=== PATIENT | female | born 1955 | race Caucasian/White ===

== ENCOUNTER 2020-08-29 08:57 | Outpatient (REF) | payer OTHER, SELFPAY | END 2020-08-29 08:58 | disposition home or self-care (01) | LOC: HO.HMGCLDS 08:57 | PROVIDERS: PCP Internal Medicine; Visit Provider Internal Medicine | DX: Z20.828 Contact with and (suspected) exposure to other viral communicable diseases (principal) | CPT/HCPCS: C9803; U0003 ==

== ENCOUNTER 2021-04-24 09:45 | Outpatient (REF) | payer OTHER, SELFPAY ==
--- NOTE | ~2021-04-24 | MM_ITS ---
EXAMINATION: MM SCREENING DIGITAL BREAST TOMOSYNTHESIS, BILATERAL CLINICAL INFORMATION: Screening. Asymptomatic. The lifetime risk of breast cancer based on the Tyrer-Cuzick Model is 7%. COMPARISON: Mammography: 04/28/2020, 04/22/2020, 04/17/2019, 03/27/2018, 03/04/2018, 02/13/2017 TECHNIQUE: Digital breast tomosynthesis is performed in both the craniocaudal and mediolateral oblique views along with computer-aided detection (CAD). Synthesized 2D images are generated from the tomosynthesis. FINDINGS: There are scattered areas of fibroglandular density (ACR BI-RADS breast composition Category b). Parenchymal pattern is similar to prior studies. No developing density. There are no significant masses, abnormal calcifications, or other abnormalities. There is biopsy clip marker again noted posterior 4:00 right breast. Scattered bilateral punctate round and vascular calcifications are again noted. The axilla and skin contours are unremarkable. MM/MM tomosynthesis screening BI IMPRESSION: No mammographic evidence of malignancy. ASSESSMENT: BI-RADS 2: Benign RECOMMENDATION: Routine annual mammography screening. This patient's information was entered into a reminder system with a target due date for their next mammogram.
== END 2021-04-24 09:46 | disposition home or self-care (01) ==
LOC: HO.MAMMO 09:45
PROVIDERS: PCP Internal Medicine; Visit Provider Internal Medicine
DX: Z12.31 Encounter for screening mammogram for malignant neoplasm of breast (principal)
CPT/HCPCS: 77063; 77067

== ENCOUNTER 2021-05-02 08:44 | Outpatient (REF) | payer OTHER, SELFPAY ==
[2021-05-05 03:37] LABS: HPV mRNA E6/E7 rflx Not Detected (Not Detected)
== END 2021-05-02 08:45 | disposition home or self-care (01) ==
LOC: HO.LAB 08:44
PROVIDERS: PCP Internal Medicine; Visit Provider Advanced Practice Midwife
DX: Z01.419 Encounter for gynecological examination (general) (routine) without abnormal findings (principal); Z11.51 Encounter for screening for human papillomavirus (HPV)
CPT/HCPCS: 87624; 88142

== ENCOUNTER 2021-06-16 09:57 | Outpatient (REF) | payer OTHER, SELFPAY ==
[2021-06-16 12:11] LABS: MANUAL DIFF FLAG NO
[2021-06-16 12:33] LABS: Basophils Percent Auto 0.5 % (0-2); Eosinophils Absolute Auto 0.1 X10*3/uL (0.0-0.4); Eosinophils Percent Auto 1.4 % (0-4); Hematocrit 41.8 % (37-47); Hemoglobin 13.7 g/dl (12.0-16.0); Imm Gran Abs Auto 0.01 X10*3/uL (0.00-0.03); Imm Gran Pct Auto 0.1 % (0.0-0.4); Lymphocytes Absolute Auto 2.7 X10*3/uL (1.2-4.9); Lymphocytes Percent Auto 36.4 % (20-40); Mean Corpuscular HGB Conc 32.8 g/dl (31.0-35.0); Mean Corpuscular Hemoglobin 31.1 pg (27.0-33.0); Mean Corpuscular Volume 94.8 fL (80-98); Mean Platelet Volume 10.4 fL (9.4-12.3); Monocytes Absolute Auto 0.4 X10*3/uL (0.1-1.2); Neutrophils Absolute Auto 4.1 X10*3/uL (2.0-8.3); Neutrophils Percent Auto 55.6 % (45-73); Platelet Count 351 X10*3/uL (160-400); Red Blood Count 4.41 X10*6/uL (4.20-5.50); Red Cell Distribution Width 13.1 % (11.0-16.0); White Blood Count 7.4 X10*3/uL (4.8-10.8)
[2021-06-16 12:51] LABS: Alanine Aminotransferase 32 U/L (0-31); Albumin Level 4.3 g/dL (3.5-5.0); Alkaline Phosphatase 70 U/L (39-117); Anion Gap 12 (12-20); Aspartate Amino Transferase 26 U/L (5-31); Bilirubin Total 0.6 mg/dL (0.0-1.0); Blood Urea Nitrogen 12 mg/dL (9-16); Calcium 9.1 mg/dL (8.4-10.2); Carbon Dioxide 29 mmol/L (22-29); Chloride 106 mmol/L (96-108); Cholesterol 212 mg/dL; Estimated Glomerular Filt Rate > 60; Glucose Fasting 97 mg/dL (60-99); HDL Cholesterol 62 mg/dL; LDL Cholesterol Calculated 126 mg/dl; Potassium 4.4 mmol/L (3.3-5.1); Sodium 143 mmol/L (135-145); Total Protein 6.9 g/dL (6.5-8.0); Triglycerides 120 mg/dL
[2021-06-16 13:17] LABS: Vitamin D 25-OH Total 34.7 ng/mL (>30)
== END 2021-06-16 09:58 | disposition home or self-care (01) ==
LOC: HO.HMGCLDS 09:57
PROVIDERS: PCP Internal Medicine; Visit Provider Internal Medicine
DX: Z00.00 Encounter for general adult medical examination without abnormal findings (principal)
CPT/HCPCS: 36415; 80053; 80061; 82306; 85025

== ENCOUNTER 2021-11-24 10:03 | Outpatient (REF) | payer MEDICARE, OTHER, SELFPAY ==
[2021-11-24 13:43] LABS: MANUAL DIFF FLAG NO
[2021-11-24 13:50] LABS: Basophils Absolute Auto 0.1 X10*3/uL (0.0-0.2); Basophils Percent Auto 0.7 % (0-2); Eosinophils Absolute Auto 0.1 X10*3/uL (0.0-0.4); Eosinophils Percent Auto 1.6 % (0-4); Hemoglobin 13.8 g/dl (12.0-16.0); Imm Gran Abs Auto 0.01 X10*3/uL (0.00-0.03); Imm Gran Pct Auto 0.1 % (0.0-0.4); Lymphocytes Absolute Auto 2.3 X10*3/uL (1.2-4.9); Lymphocytes Percent Auto 33.2 % (20-40); Mean Corpuscular HGB Conc 32.9 g/dl (31.0-35.0); Mean Corpuscular Hemoglobin 30.9 pg (27.0-33.0); Mean Platelet Volume 10.2 fL (9.4-12.3); Monocytes Absolute Auto 0.5 X10*3/uL (0.1-1.2); Monocytes Percent Auto 6.9 % (2-11); Neutrophils Absolute Auto 3.9 x10*3/uL (2.0-8.3); Neutrophils Percent Auto 57.5 % (45-73); Platelet Count 334 X10*3/uL (160-400); Red Blood Count 4.47 X10*6/uL (4.20-5.50); White Blood Count 6.8 X10*3/uL (4.8-10.8)
[2021-11-24 14:02] LABS: Alanine Aminotransferase 29 U/L (0-31); Albumin Level 4.5 g/dL (3.5-5.0); Alkaline Phosphatase 69 U/L (39-117); Anion Gap 13 (12-20); Aspartate Amino Transferase 23 U/L (5-31); Bilirubin Total 0.5 mg/dL (0.0-1.0); Blood Urea Nitrogen 13 mg/dL (9-16); C Reactive Protein 0.38 mg/dL (< or = 0.50); Calcium 9.3 mg/dL (8.4-10.2); Carbon Dioxide 28 mmol/L (22-29); Chloride 104 mmol/L (96-108); Estimated Glomerular Filt Rate > 60; Glucose Random 84 mg/dL (60-115); Lipase 17 U/L (8-78); Potassium 4.3 mmol/L (3.3-5.1); Sodium 141 mmol/L (135-145); Total Protein 7.2 g/dL (6.5-8.0)
[2021-11-27 16:41] LABS: Transglutaminase Ab IgG <1.0 U/mL; Transglutaminase IgA <1.0 U/mL
== END 2021-11-24 10:04 | disposition home or self-care (01) ==
LOC: HO.10HDL 10:03
PROVIDERS: Visit Provider Internal Medicine
DX: E78.00 Pure hypercholesterolemia, unspecified (principal); R63.4 Abnormal weight loss; R19.4 Change in bowel habit
CPT/HCPCS: 36415; 80053; 83690; 85025; 86140; 86364

== ENCOUNTER 2021-11-27 13:43 | Outpatient (REF) | payer MEDICARE, OTHER, SELFPAY ==
--- NOTE | ~2021-11-27 | CT_ITS ---
EXAMINATION: CT ABDOMEN AND PELVIS WITH CONTRAST CLINICAL INFORMATION: Diarrhea and weight loss. Change in bowel habits. COMPARISON: Previous CT of the abdomen and pelvis March 2016. TECHNIQUE: Multidetector volumetric images were obtained from the superior aspect of the liver through the pubic symphysis following administration 85 mL of Omnipaque 350 intravenous contrast. Sagittal and coronal reformatted images were obtained on the technologist's workstation. Oral contrast: Yes This CT examination was performed using dose optimization techniques as appropriate, variously including the following: *Automated exposure control *Adjustment of mA and/or kV according to patient size (this includes techniques or standardized protocols for targeted exams where dose is matched to indication/reason for exam; i.e. extremities or head) *Use of iterative reconstruction technique DLP: 516 mGy-cm FINDINGS: LUNG BASES: The visualized lung bases are clear. There is question of mild wall thickening of the distal thoracic esophagus. LIVER, GALLBLADDER, AND BILIARY TREE: The liver is low in attenuation suggestive of fatty infiltration. There is a 2 cm lesion in the central liver. This is similar in size to March 2016 exam. This demonstrates peripheral puddling enhancement and may represent a hemangioma. There is a second small low-attenuation 7 mm lesion in the caudate lobe axial image 17 series 3. This is similar to the 2016 exam as well. The gallbladder has been removed. There is no intrahepatic or extrahepatic biliary duct dilatation. PANCREAS: Unremarkable. SPLEEN: Unremarkable. ADRENAL GLANDS: Unremarkable. KIDNEYS AND URETERS: The kidneys are normal in size, shape, and attenuation. No hydronephrosis, hydroureter, or calculi seen. No perinephric stranding. BLADDER: Unremarkable. GASTROINTESTINAL TRACT: There is mild diverticulosis. The small and large bowel are otherwise unremarkable. The appendix is unremarkable. The stomach is unremarkable. ABDOMINAL WALL: There is diastasis of the rectus muscles and small umbilical hernia containing fat. LYMPH NODES: Normal. VASCULAR: There is evidence of atherosclerotic disease. No aneurysm is seen. PELVIC VISCERA: Unremarkable. OSSEOUS STRUCTURES: There are degenerative changes of the spine and hip joints. CT/CT abdomen pelvis w con IMPRESSION: Fatty liver. Two liver lesions stable from older exam from 2016 suggestive of benign liver lesions. Mild diverticulosis of the colon. No evidence of diverticulitis. Fleischner guidelines were followed.
[2021-11-27] MEDS: iohexoL 350 MG/ML 100 ML INFUS..BTL IV (14:57)
== END 2021-11-27 13:44 | disposition home or self-care (01) ==
LOC: HO.CT 13:43
PROVIDERS: PCP Internal Medicine; Visit Provider Internal Medicine
DX: R19.7 Diarrhea, unspecified (principal); R63.4 Abnormal weight loss; R19.4 Change in bowel habit
CPT/HCPCS: 74177; Q9967

== ENCOUNTER 2022-04-26 08:57 | Outpatient (REF) | payer MEDICARE, SELFPAY ==
--- NOTE | ~2022-04-26 | MM_ITS ---
EXAMINATION: MM SCREENING DIGITAL BREAST TOMOSYNTHESIS, BILATERAL CLINICAL INFORMATION: Screening. Asymptomatic. The lifetime risk of breast cancer based on the Tyrer-Cuzick Model is 7%. COMPARISON: Mammography: 06/05/2021, 04/28/2020, 04/22/2020, 04/17/2019, 03/04/2018; targeted right breast ultrasound 04/28/2020. TECHNIQUE: Digital breast tomosynthesis is performed in both the craniocaudal and mediolateral oblique views along with computer-aided detection (CAD). Synthesized 2D images are generated from the tomosynthesis. FINDINGS: There are scattered areas of fibroglandular density (ACR BI-RADS breast composition Category b). There are no significant masses, abnormal calcifications, or other abnormalities. There are scattered shifting fibroglandular parenchymal densities from year to year related to variation in positioning. No developing density or significant changes. The axilla are unremarkable. Again, there are scattered bilateral round and vascular calcifications. MM/MM tomosynthesis screening BI IMPRESSION: No significant changes from prior exams. ASSESSMENT: BI-RADS 2: Benign RECOMMENDATION: Routine annual mammography screening. This patient's information was entered into a reminder system with a target due date for their next mammogram.
== END 2022-04-26 08:58 | disposition home or self-care (01) ==
LOC: HO.MAMMO 08:57
PROVIDERS: Visit Provider Internal Medicine
DX: Z12.31 Encounter for screening mammogram for malignant neoplasm of breast (principal)
CPT/HCPCS: 77063; 77067

== ENCOUNTER 2023-01-21 09:28 | Outpatient (REF) | payer MEDICARE, SELFPAY ==
[2023-01-21 11:17] LABS: MANUAL DIFF FLAG NO
[2023-01-21 11:42] LABS: Basophils Absolute Auto 0.1 X10*3/uL (0.0-0.2); Basophils Percent Auto 0.7 % (0-2); Eosinophils Absolute Auto 0.1 X10*3/uL (0.0-0.4); Eosinophils Percent Auto 1.7 % (0-4); Hematocrit 41.5 % (37.0-47.0); Hemoglobin 13.7 g/dl (12.0-16.0); Imm Gran Abs Auto 0.01 X10*3/uL (0.00-0.03); Imm Gran Pct Auto 0.1 % (0.0-0.4); Lymphocytes Absolute Auto 2.7 X10*3/uL (1.2-4.9); Mean Corpuscular Hemoglobin 30.9 pg (27.0-33.0); Mean Corpuscular Volume 93.7 fL (80.0-98.0); Mean Platelet Volume 10.3 fL (9.4-12.3); Monocytes Absolute Auto 0.5 X10*3/uL (0.1-1.2); Monocytes Percent Auto 6.4 % (2-11); Neutrophils Absolute Auto 3.9 x10*3/uL (2.0-8.3); Neutrophils Percent Auto 54.1 % (45-73); Platelet Count 336 X10*3/uL (160-400); Red Blood Count 4.43 X10*6/uL (4.20-5.50); Red Cell Distribution Width 12.7 % (11.0-16.0); White Blood Count 7.2 X10*3/uL (4.8-10.8)
[2023-01-21 11:49] LABS: Alanine Aminotransferase 21 U/L (0-31); Albumin Level 4.2 g/dL (3.5-5.0); Alkaline Phosphatase 61 U/L (39-117); Anion Gap 11 (12-20); Aspartate Amino Transferase 19 U/L (5-31); Bilirubin Total 0.5 mg/dL (0.0-1.0); Blood Urea Nitrogen 14 mg/dL (9-16); Carbon Dioxide 28 mmol/L (22-29); Chloride 107 mmol/L (96-108); Cholesterol 179 mg/dL; Estimated Glomerular Filt Rate > 60; Glucose Fasting 88 mg/dL (60-99); HDL Cholesterol 57 mg/dL; LDL Cholesterol Calculated 103 mg/dl; Potassium 3.9 mmol/L (3.3-5.1); Sodium 142 mmol/L (135-145); Total Protein 6.6 g/dL (6.5-8.0); Triglycerides 97 mg/dL
[2023-01-21 12:06] LABS: Vitamin D 25-OH Total 35.3 ng/mL (>30)
== END 2023-01-21 09:29 | disposition home or self-care (01) ==
LOC: HO.HMGCLDS 09:28
PROVIDERS: PCP Internal Medicine; Visit Provider Internal Medicine
DX: Z00.00 Encounter for general adult medical examination without abnormal findings (principal)
CPT/HCPCS: 36415; 80053; 80061; 82306; 85025

== ENCOUNTER 2023-05-02 08:41 | Outpatient (REF) | payer MEDICARE, SELFPAY ==
--- NOTE | ~2023-05-02 | MM_ITS ---
EXAMINATION: BONE DENSITOMETRY CLINICAL INDICATION: Menopause. COMPARISON: This is the patient's baseline examination. TECHNIQUE: Using a Voxel (Internap) DXA System (software version: 13.1) manufactured by [employer], dual-energy x-ray absorptiometry was performed of the lumbar spine and left hip. The images are of good technical quality. Summary results are attached. FINDINGS: LEFT FEMUR, NECK: BMD 0.839 g/cm2, Z-score -0.3, T-score -1.4, osteopenia. LEFT FEMUR, TOTAL: BMD 0.947 g/cm2, Z-score 0.3, T-score -0.5, normal. AP SPINE L1-L4: BMD 1.068 g/cm2, Z-score 0.0, T-score -0.9, normal. IDENTIFIED RISK FACTORS: Menopause. HISTORY OF FRACTURE: None listed. MEDICATIONS: Calcium supplements or multivitamin, vitamin D. MM/XR DEXA axial skeleton IMPRESSION: 1. DIAGNOSIS: Osteopenia based on the lowest T-score value of -1.4 in the femoral neck applying World Health Organization criteria. 2. 10-YEAR FRACTURE RISK PREDICTION, FRAX: Major osteoporotic fracture (clinical spine, forearm, hip or shoulder) 7.5%. Hip fracture 0.7%. 3. Treatment Recommendations: NOF guidelines recommend consideration for treatment in postmenopausal women and men age 50 and older presenting with the following: -A hip or vertebral (clinical or morphometric) fracture. -T-score less than or equal to -2.5 at the femoral neck or spine after appropriate evaluation to exclude secondary causes. -Low bone mass at the hip or spine and a 10-year fracture probability by FRAX of greater than or equal to 3% for hip fracture or greater than or equal to 20% for major osteoporotic fracture based on the [place] adapted WHO algorithm. 4. Other Recommendations: All treatment decisions require clinical judgment and consideration of individual patient factors, including patient preferences, comorbidities, previous drug use, risk factors not captured in the FRAX model (e.g. frailty, falls, vitamin D deficiency, increased bone turnover, interval significant decline in bone density) and possible under or overestimation of fracture risk by FRAX. Additional medical evaluation for secondary cause of low bone mineral density may be appropriate. FUTURE SCAN RECOMMENDATION: People with diagnosed cases of osteoporosis or at high risk for fracture should have regular bone mineral density tests. For patients eligible for Medicare, routine testing is allowed once every 2 years. The testing frequency can be increased to one year for patients who have rapidly progressing disease, those who are receiving or discontinuing medical therapy to restore bone mass, or have additional risk factors.
--- NOTE | ~2023-05-02 | MM_ITS ---
EXAMINATION: MM SCREENING DIGITAL BREAST TOMOSYNTHESIS, BILATERAL CLINICAL INFORMATION: Screening. Asymptomatic. COMPARISON: Mammography: 04/26/2022, 04/24/2021, and dating back to 10/22/2012. TECHNIQUE: Digital breast tomosynthesis is performed in both the craniocaudal and mediolateral oblique views along with computer-aided detection (CAD). Synthesized 2D images are generated from the tomosynthesis. FINDINGS: There are scattered areas of fibroglandular density (ACR BI-RADS breast composition Category b). There are no suspicious masses, suspicious grouped calcifications, or areas of architectural distortion. The parenchymal pattern is stable from prior exams. There are bilateral vascular calcifications, and stable punctate loosely grouped calcifications with benign appearance in both breasts. Post benign biopsy clip far posterior medial right breast. MM/MM tomosynthesis screening BI IMPRESSION: No mammographic evidence of malignancy. Stable benign findings. ASSESSMENT: BI-RADS BI-RADS 2 - Benign Findings RECOMMENDATION: Routine annual mammography screening. 1 year F/U This examination should not preclude the clinical evaluation of a suspicious palpable abnormality. This patient's information was entered into a reminder system with a target due date for their next mammogram.
== END 2023-05-02 08:42 | disposition home or self-care (01) ==
LOC: HO.MAMMO 08:41
PROVIDERS: PCP Internal Medicine; Visit Provider Internal Medicine
DX: Z12.31 Encounter for screening mammogram for malignant neoplasm of breast (principal); Z13.820 Encounter for screening for osteoporosis; Z78.0 Asymptomatic menopausal state
CPT/HCPCS: 77063; 77067; 77080

== ENCOUNTER → 2023-05-02 09:15 | Outpatient (BNV) | payer MEDICARE, SELFPAY | PROVIDERS: PCP Internal Medicine; Visit Provider Radiology Diagnostic Radiology | DX: Z12.31 Encounter for screening mammogram for malignant neoplasm of breast (principal) | CPT/HCPCS: 77063; 77067; 77080 ==

== ENCOUNTER 2023-05-10 09:47 | Outpatient (AMB) | payer MEDICARE, SELFPAY ==
--- NOTE | 2023-05-10 09:52 | MHC.OFFVIS ---
Intake Vital Signs 05/10/23 09:55 Height 5 ft 2 in Weight 187 lb BMI 34.2 BP 122/74 Intake Visit Reasons: Annual Intake Note: no concerns The patient agreed to use of a medical reimbursement manager during this encounter. Scribed for MISTY Mercer by Vicenta Alba medical reimbursement manager, on 05/10/2023 at 10:30 am EST Crew Director Required: No Information Interpreted: non-clinical & clinical Lead Press Operator: Lead Press Operator Present (Marline HARO) Accompanied by: Self / Same As Patient Allergies No Known Allergies Allergy (Verified 05/10/23 09:56) Post menopausal: Yes HPI HPI Comments History of Present Illness Details She is a postmenopausal woman presenting for annual exam. 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 She attempts to eat a healthy diet including Calcium and Vitamin D. She stays active with walking, has not been able to recently due to weather. Not currently sexually active. Denies vaginal itching and irritation. Denies family hx of breast, colon and ovarian cancer. Last pap smear 2020. Last mammogram 05/02/23. UTD on colonoscopy. 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 [employer] Sexual orientation: Straight/Heterosexual Gender identity: Female Female Reproductive History Menstrual Age of Menarche: 12 Menopause type: natural Total pregnancies: 4 Full term: 4 Number of Living Children: 4 Date of last pap smear: 05/03/21 Date of Mammogram: 05/02/23 Date of last Bone Density Screenin05/02/23 Review of Systems Const All systems reviewed & are unremarkable except as noted in HPI and below Physical Exam Vital Signs: Last Vital Signs BP 122/74 05/10/23 09:55 BMI result Body Mass Index 34.2 Const General: cooperative, healthy appearing, no acute distress, well developed and alert Orientation/consciousness: patient oriented x3 HEENT Head: Yes normal to inspection Eyes General: appearance normal, both eyes and all related structures Neck Neck: Yes normal visual inspection Thyroid: Thyroid normal Chest Chest palpation & inspection: normal inspection of the chest Breast/axilla inspection: normal inspection of the breasts (no puckering, dimpling, peau de orange, retraction, discharge, masses) Breast/axilla palpation: normal palpation of the breasts Resp Effort & Inspection: normal respiratory effort GI Inspection: Yes normal to inspection Palpation (GI): Soft to palpation Rectal Exam - Female: deferred General: Yes bladder normal to palpation External Female Exam: normal external appearance and normal appearance of the urethra Speculum Exam - Vagina: normal appearance of the vagina, normal palpation and normal vaginal discharge Speculum Exam - Cervix: normal appearance of the cervix and normal palpation Bimanual exam- vagina & uterus: normal bimanual exam, normal palpation, uterine size normal, bladder normal to palpation and normal palpation Bimanual Exam- Adnexa, other: normal adnexae and no masses Skin General skin exam: no rashes or lesions noted Neuro General: patient oriented x3 Cognition (Neuro): normal cognition Extrem General: Yes normal to inspection Psych Attitude: cooperative Thought process: Normal thought process present Assessment & Plan Assessment & Plan (1) Encounter for annual routine gynecological examination: Code(s): Z01.419 - Encounter for gynecological examination (general) (routine) without abnormal findings Plan: Discussed: Current recommendations for pap smears per ASCCP guidelines. Breast awareness and periodic self breast exams. Encouraged yearly mammograms. Maintaining a healthy lifestyle including a well balanced diet including Calcium and Vitamin D and routine exercise. Contact office with any PMB. All of her questions and concerns were addressed to the best of my ability. RTO in one year for AG. Coding Level of Care Code Est Pt Prev Care >65y(42738) Diagnoses Encounter for annual routine gynecological examination Z01.419
[2023-05-10 09:55] VITALS: BP 122/74; BMI 34.2
== END 2023-05-10 10:37 | disposition home or self-care (01) ==
LOC: HO.HWS 09:47
PROVIDERS: PCP Internal Medicine; Visit Provider Advanced Practice Midwife
DX: Z01.419 Encounter for gynecological examination (general) (routine) without abnormal findings (principal)
CPT/HCPCS: G0101

== ENCOUNTER → 2023-05-10 09:47 | Outpatient (BNVA) | payer MEDICARE, SELFPAY | PROVIDERS: PCP Internal Medicine; Visit Provider Advanced Practice Midwife ==

== ENCOUNTER 2023-06-28 11:35 | Outpatient (REF) | payer MEDICARE, SELFPAY ==
--- NOTE | ~2023-06-28 | XR_ITS ---
EXAMINATION: XR HIP, RIGHT CLINICAL INFORMATION: Right hip pain COMPARISON: None available. TECHNIQUE: Two views of the right hip. AP pelvis FINDINGS: No fracture, dislocation or destructive process. There is marked narrowing of the central and inferior hip joint space with small marginal osteophyte extending off the femoral head. Small bone island is again seen in the right ischial tuberosity. There is mild cysts varying noted around the greater trochanters of both hips. The sacroiliac joints and pubic symphysis are within normal limits. There is also marked central and inferior narrowing of the left hip joint space. XR/XR hip RT min 2V IMPRESSION: 1. Marked osteoarthritis of the right hip. 2. Marked osteoarthritis of the left hip.
== END 2023-06-28 11:36 | disposition home or self-care (01) ==
LOC: HO.XRAY 11:35
PROVIDERS: PCP Internal Medicine; Visit Provider Internal Medicine
DX: M25.551 Pain in right hip (principal)
CPT/HCPCS: 73502

== ENCOUNTER 2023-07-04 09:42 | Outpatient (AMB) | payer MEDICARE, SELFPAY ==
[2023-07-04 11:38] VITALS: BP 138/82; PULSE 82; TEMP 36.9; O2SAT 96; BMI 34.2
--- NOTE | 2023-07-04 11:38 | MHC.OFFWIV ---
Intake Vital Signs 07/04/23 11:38 Height 5 ft 2 in Weight 84.822 kg BMI 34.2 BP 138/82 Blood Pressure Location Lt brachial Position Sitting Pulse 82 Pulse Source Pulse Oximeter Temp 98.4 F Temp Source Temporal Artery Scan Pulse Oximetry (%) 96 Intake Visit Reasons: EST/righ pointer finger injury/[phone] Intake Note: pt is here for c/o left pointer finger injury that happened years ago, pt states theres pain today and wants to have it be looked at Patient Tobacco Use Status: Never used Tobacco Allergies No Known Allergies Allergy (Verified 07/04/23 11:39) Do you need a note to return to daycare/school/sports/work: Yes HPI HPI Comments History of Present Illness Details this is a 67-year-old female presenting with redness to the tip of her left middle finger and swelling with a small bruise, patient reports bruises typically there, she reports that she injured this finger years ago and since then this fingers been giving her issues. Reports pain that is worse with movement and better at rest. Denies recent trauma. Denies fevers, chills, headache, vision changes, dizziness, weakness, chest pain, shortness of breath, numbness and tingling. Physical exam with slight erythema to the distal aspect of left middle finger. Full range of motion that is painless. 2+ radial pulses, no wrist drop. Concerns for possible gout versus inflammatory arthritis versus sprain or strain. Unlikely fracture, dislocation, threat to ruiz, arterial occlusion are venous occlusion. Plan will discharge with prednisone, orthopedic follow-up in obtain an x-ray. Educated patient on diagnosis and treatment plan, answered all question, patient verbalizes understanding. At this time patient will be discharged home, advised to return with new or worsening symptoms. Educated on worrisome signs and symptoms and when to return. At this time I feel comfortable discharge home. 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 [employer] Sexual orientation: Straight/Heterosexual Gender identity: Female Female Reproductive History Menstrual Age of Menarche: 12 Review of Systems Const Details: Constitutional : No Weight loss, No Fever, No Chills, No Fatigue, No Malaise ENT/Mouth : No sore throat, No Rhinorrhea Eyes: No Eye Pain, No Swelling, No Redness Cardiovascular : No Chest Pain, No SOB, No Dyspnea on Exertion, No Orthopnea, No Edema, No Palpitations Respiratory : No Cough, No Sputum, No Wheezing Gastrointestinal : No Nausea, No Vomiting, No Diarrhea, No Constipation, No abdominal Pain, No Hematochezia, No Melena Genitourinary : No Dysuria, No Urinary Frequency, No Hematuria, Musculoskeletal : + joint pain, No Myalgias, No Joint Swelling Skin : No Skin Lesions, No rash Neuro : No Weakness, No Numbness, No Dizziness, No Headache Psych : No Anxiety/Panic, No Depression All other systems reviewed and are negative All systems reviewed & are unremarkable except as noted in HPI and below Physical Exam Vital Signs: Last Vital Signs Temp 98.4 F 07/04/23 11:38 Pulse 82 07/04/23 11:38 BP 138/82 07/04/23 11:38 Pulse Ox 96 07/04/23 11:38 BMI result Body Mass Index 34.2 vss Appearance: Alert.? Oriented X3.? No acute distress.? Head: Normocephalic, atraumatic, no step-offs or deformities Eyes: Pupils equal, round and reactive to light.? CVS: Normal heart rate and rhythm.? Pulses normal.? Respiratory: No respiratory distress.? Breath sounds normal.? Abdomen: Soft and nontender.? Skin: Skin warm and dry.? Normal skin color.? Normal skin turgor.? Extremities: No lower extremity edema.? No calf ttp. 5/5 strength to bilateral upper and lower extremities slight erythema to the distal aspect of left middle finger. Full range of motion that is painless. 2+ radial pulses, no wrist drop. Back: No midline tenderness, no C-spine tenderness, full range of motion, no CVA tenderness bilaterally Neuro: Oriented X 3.? No motor deficit.? No sensory deficit. CN 2-12 intact Assessment & Plan Assessment & Plan (1) Finger pain, left: Code(s): M79.645 - Pain in left finger(s) Plan Take your medications as prescribed. If you were prescribed antibiotics today, it is important that you take your medication to their entirety, do not skip any doses, do not finish them early. Follow-up with your primary care provider this week. Return to the emergency department with new or worsening symptoms. Such as fevers, chills, chest pain, shortness of breath, nausea, vomiting, dizziness, headache, vision changes, lethargy In case of emergency call 911 Orders: Orders XR hand LT 2V Today M79.645 - Pain in left finger(s) Referrals Orthopedics Referral M79.645 - Pain in left finger(s) Medications: New prednisone 40 mg (2 x 20 mg) PO DAILY 10 tabs 0RF 5 days acetaminophen (Tylenol) 650 mg (2 x 325 mg) PO Q4H PRN 30 tabs 0RF pain Coding Level of Care Code Est Pt Level 3 (58434) Diagnoses Finger pain, left M79.645
== END 2023-07-04 13:03 | disposition home or self-care (01) ==
PROVIDERS: PCP Internal Medicine; Visit Provider Physician Assistant
DX: M79.645 Pain in left finger(s) (principal)
CPT/HCPCS: 99213

== ENCOUNTER 2023-07-04 11:58 | Outpatient (REF) | payer MEDICARE, SELFPAY ==
--- NOTE | ~2023-07-04 | XR_ITS ---
EXAMINATION: XR HAND, LEFT CLINICAL INFORMATION: Pain in the fingers, left. COMPARISON: 01/21/2012 TECHNIQUE: PA, lateral, and oblique views of the left hand. FINDINGS: There is no evidence of acute fracture or dislocation of the left hand. The carpal, carpometacarpal, and metacarpophalangeal joints are maintained. No significant narrowing of the proximal interphalangeal joints is identified. There is spurring seen about the 1st interphalangeal joint. There is joint space narrowing with marginal spurring seen involving the distal interphalangeal joints most significant involving the 4th and 5th distal interphalangeal joints. No significant erosive changes are appreciated. XR/XR hand LT 2V IMPRESSION: Findings of osteoarthritis, distal interphalangeal joints.
== END 2023-07-04 11:59 | disposition home or self-care (01) ==
LOC: HO.HMGCX 11:58
PROVIDERS: PCP Internal Medicine; Visit Provider Physician Assistant
DX: M79.645 Pain in left finger(s) (principal)
CPT/HCPCS: 73120

== ENCOUNTER 2023-07-22 09:31 | Outpatient (AMB) | payer MEDICARE, SELFPAY ==
--- NOTE | 2023-07-22 09:33 | A.OFFVIS_ITS ---
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 Patient reports having an injury years ago, she recently presented [place] [facility] [place]04[place]23 where she was prescribed prednisone and referred to orthopedics. Currently is not having pain or discomfort at the moment. She states not taking the prednisone, however she took Aleve which gave her relief. Patient has concerns of her right hip pain. 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 She was seen at walk-in clinic on 07/04/23 where she was prescribed prednisone and referred to our of joss. She states she has no pain or discomfort in her finger at the moment. She has discontinued taking prednisone however she does finds relief with Aleve. She does not have a history of gout. 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 [employer] Sexual orientation: Straight/Heterosexual Gender identity: Female Female Reproductive History Menstrual Age of Menarche: 12 Review of Systems Const All systems reviewed & are unremarkable except as noted in HPI and below Physical Exam Vital Signs: BMI result Body Mass Index 34.2 Const General: cooperative, healthy appearing, comfortable, no acute distress, well developed and alert Orientation/consciousness: patient oriented x3 HEENT Head: Yes normal to inspection, Yes normocephalic and Yes atraumatic Eyes General: appearance normal, both eyes and all related structures Resp Effort & Inspection: normal respiratory effort and able to speak in complete sentences Cardio Rate: regular rate Peripheral pulses: Peripheral pulses 2+ throughout GI Palpation (GI): Soft to palpation Skin Lesions: no lesions Rashes: no rashes Neuro General: patient oriented x3 Extrem Other: Left index finger: Normal to inspection. No redness no swelling. She has full sensation throughout the digit and she can fully extend and flex the digit. 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 I did explain that if she develops any type of redness, increased pain or swelling. She can try doing warm soapy water soaks but she can also contact the office or return to urgent care to see if she needs antibiotics, otherwise she will follow-up as needed. Patient Instructions: Scribed for Celia Connelly PA-C, by Lupillo Oconnor nuclear medical technologist, on 07/22/2023 at 9:45 AM EST. ICelia PA-C, have personally reviewed and agree with the information entered by the scribe. 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
[2023-07-22 09:34] VITALS: BMI 34.2
== END 2023-07-22 10:20 | disposition home or self-care (01) ==
PROVIDERS: PCP Internal Medicine; Visit Provider Physician Assistant
DX: M15.1 Heberden's nodes (with arthropathy) (principal)
CPT/HCPCS: 99203

== ENCOUNTER → 2023-07-22 09:31 | Outpatient (BNVA) | payer MEDICARE, SELFPAY | PROVIDERS: PCP Internal Medicine; Visit Provider Physician Assistant | DX: M15.1 Heberden's nodes (with arthropathy) (principal) | CPT/HCPCS: 99202 ==

== ENCOUNTER 2023-10-16 09:00 | Outpatient (RCR) | payer MEDICARE, SELFPAY | END 2023-11-18 11:12 | disposition home or self-care (01) | LOC: HO.PTCHIC 09:00 | PROVIDERS: PCP Internal Medicine; Visit Provider Internal Medicine | DX: M25.551 Pain in right hip (principal) | CPT/HCPCS: 97110; 97140; 97161; 97162 ==

== ENCOUNTER 2023-11-22 09:13 | Outpatient (AMB) | payer MEDICARE, SELFPAY ==
--- NOTE | 2023-11-22 09:25 | MHC.OFFVIS ---
Intake Vital Signs 11/22/23 09:26 Height 5 ft 2 in Weight 187 lb BMI 34.2 Intake Visit Reasons: New prob - Right hip pain Intake Note: Margot 68 yr old female presents today for a new problem visit for her right hip pain. States pain started over a year ago and has worsen since. Pain in her groin when sitting and standing, feels like it locks at times and lifting her leg when walking up a flight of stairs. Patient has tried and failed P.T. She recall about 3 years ago she fell down the stairs with no fractures. Denies numbness and tinging in toes. States alieve helps temporarily. Allergies No Known Allergies Allergy (Verified 11/22/23 09:32) Medication List - Last Reconciled 11/22/23 by BONITA Walters-C acetaminophen (Tylenol) 650 mg (2 x 325 mg) PO Q4H PRN cholecalciferol (vitamin D3) 10 mcg PO DAILY simvastatin 40 mg PO DAILY HPI New prob - Right hip pain HPI Details 68-year-old female who presents to the office today for evaluation of right hip pain for over a year. She states she has worsening pain in her groin region which is aggravated with sitting and standing. She also c/o occasional locking in her leg with going upstairs. She denies any numbness or tingling in toes. She finds transient relief with Aleve. She had undergone physical therapy in the past which provided her with minimal relief. She has a history of fall down the stairs about 3 years ago. 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 [employer] Sexual orientation: Straight/Heterosexual Gender identity: Female Female Reproductive History Menstrual Age of Menarche: 12 Review of Systems Const All systems reviewed & are unremarkable except as noted in HPI and below Physical Exam Vital Signs: BMI result Body Mass Index 34.2 Const General: cooperative and no acute distress Orientation/consciousness: patient oriented x3 Resp Effort & Inspection: normal respiratory effort and able to speak in complete sentences Cardio Peripheral pulses: Peripheral pulses 2+ throughout Neuro General: patient oriented x3 Extrem Other: Right hip: Normal to inspection, ambulates with a slight limp. Has mild discomfort with internal and extension rotation of hip. No significant stiffness. Mild discomfort with hip flexion against resistance. NVI. Results Reviewed Results Reviewed: xrays of the right hip obtained on 06/28/23 show mild hip oa Assessment & Plan Assessment & Plan (1) Osteoarthritis of right hip: Code(s): M16.11 - Unilateral primary osteoarthritis, right hip Qualifiers: Osteoarthritis type: primary Qualified Code(s): M16.11 - Unilateral primary osteoarthritis, right hip Plan We discussed options which include conservative vs surgical intervention. At this time, she will proceed with intraarticular steroid injection which will be performed under fluoroscopy in the hospital. She will call me to discuss the symptoms if it persists or worsen and meet with Dr. Stevenson to discuss surgical intervention. Orders: Orders FL arthrogram hip RT Today M16.11 - Unilateral primary osteoarthritis, right hip Patient Instructions: Scribed for Celia Connelly PA-C, by Lupillo Oconnor medical apparatus model maker, on 11/22/2023 at 9:30 AM EST. ICelia PA-C, have personally reviewed and agree with the information entered by the scribe. Coding Level of Care Code New Pt Level 3 (57612) Diagnoses Primary osteoarthritis of right hip M16.11 Osteoarthritis type: primary
[2023-11-22 09:26] VITALS: BMI 34.2
== END 2023-11-22 10:05 | disposition home or self-care (01) ==
PROVIDERS: PCP Internal Medicine; Visit Provider Physician Assistant
DX: M16.11 Unilateral primary osteoarthritis, right hip (principal)
CPT/HCPCS: 99213

== ENCOUNTER → 2023-11-22 09:13 | Outpatient (BNVA) | payer MEDICARE, SELFPAY | PROVIDERS: PCP Internal Medicine; Visit Provider Physician Assistant | DX: M16.11 Unilateral primary osteoarthritis, right hip (principal) | CPT/HCPCS: 99212 ==

== ENCOUNTER 2023-12-19 12:54 | Outpatient (REF) | payer MEDICARE, SELFPAY ==
--- NOTE | ~2023-12-19 | FL_ITS ---
RIGHT HIP STEROID INJECTION INDICATIONS: Right hip pain. Intra-articular steroid injection is requested. Procedure: Risks and benefits and possible complications were discussed with the patient and the consent form was signed. The patient was placed supine on the fluoroscopy table. The right hip was prepped and draped in normal sterile fashion. 1% buffered lidocaine was used for anesthesia. A 22-gauge spinal needle was used to access the hip joint. Intra-articular position of the needle within the hip joint was verified using 3 cc of Omnipaque 300. A total of 5 mL 1% lidocaine and 80 mg Depo-Medrol was injected into the right hip joint. The needle was then removed and a Band-Aid was applied to the injection site. The patient tolerated the procedure well. There were no immediate complications. Spot image demonstrates mild arthritic changes of the right hip with mild axial joint space loss. There are small subcapital and superolateral acetabular osteophytes. FL/FL arthrogram hip RT Impression: Successful fluoroscopic right hip steroid injection. The procedure was performed by Pool Rowe PA-C, and directly supervised by Dr. Mc.
== END 2023-12-19 12:55 | disposition home or self-care (01) ==
LOC: HO.XRAY 12:54
PROVIDERS: PCP Internal Medicine; Visit Provider Physician Assistant
DX: M16.11 Unilateral primary osteoarthritis, right hip (principal)
CPT/HCPCS: 27093; 73525

== ENCOUNTER → 2023-12-19 12:57 | Outpatient (BNV) | payer MEDICARE, SELFPAY | PROVIDERS: PCP Internal Medicine; Visit Provider Physician Assistant Surgical | DX: M16.11 Unilateral primary osteoarthritis, right hip (principal) | CPT/HCPCS: 20610; 77002 ==

== ENCOUNTER 2024-01-03 09:16 | Outpatient (AMB) | payer MEDICARE, SELFPAY ==
[2024-01-03 09:23] VITALS: BMI 34.2
--- NOTE | 2024-01-03 09:23 | A.OFFVIS_ITS ---
Vital Signs 01/03/24 09:23 Height 5 ft 2 in Weight 187 lb BMI 34.2 Intake Visit Reasons: OV-Right Hip sharp Pain/Clicking noise Intake Note: Margot is a 68 year old female who presents today for a follow up of her right hip pain. Right Hip Arthrogram done 12/19/23. Patient reports that her pain has improved since the injection however she is experiencing a catching/clicking that she feels with gait initiation. Allergies No Known Allergies Allergy (Verified 11/22/23 09:32) Medication List - Last Reconciled 01/03/24 by Celia Connelly PA-C acetaminophen (Tylenol) 650 mg (2 x 325 mg) PO Q4H PRN cholecalciferol (vitamin D3) 10 mcg PO DAILY simvastatin 40 mg PO DAILY HPI HPI OV-Right Hip sharp Pain/Clicking noise: Details: 68-year-old female who returns to the office today for a follow-up of right hip pain. She had a right hip arthrogram on 12/19/23. She states she has improvement in her pain since the injection however she continues to have a sharp pain and clicking sensation in her hip with gait initiation. She denies any numbness or tingling. She has no other concerns today. 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 [employer] Sexual orientation: Straight/Heterosexual Gender identity: Female Female Reproductive History Menstrual Age of Menarche: 12 Review of Systems Const All systems reviewed & are unremarkable except as noted in HPI and below Physical Exam Vital Signs: BMI result Body Mass Index 34.2 Const General: cooperative and no acute distress Orientation/consciousness: patient oriented x3 Resp Effort & Inspection: normal respiratory effort and able to speak in complete sentences Cardio Peripheral pulses: Peripheral pulses 2+ throughout Neuro General: patient oriented x3 Extrem Other: Right hip: Normal to inspection, ambulates with a slight limp. Has mild discomfort with internal and extension rotation of hip. No significant stiffness. Mild discomfort with hip flexion against resistance. NVI. Assessment & Plan Assessment & Plan (1) Osteoarthritis of right hip: Code(s): M16.11 - Unilateral primary osteoarthritis, right hip Category: Medical Qualifiers: Osteoarthritis type: primary Qualified Code(s): M16.11 - Unilateral primary osteoarthritis, right hip Plan She will continue to increase activity as tolerated based on the symptoms. I would like her to keep track of any limitations that she is experiencing over the next few weeks. She will see me back in [address] Stevenson to discuss next step in her treatment if her pain returns or she has significant limitations. She is content with this plan and will see me back sooner if needed. Patient Instructions: Scribed for Celia Connelly PA-C, by Lupillo Oconnor outside medical sales representative, on 01/03/2024 at 9:30 AM EST. ICelia PA-C, have personally reviewed and agree with the information entered by the scribe.
== END 2024-01-03 10:01 | disposition home or self-care (01) ==
PROVIDERS: PCP Internal Medicine; Visit Provider Physician Assistant
DX: M16.11 Unilateral primary osteoarthritis, right hip (principal)
CPT/HCPCS: 99213

== ENCOUNTER → 2024-01-03 09:16 | Outpatient (BNVA) | payer MEDICARE, SELFPAY | PROVIDERS: PCP Internal Medicine; Visit Provider Physician Assistant | DX: M16.11 Unilateral primary osteoarthritis, right hip (principal) | CPT/HCPCS: 99212 ==

== ENCOUNTER 2024-01-27 08:49 | Outpatient (AMB) | payer MEDICARE, SELFPAY ==
--- NOTE | 2024-01-27 08:52 | A.OFFVIS_ITS ---
Intake Visit Reasons: OV - right hip pain Intake Note: Margot is a 68 year old female who presents today for a follow up of her right hip pain. Patient reports her pain has improved since right hip arthrogram done on 12/19/23 however she feels pain every once in a while or with moving the wrong way. States she continues to notice a clicking sound with walking. Allergies No Known Allergies Allergy (Verified 01/27/24 09:08) HPI HPI OV - right hip pain: Details: 68-year-old female who returns to the office today for a follow-up of right hip pain. She states she has improvement in her pain today however she experiences pain occasionally or with moving the wrong way. She also c/o clicking in her hip with ambulation and standing. She had a hip injection which provided her relief. She has no other concerns. 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 Has mild discomfort with internal and extension rotation of hip. No significant stiffness. Mild discomfort with hip flexion against resistance. NVI. Assessment & Plan Assessment & Plan (1) Osteoarthritis of right hip: Code(s): M16.11 - Unilateral primary osteoarthritis, right hip Category: Medical Qualifiers: Osteoarthritis type: primary Qualified Code(s): M16.11 - Unilateral primary osteoarthritis, right hip Plan She will continue with her daily activities as tolerated. She is not feeling significantly limited in her AODLs with injection but she would like to know how long it can last so she will see us back with Dr. Stevenson to determine her treatment. Patient Instructions: Scribed for Celia Connelly PA-C, by Lupillo Oconnor medical coding manager, on 01/15/2024 at 9:00 AM ISRA. Celia Gann PA-C, have personally reviewed and agree with the information entered by the scribe. Coding Level of Care Code Est Pt Level 3 (50353) Diagnoses Primary osteoarthritis of right hip M16.11 Osteoarthritis type: primary
== END 2024-01-27 09:30 | disposition home or self-care (01) ==
PROVIDERS: PCP Internal Medicine; Visit Provider Physician Assistant
DX: M16.11 Unilateral primary osteoarthritis, right hip (principal)
CPT/HCPCS: 99213

== ENCOUNTER → 2024-01-27 08:49 | Outpatient (BNVA) | payer MEDICARE, SELFPAY | PROVIDERS: PCP Internal Medicine; Visit Provider Physician Assistant | DX: M16.11 Unilateral primary osteoarthritis, right hip (principal) | CPT/HCPCS: 99212 ==

== ENCOUNTER 2024-03-09 09:08 | Outpatient (AMB) | payer MEDICARE, SELFPAY ==
[2024-03-09 09:19] VITALS: BMI 34.2
--- NOTE | 2024-03-09 09:19 | A.OFFVIS_ITS ---
Vital Signs 03/09/24 09:19 Height 5 ft 2 in Weight 187 lb BMI 34.2 Intake Visit Reasons: ov- Rt hip s/p inj 12/19/23 Intake Note: Margot, 68 yr old female, presents today for s/p RT hip injection. Pt reports the injection working well for about 2 months, but has now worn off. She feels grinding and clicking while walking and a sharp pain when standing up and trying to take her first step. She has to move her leg around a bit before she is able to take her first step after sitting. Allergies No Known Allergies Allergy (Verified 04/08/24 06:53) HPI HPI ov- Rt hip s/p inj 12/19/23: Details: Margot is here to discuss right PAOLA. She is scheduled for ~ 2weeks. She is ready. We have discussed this previously. [facility] Medical History Osteoarthritis High cholesterol Surgical History Hx of colonoscopy History of delivery Hx of cholecystectomy History of nasal surgery History of breast surgery Tubal ligation status Family History Maternal Aunt Breast [place] Social History Household Members: Family Housing: House Are you a primary child care lead teacher to a significant other at home: No Do you presently have visiting nurse or other home services: No 75 years or older and lives alone: No Alcohol intake: never Comment: aware of trip hazard Patient Tobacco Use Status: Never used Tobacco service: No Current occupational status: employed 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 [employer] Sexual orientation: Straight/Heterosexual Gender identity: Female Female Reproductive History Menstrual Age of Menarche: 12 Physical Exam Vital Signs: BMI result Body Mass Index 34.2 Const General: cooperative and no acute distress Orientation/consciousness: patient oriented x3 Resp Effort & Inspection: normal respiratory effort and able to speak in complete sentences Cardio Peripheral pulses: Peripheral pulses 2+ throughout Neuro General: patient oriented x3 Extrem Other: Right hip: + gait antalgia + impingement Assessment & Plan Assessment & Plan (1) Osteoarthritis of right hip: Code(s): M16.11 - Unilateral primary osteoarthritis, right hip Category: Medical Qualifiers: Osteoarthritis type: primary Qualified Code(s): M16.11 - Unilateral primary osteoarthritis, right hip Plan: Pt has been scheduled for surgery and is anticipating surgery. All her questions were answered. Have previously discussed surgery. Coding Level of Care Code Est Pt Level 2 (25225) Diagnoses Primary osteoarthritis of right hip M16.11 Osteoarthritis type: primary
== END 2024-03-09 12:41 | disposition home or self-care (01) ==
PROVIDERS: PCP Internal Medicine; Visit Provider Orthopaedic Surgery
DX: M16.11 Unilateral primary osteoarthritis, right hip (principal)
CPT/HCPCS: 99212

== ENCOUNTER → 2024-03-09 09:08 | Outpatient (BNVA) | payer MEDICARE, SELFPAY | PROVIDERS: PCP Internal Medicine; Visit Provider Orthopaedic Surgery | DX: Z01.818 Encounter for other preprocedural examination (principal); M16.11 Unilateral primary osteoarthritis, right hip | CPT/HCPCS: 99212 ==

== ENCOUNTER → 2024-03-12 08:58 | Outpatient (BNVA) | payer MEDICARE, SELFPAY | PROVIDERS: PCP Internal Medicine | DX: Z01.818 Encounter for other preprocedural examination (principal) ==

== ENCOUNTER → 2024-03-30 10:58 | Outpatient (BNV) | payer MEDICARE, SELFPAY | PROVIDERS: Admitting Provider Orthopaedic Surgery; PCP Internal Medicine; Visit Provider Internal Medicine Cardiovascular Disease | DX: I49.3 Ventricular premature depolarization (principal); Z01.810 Encounter for preprocedural cardiovascular examination | CPT/HCPCS: 93010 ==

== ENCOUNTER 2024-04-02 10:29 | Outpatient (REF) | payer MEDICARE, SELFPAY ==
--- NOTE | ~2024-04-02 | XR_ITS ---
EXAMINATION: XR HIP, RIGHT CLINICAL INFORMATION: Right hip pain COMPARISON: 06/28/2023 TECHNIQUE: AP radiograph of the pelvis. AP and frog-lateral views of the right hip. FINDINGS: Moderate-severe medial joint space narrowing. No fracture or malalignment. No suspicious bone lesion or soft tissue calcification. Mild left hip osteoarthritis. XR/XR hip RT min 2V IMPRESSION: Moderate right and mild left hip arthritis.
== END 2024-04-02 10:30 | disposition home or self-care (01) ==
LOC: HO.HOSX 10:29
PROVIDERS: Visit Provider Physician Assistant
DX: Z01.818 Encounter for other preprocedural examination (principal); M16.11 Unilateral primary osteoarthritis, right hip
CPT/HCPCS: 73502; 99212

== ENCOUNTER 2024-04-02 10:40 | Outpatient (AMB) | payer MEDICARE, SELFPAY ==
--- NOTE | 2024-04-02 10:53 | MHC.OFFVIS ---
Intake Visit Reasons: Pre-Op: R PAOLA w/NE 04/08/24 Intake Note: Margot is a 68 year old female who presents today for a pre op appointment for her R POALA w/NE 04/08/24. Patient was given the pain management form and signed. Allergies No Known Allergies Allergy (Verified 04/02/24 10:53) HPI HPI Pre-Op: R PAOLA w/NE 04/08/24: Details: 68-year-old female who presents in the office today for her preoperative history and physical exam prior to a right total hip arthroplasty to be performed on 04/08/[address] Oliver Stevenson.? ? Patient confirms no prior complications with surgery. Patient has no known allergy history.? ? Patient is currently taking, as follows:? -Acetaminophen 650 ng PO Q4H PRN? -Cholecalciferol 10 mcg PO daily? -Simvastatin 40 mg PO daily? ? Patient has a medical history, as follows:? -High cholesterol? ? Patient has a surgical history, as follows:? -Hx of colonoscopy? -Hx of delivery; X4? -Hx of cholecystectomy? -Hx of nasal surgery; right?? -Hx of breast surgery; right? -Hx of tuballigation? ? Patient has a social history, as follows:? 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 PFSH Medical History (Updated 03/30/24 @ 10:13 by Monica Crews RN) Osteoarthritis High cholesterol Surgical History (Updated 03/30/24 @ 09:51 by Monica Crews RN) Hx of colonoscopy History of delivery Hx of cholecystectomy History of nasal surgery History of breast surgery Tubal ligation status Family History Maternal Aunt Breast CA Social History (Updated 03/30/24 @ 10:13 by Monica Crews RN) Household Members: Family Housing: House Are you a primary career guidance technician to a significant other at home: No Do you presently have visiting nurse or other home services: No 75 years or older and lives alone: No Alcohol intake: never Comment: aware of trip hazard Patient Tobacco Use Status: Never used Tobacco Use of substances other than those prescribed or required for medical reasons: No Current occupational status: employed 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 [employer] Sexual orientation: Straight/Heterosexual Gender identity: Female Female Reproductive History Menstrual Age of Menarche: 12 Review of Systems Const All systems reviewed & are unremarkable except as noted in HPI and below Physical Exam Const General: cooperative, healthy appearing, comfortable, no acute distress, well developed, alert and awake Orientation/consciousness: patient oriented x3 HEENT Head: Yes normal to inspection, Yes normocephalic and Yes atraumatic Eyes General: appearance normal, both eyes and all related structures Neck Neck: Yes normal visual inspection and Yes no lymphadenopathy Resp Effort & Inspection: normal respiratory effort and able to speak in complete sentences Cardio Rate: regular rate Peripheral pulses: Peripheral pulses 2+ throughout GI Inspection: Yes normal to inspection Palpation (GI): Soft to palpation Skin General skin exam: no rashes or lesions noted Neuro General: patient oriented x3 Extrem Other: Right hip: Normal to inspection, ambulates with a slight limp. Has mild discomfort with internal and extension rotation of hip. No significant stiffness. Mild discomfort with hip flexion against resistance. NVI. Psych Mental Status: mental status grossly normal Assessment & Plan Assessment & Plan (1) Osteoarthritis of right hip: Code(s): M16.11 - Unilateral primary osteoarthritis, right hip Category: Medical Qualifiers: Osteoarthritis type: primary Qualified Code(s): M16.11 - Unilateral primary osteoarthritis, right hip Plan Ms. Johnson is a 68-year-old female who presents in the office today for her preoperative history and physical exam prior to a right total hip arthroplasty to be performed on 04/08/[address] Oliver Stevenson.? Patient confirms no prior complications with surgery. ? Patient has no known allergy history.? ? Patient is currently taking, as follows:? -Acetaminophen 650 ng PO Q4H PRN? -Cholecalciferol 10 mcg PO daily? -Simvastatin 40 mg PO daily? ? Patient has a medical history, as follows:? -High cholesterol? ? Patient has a surgical history, as follows:? -Hx of colonoscopy? -Hx of delivery; X4? -Hx of cholecystectomy? -Hx of nasal surgery; right?? -Hx of breast surgery; right? -Hx of tuballigation? ? Patient has a social history, as follows:? 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 ? I discussed in detail the procedure and what to expect pre and post operatively. We discussed the risks, benefits, alternatives to the surgery and the rehabilitation course. The risks include infection, bleeding, nerve injury, ongoing pain, swelling, and stiffness, perioperative risk of injury to bones and soft tissues, and blood clots.?? ? I have answered all questions and with their understanding they have consented to move forward with a right total hip arthroplasty to be performed on 04/08/[address] Oliver Stevenson.? My card was given to the patient should she have any questions. ? Follow-up will be at the post operative appointment on 04/23/2024, or sooner if needed.? ? X-rays were obtained in the office today for surgical planning. ? Patient would like to attend PT in [place]. This order was placed in the office today. Outpatient PT will begin two weeks postop. Orders: Orders PT Evaluation and Treatment Today M16.11 - Unilateral primary osteoarthritis, right hip Patient Instructions: Scribed by Yojana Canchola medical insurance claims specialist, for Misti Trinidad PA-C on 04/02/2024 at 10:46 am, EST.? Coding Level of Care Code Global (78934) Diagnoses Primary osteoarthritis of right hip M16.11 Osteoarthritis type: primary
== END 2024-04-02 12:23 | disposition home or self-care (01) ==
PROVIDERS: PCP Internal Medicine; Visit Provider Physician Assistant
DX: M16.11 Unilateral primary osteoarthritis, right hip (principal)
CPT/HCPCS: 99024

== ENCOUNTER 2024-04-08 07:34 | Inpatient (IN) | payer MEDICARE, SELFPAY ==
--- NOTE | 2024-03-30 | ECG_ITS ---
Test Reason : PREOP Blood Pressure : / mmHG Vent. Rate : 084 BPM Atrial Rate : 084 BPM P-R Int : 148 ms QRS Dur : 078 ms QT Int : 364 ms P-R-T Axes : 054 020 043 degrees QTc Int : 430 ms Sinus rhythm with occasional Premature ventricular complexes Otherwise normal ECG When compared with ECG of 31-MAY-2015 14:34, Premature ventricular complexes are now Present Premature atrial complexes are no longer Present Referred By: Pamela Lopez Electronically Signed By:JONES DAMON MD
[2024-03-30 09:54] VITALS: BP 169/79; PULSE 86; RESP 16; O2SAT 96; BMI 34.2
--- NOTE | 2024-03-30 10:19 | HO.ANESPROP2 ---
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 (Acute) Encounter for annual routine gynecological examination (Acute) Past Medical History Medical History Osteoarthritis High cholesterol Family History Family History Maternal Aunt Breast [place] Family history of problems with anesthesia: No Surgical History Surgical History Hx of colonoscopy History of delivery Hx of cholecystectomy History of nasal surgery History of breast surgery Tubal ligation status History of Problems with Anesthesia: No Social History Social History Household Members: Family Housing: House Are you a primary resident care assistant to a significant other at home: No Do you presently have visiting nurse or other home services: No Alcohol intake: never Comment: aware of trip hazard Patient Tobacco Use Status: Never used Tobacco Use of substances other than those prescribed or required for medical reasons: No Currently Displaying Signs/Symptoms of Drug Intoxication Withdrawal: No Have you been hit, kicked, punched, or otherwise hurt by someone within the past year? If so, by whom?: No Do you feel safe in your current relationship?: No Current Relationship Is there a partner from a previous relationship who is making you feel unsafe now?: No Are you made to feel afraid or neglected: No Are you DNR?: No Advance Directives: No Advance Directives Information Provided: Yes Advance Directives on File: No Do you have a plan to hurt others: No Plan Recently lost weight without trying: No How much weight loss: Not applicable Eating poorly because of decreased appetite: No Nutrition screen score: 0 Nutrition Risks: No Nutritional Risk Patient : No : No Poor oral hygiene: No service: No Current occupational status: employed 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 [employer] Sexual orientation: Straight/Heterosexual Gender identity: Female Meds Allergies Allergy/AdvReac Type Severity Reaction Status Date / Time No Known Allergies Allergy Verified 04/08/24 06:53 Home Medications ?Medication ?Instructions ?Recorded ?Confirmed ?Last Taken ?Type simvastatin 40 mg tablet 40 mg PO DAILY 05/02/21 04/08/24 04/07/24 History cholecalciferol (vitamin D3) 10 10 mcg PO DAILY 05/04/22 04/08/24 04/07/24 History mcg (400 unit) capsule Exam Height,Weight and Vital Signs: Height 5 ft 2 in Weight 84.822 kg Last Vital Signs Pulse 86 03/30/24 09:54 Resp 16 03/30/24 09:54 BP 169/79 H 03/30/24 09:54 Pulse Ox 96 03/30/24 09:54 O2 Del Method Room Air 03/30/24 09:54 Pertinent Lab Results Pertinent Lab Results: Lab Results 03/30/24 03/30/24 03/30/24 Range/Units 10:30 10:46 10:53 WBC 7.0 (4.8-10.8) X10*3/uL RBC 4.27 (4.20-5.50) X10*6/uL Hgb 13.4 (12.0-16.0) g/dl Hct 39.7 (37.0-47.0) % MCV 93.0 (80.0-98.0) fL MCH 31.4 (27.0-33.0) pg MCHC 33.8 (31.0-35.0) g/dl RDW 12.8 (11.0-16.0) % Plt Count 309 (160-400) X10*3/uL MPV 10.2 (9.4-12.3) fL Absolute Nucleated RBC 0.000 (0.0-0.012) X10*3/uL Nucleated RBC % (auto) 0.0 (0.0-0.2) /100WBC Sodium 141 (135-145) mmol/L Potassium 3.9 (3.3-5.1) mmol/L Chloride 105 (96-108) mmol/L Carbon Dioxide 28 (22-29) mmol/L Anion Gap 12 (12-20) BUN 16 (9-16) mg/dL Creatinine 0.74 (0.5-1.4) mg/dL Estim Creat Clear Calc 74.5 Estimated GFR > 60 Random Glucose 87 (60-115) mg/dL Calcium 9.9 D (8.4-10.2) mg/dL Nasal Screen MRSA (PCR) NEGATIVE (Negative) Nasal S. aureus Screen NEGATIVE (Negative) Nasal MRSA/S.aureus Interp SEE NOTE Blood Type O Positive Antibody Screen NEGATIVE Narrative Narrative: EKG 03/2024 Vent. Rate : 084 BPM Atrial Rate : 084 BPM P-R Int : 148 ms QRS Dur : 078 ms QT Int : 364 ms P-R-T Axes : 054 020 043 degrees QTc Int : 430 ms Sinus rhythm with occasional Premature ventricular complexes Otherwise normal ECG When compared with ECG of 31-MAY-2015 14:34, Premature ventricular complexes are now Present Premature atrial complexes are no longer Present Airway Mallampati Class: III TM Dist: >3cm Neck ROM: Full Loose/Missing/Broken Teeth: No (molars crowned) Heart: RRR Lungs: CTAB Assessment and Plan Assessment Anesthesia Assessment: Anesthesia Plan Discussed and PAT Visit Final Anesthetic Review Family History of Problems with Anesthesia: No History of Problems with Anesthesia: No
[2024-03-30 11:38] LABS: Hematocrit 39.7 % (37.0-47.0); Hemoglobin 13.4 g/dl (12.0-16.0); Mean Corpuscular HGB Conc 33.8 g/dl (31.0-35.0); Mean Corpuscular Hemoglobin 31.4 pg (27.0-33.0); Mean Platelet Volume 10.2 fL (9.4-12.3); Platelet Count 309 X10*3/uL (160-400); Red Blood Count 4.27 X10*6/uL (4.20-5.50); Red Cell Distribution Width 12.8 % (11.0-16.0)
[2024-03-30 11:53] LABS: MRSA Nasal PCR NEGATIVE (Negative); SA Nasal PCR NEGATIVE (Negative)
[2024-03-30 12:14] LABS: Anion Gap 12 (12-20); Blood Urea Nitrogen 16 mg/dL (9-16); Calcium 9.9 mg/dL (8.4-10.2); Carbon Dioxide 28 mmol/L (22-29); Chloride 105 mmol/L (96-108); Creatinine Clr Calc Pharmacy 74.5; Estimated Glomerular Filt Rate > 60; Glucose Random 87 mg/dL (60-115); Potassium 3.9 mmol/L (3.3-5.1); Sodium 141 mmol/L (135-145)
--- NOTE | 2024-03-30 13:37 | HP_ITS ---
DATE OF SERVICE: 04/08/2024 HISTORY OF PRESENT ILLNESS: Patient is a 68-year-old female, who was seen in the office today for preop evaluation prior to right total hip replacement scheduled with Dr. Stevenson on April 08. Other than the hip pain, patient states she feels well. PAST MEDICAL HISTORY: Significant for elevated cholesterol, fatty liver, dilated common bile duct, low vitamin D, positional vertigo, hay fever, arthritis of the hips. ALLERGIES: NO REPORTED ALLERGIES TO MEDICINES. REVIEW OF SYSTEMS: No fevers, chills, or sweats. No weight change. No headaches or dizziness. No chest pains or palpitations. No shortness of breath, coughing, or wheezing. No abdominal pain, heartburn, or nausea or vomiting. No urinary complaints. She has pain in both hips, right greater than left. Speech is normal. No memory changes. Sleep and appetite are normal. She does get seasonal allergies. No skin rashes. FAMILY HISTORY: Mother at 56 of an HI. Father at 79 from lung cancer. Three brothers, 1 . SOCIAL HISTORY: She is and has 4 children. PHYSICAL EXAMINATION: GENERAL: She is awake and alert, in no distress. VITAL SIGNS: Temperature is 97.8, pulse 100, respirations 12, blood pressure 132/82, oxygen is 98% on room air. Weight is 191, height is 5 feet 2 inches. HEENT: Clear. NECK: Supple. No lymph nodes, bruits, or masses. HEART: Sounds S1 and S2. Regular rate. LUNGS: Clear. ABDOMEN: Soft, nontender with positive bowel sounds. EXTREMITIES: No clubbing, cyanosis, or edema. 1+ pulses. NEUROLOGICAL: Nonfocal. Cranial nerves II through XII are intact. She does not smoke. ASSESSMENT AND PLAN: 1. Preop right total hip replacement. She is medically stable for the proposed procedure. Pending review of labs, echocardiogram to be done in 2 weeks, which she has preop assessment in good anesthesia. 2. Elevated cholesterol. She is on simvastatin. 3. Hay fever. She takes Flonase as needed. 4. Low vitamin D. She is on oral replacement. MD LILY Hoover/DIOL / [phone]
[2024-04-08] VITALS (11 sets, daily range): BP systolic 135–181; BP diastolic 67–84; PULSE 64–90; RESP 12–18; TEMP 36–36.6; O2SAT 92–98; BMI 34.0; BMI 34.6; BMI 35.4
--- NOTE | ~2024-04-08 | XR_ITS ---
EXAMINATION: XR PELVIS CLINICAL INFORMATION: Status post total hip replacement COMPARISON: Presurgical radiographs from 04/02/2024 TECHNIQUE: AP postsurgical radiograph of the pelvis FINDINGS: Patient is status post total hip replacement on the right with well positioned prosthesis and surgical nikunj over the soft tissues of the right hip. The rest of the pelvis and left hip are unremarkable. XR/XR pelvis 1-2V IMPRESSION: Well-positioned right hip prosthesis
--- NOTE | 2024-04-08 07:15 | HO.ANESPROP2 ---
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 (Acute) Encounter for annual routine gynecological examination (Acute) Past Medical History Medical History Osteoarthritis High cholesterol Functional capacity: independent ambulation Patient : No Family History Family History Maternal Aunt Breast CA Family history of problems with anesthesia: No Surgical History Surgical History Hx of colonoscopy History of delivery Hx of cholecystectomy History of nasal surgery History of breast surgery Tubal ligation status History of Problems with Anesthesia: No Social History Social History Household Members: Family Housing: House Are you a primary rn coronary care unit to a significant other at home: No Do you presently have visiting nurse or other home services: No Alcohol intake: never Comment: aware of trip hazard Patient Tobacco Use Status: Never used Tobacco Current occupational status: employed 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 [employer] Sexual orientation: Straight/Heterosexual Gender identity: Female Meds Allergies Allergy/AdvReac Type Severity Reaction Status Date / Time No Known Allergies Allergy Verified 04/08/24 06:53 Active Medications: Current Medications Lactated Ringer's (Lr) 1,000 mls @ 100 mls/hr IVCONT .Q10H MARY ELLEN Cefazolin Sodium/Dextrose (Ancef) 2 gm in 50 mls @ 100 mls/hr IV PREOP ONE Stop: 04/08/24 07:39 Home Medications ?Medication ?Instructions ?Recorded ?Confirmed ?Last Taken ?Type simvastatin 40 mg tablet 40 mg PO DAILY 05/02/21 04/08/24 04/07/24 History cholecalciferol (vitamin D3) 10 10 mcg PO DAILY 05/04/22 04/08/24 04/07/24 History mcg (400 unit) capsule Exam Height,Weight and Vital Signs: Height 5 ft 2 in Weight 84.368 kg Last Vital Signs Pulse 86 03/30/24 09:54 Resp 16 03/30/24 09:54 BP 169/79 H 07/15/24 09:54 Pulse Ox 96 03/30/24 09:54 O2 Del Method Room Air 03/30/24 09:54 Pertinent Lab Results Pertinent Lab Results: Laboratory Tests 03/30/24 03/30/24 03/30/24 10:30 10:46 10:53 WBC 7.0 RBC 4.27 Hgb 13.4 Hct 39.7 MCV 93.0 MCH 31.4 MCHC 33.8 RDW 12.8 Plt Count 309 MPV 10.2 Absolute Nucleated RBC 0.000 Nucleated RBC % (auto) 0.0 Sodium 141 Potassium 3.9 Chloride 105 Carbon Dioxide 28 Anion Gap 12 BUN 16 Creatinine 0.74 Estim Creat Clear Calc 74.5 Estimated GFR > 60 Random Glucose 87 Calcium 9.9 D Nasal Screen MRSA (PCR) NEGATIVE Nasal S. aureus Screen NEGATIVE Nasal MRSA/S.aureus Interp SEE NOTE Blood Type O Positive Antibody Screen NEGATIVE Airway Mallampati Class: II TM Dist: >3cm Neck ROM: Full Heart: RRR Lungs: CTA Assessment and Plan Assessment Anesthesia Assessment: Anesthesia Plan Discussed Final Anesthetic Review Family History of Problems with Anesthesia: No History of Problems with Anesthesia: No ASA Class: II Final Preanesthetic Review: Meds/Allgs Chart Reviewed, Consent Obtained/Reviewed and Anes Risks/Benef Reviewed Patient Risk: Low Procedure Risk: Intermediate Anesthetic Plan Anesthetic Plan: GA Disposition: Standard PACU
[2024-04-08] MEDS: Lactated Ringers 1,000 ML 100 ML IVCONT ×2 (07:21→12:10)
[2024-04-08] MEDS: oxyCODONE HCl ER 10 MG TAB.ER.12H PO ×2 (07:26→19:55)
--- NOTE | 2024-04-08 07:33 | MHC.SHP ---
Pre-Procedural Eval Section A - 24 Hr Update-Section A only Date of Service: 04/08/24 The patient is an INPATIENT: No Changes since office visit: No Cold of Flu in the past 2 weeks, No New Medical Problems, No Changes in Medication and No Patient answered all questions The patient has been examined within 24 hours of the surgical procedure. The History & Physical has been completed within 30 days and I have reviewed it.: Yes Section B - Complete if H&P > 30 days Chief Complaint: Unilateral primary osteoarthritis, right hip Allergies: Allergies Allergy/AdvReac Type Severity Reaction Status Date / Time No Known Allergies Allergy Verified 04/08/24 06:53 Plan I have reviewed the history and physical and performed a pertinent physical examination on my patient. No changes have occurred unless specified. Time Spent With Patient Time: Total time managing care of this patient today ____ minutes.
[2024-04-08 07:47] LABS: Hematocrit 37.7 % (37.0-47.0)
[2024-04-08 09:43] LABS: MRSA Nasal PCR NEGATIVE (Negative); SA Nasal PCR NEGATIVE (Negative)
--- NOTE | 2024-04-08 10:15 | PM.OP ---
Brief Operative Note Date of Service: 04/08/24 Pre-op diagnosis: Right hip OA Post-op diagnosis: same Procedure: Right PAOLA Implants: Stryle Trident 2 48/ 10 deg Accolade 2 #4 127/-4 32 ceramic Surgeon: Oliver Stevenson MD Anesthesia: GETA and local Was an Negative Notcher used for this Procedure?: No Negative Notcher: Misti Trinidad Estimated blood loss (mL): 200 IV fluids (mL): 1,000 Pathology: other Condition: stable Disposition: PACU Assessment and Plan (No Qualifiers) Assessment and Plan (1) Osteoarthritis of right hip: Status: Acute Plan: Lovenox of Eliquis given BMI
[2024-04-08 12:40] LABS: Estimated Glomerular Filt Rate > 60
--- NOTE | 2024-04-08 13:14 | PHA.MEDREC ---
Addendum entered by Wade Weiss RPh 04/08/24 15:09: reviewed by [facility] Original Note: Pharmacy Consult ? Medication Reconciliation Pharmacy has completed the medication reconciliation. Spoke to patient to confirm med list.
--- NOTE | 2024-04-08 13:56 | HO.PM.IMCN ---
History of Present Illness Data of Consult Service Date: 04/08/24 Requesting physician: Misti Trinidad Primary Care Provider: Rajesh Javed MD [facility] Reason for consult: medical management 68 year old female with history of hld admitted to orhto surgery for management of OA of the R hip s/p PAOLA with consult placed to hospitalist service for medical management. The patient has been slighlty hypertensive since intraoperatively and post operatively but has no known history of htn. She is reporting pain in the R hip. She otherwise has no complaints but very sleepy still. No nausea, vomiting, lightheadedness, h/a, sob, chest pain. She remains on 3L O2 but has no known history of chronic lung disease. Vitals otherwise stable. Review of Systems Review of Systems: Yes all other systems are reviewed and are negative [facility] Medical History Osteoarthritis High cholesterol Functional capacity: independent ambulation Family History Maternal Aunt Breast CA Surgical History Hx of colonoscopy History of delivery Hx of cholecystectomy History of nasal surgery History of breast surgery Tubal ligation status Social History Household Members: Family Housing: House Are you a primary gericare aide to a significant other at home: No Do you presently have visiting nurse or other home services: No Alcohol intake: never Comment: aware of trip hazard Patient Tobacco Use Status: Never used Tobacco Use of substances other than those prescribed or required for medical reasons: No Have you been hit, kicked, punched, or otherwise hurt by someone within the past year? If so, by whom?: No Do you feel safe in your current relationship?: No Current Relationship Is there a partner from a previous relationship who is making you feel unsafe now?: No Are you made to feel afraid or neglected: No Are you DNR?: No Advance Directives: No Advance Directives Information Provided: Yes Advance Directives on File: No Do you have a plan to hurt others: No Plan Recently lost weight without trying: No How much weight loss: Not applicable Eating poorly because of decreased appetite: No Nutrition screen score: 0 Nutrition Risks: No Nutritional Risk Patient : No : No Poor oral hygiene: No Current occupational status: employed 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 Sexual orientation: Straight/Heterosexual Gender identity: Female Meds Allergies Allergy/AdvReac Type Severity Reaction Status Date / Time No Known Allergies Allergy Verified 04/08/24 06:53 Active Medications: Current Medications Acetaminophen (Acetaminophen 325 Mg Tablet) 650 mg PO Q6H PRN PRN Reason: Pain, Mild (Pain Scale 1-3), fever or headache Atorvastatin Calcium (Atorvastatin Calcium 20 Mg Tablet) 20 mg PO DAILY [facility] Celecoxib (Celecoxib 200 Mg Capsule) 200 mg PO BID [facility] Docusate Sodium (Docusate Sodium 100 Mg Capsule) 100 mg PO BID [facility] Enoxaparin Sodium (Enoxaparin Sodium 40 Mg/0.4 Ml Syringe) 40 mg SUBCUT Q24H [facility] Hydromorphone HCl (Hydromorphone Hcl 0.5 Mg/0.5 Ml Syringe) 0.25 mg IVPUSH Q4H PRN; Protocol PRN Reason: Pain, Severe (Pain Scale 7-10) Lactated Ringer's (Lr) 1,000 mls @ 100 mls/hr IVCONT .Q10H [facility] Last Admin: 04/08/24 12:10 Dose: 100 mls/hr Cefazolin Sodium/Dextrose (Ancef) 2 gm in 50 mls @ 100 mls/hr IV POSTOP ONE Stop: 04/08/24 15:29 Oxycodone HCl (Oxycodone Hcl Immed Release 5 Mg Tablet) 5 mg PO Q4H PRN PRN Reason: Pain, Moderate(Pain Scale 4-6) Oxycodone HCl (Oxycodone Hcl Er 10 Mg Tab.Er.12h) 10 mg PO BID [facility] Sodium Chloride (0.9 % Sodium Chloride Flush 3 Ml Syringe) 3 ml IVFLUSH QSHIFT [facility] Vitamin D (Cholecalciferol (Vitamin D3) 10 Mcg Tablet) 10 mcg PO DAILY [facility] Home Medications ?Medication ?Instructions ?Recorded ?Confirmed ?Last Taken ?Type simvastatin 40 mg tablet 40 mg PO DAILY 05/02/21 04/08/24 04/07/24 History cholecalciferol (vitamin D3) 10 10 mcg PO DAILY 05/04/22 04/08/24 04/07/24 History mcg (400 unit) capsule Physical Exam Vital Signs and Narrative: Vital Signs: Last Vital Signs Temp 96.8 F 04/08/24 12:04 Pulse 84 04/08/24 12:04 Resp 16 04/08/24 12:04 BP 155/72 H 04/08/24 12:04 Pulse Ox 95 04/08/24 12:04 O2 Del Method Nasal Cannula 04/08/24 12:04 O2 Flow Rate 3 04/08/24 12:04 BMI result Body Mass Index 35.4 Constitutional - Awake and Alert, No apparent distress Eyes - PERRLA, EOMI Cardiovascular - S1S2, RRR, No edema Respiratory - Normal lung expansion, Normal respiratory effort, No respiratory distress, CTA bilaterally Gastrointestinal - NT / ND; +BS; No rebound or guarding Extremities - no calf tenderness bilaterally, no swelling Skin - Warm/Dry Neurological - Alert & oriented x3 Psychological - Appropriate affect Results Labs 04/08/24 07:35 04/08/24 12:15 Labs: Laboratory Results - last 24 hr 04/08/24 04/08/24 07:13 12:15 Estim Creat Clear Calc 74.0 Estimated GFR > 60 Nasal Screen MRSA (PCR) NEGATIVE Nasal S. aureus Screen NEGATIVE Nasal MRSA/S.aureus Interp SEE NOTE Assessment and Plan (1) Osteoarthritis of right hip: Qualifiers: Osteoarthritis type: primary Qualified Code(s): M16.11 - Unilateral primary osteoarthritis, right hip Status: Acute Plan 68 year old female with history of hld admitted to orhto surgery for management of OA of the R hip s/p PAOLA with consult placed to hospitalist service for medical management. #OA R Hip s/p PAOLA POD 0 -plan per ortho surgery -wean O2 as tolerated per protocol #?underlying EDWAR -wean O2 as tolerated, outpt sleep study #Elevated BP- intermittnet -no hx hypertension. Likely r/t pain -monitor bp #HLD -statin Thank you for allowing me to participate in this consult. Signing off at this time. Please do not hesitate to call for further questions or for any acute medical issues
[2024-04-08] MEDS: ceFAZolin Sodium/Dextrose,Iso 2 GM/50 ML PIGGYBACK IV (15:18)
[2024-04-08] MEDS: HYDROmorphone HCl 0.5 MG/0.5 ML SYRINGE 0.25 MG IVPUSH (17:02)
[2024-04-08] MEDS: ondansetron HCL 4 MG/2 ML VIAL IVPUSH (17:02)
--- NOTE | 2024-04-08 17:12 | P.DS_ITS ---
DS: Providers Provider Date of Service: 04/09/24 Date of admission: 04/08/24 07:34 Primary care physician: Rajesh Javed MD Consults: 04/08/24 11:47 Consult to Hospitalist Routine Comment: Consulting Provider: Hospitalist Reason For Exam: Routine medical management DS: Diagnosis Discharge Diagnosis (1) Osteoarthritis of right hip: Status: Acute DS: Summary Hospital Course Hospital Course: The patient underwent a successful right total hip arthroplasty, they were transferred to PACU and then to the floor to recover. During their stay, their vitals were stable, afebrile at 97.7. Labs were unremarkable, H/H 10.9/. POD 1 they were started on Lovenox bid for DVT ppx, they also received Physical Therapy services. Prior to discharge, their dressing was clean dry and intact, and the plan was to be discharged home with VNA services. Time Attestation Discharge Coordination Time (in mins): 30 Quality: Safe Use of Opioids Does Pt have an Active Cancer Diagnosis on the Problem List?: No Quality: Stroke Does the patient have a stroke diagnosis?: No Physical Exam Vital Signs: Vital Signs: Last Vital Signs Temp 97.9 F 04/08/24 15:38 Pulse 79 04/08/24 15:38 Resp 18 04/08/24 15:38 BP 144/73 H 04/08/24 15:38 Pulse Ox 97 04/08/24 15:38 O2 Del Method Room Air 04/08/24 15:38 O2 Flow Rate 3 04/08/24 12:04 BMI result Body Mass Index 35.4 Const: General: cooperative, healthy appearing and no acute distress Resp: Effort & Inspection: normal respiratory effort and able to speak in complete sentences Cardio: Rate: regular rate Peripheral pulses: Peripheral pulses 2+ throughout GI: Palpation (GI): Soft to palpation Skin: Lesions: no lesions Rashes: no rashes Extrem: Other: right hip dressing is c/d/i. Able to dorsi/plantar flex. Calf is supple and nontender. Sensation intact. Pedal pulse intact. DS: Data Data Completed and Pending Pending studies at discharge: Pending at discharge 04/08/24 09:02 Surgical [PTH] Routine Labs on day of discharge: Laboratory Results - last 24 hr 04/08/24 04/08/24 04/08/24 07:13 07:35 12:15 Hgb 13.0 Hct 37.7 Creatinine 0.76 Estim Creat Clear Calc 74.0 Estimated GFR > 60 Nasal Screen MRSA (PCR) NEGATIVE Nasal S. aureus Screen NEGATIVE Nasal MRSA/S.aureus Interp SEE NOTE Discharge Plan Discharge Anticipated Discharge Date/Time: 04/09/24 13:11 Patient Disposition: Home Health Service Discharge Diagnosis: s/p RTHA Referrals: Mike ELLIS [Outside] - 3-5 Days (Mike will call you to schedule home PT appointments) Misti Trinidad PA-C [Physician Business Project Analyst] - 04/23/24 1:15 pm Discharge Medications: New enoxaparin 40 mg/0.4 mL Syringe 40 mg subcut Q24H 42 Days Qty: 16.8 0RF acetaminophen 325 mg Tablet 650 mg PO Q6H PRN (Reason: Pain, Mild (Pain Scale 1-3), fever or headache) 30 Days Qty: 420 0RF celecoxib 200 mg Capsule 200 mg PO BID 30 Days Qty: 60 0RF docusate sodium 100 mg Capsule 100 mg PO BID 30 Days Qty: 60 0RF oxycodone 5 mg Tablet 5 mg PO Q4H PRN (Reason: Pain, Moderate(Pain Scale 4-6)) 7 Days Qty: 42 0RF Rx Instructions: Partial Fill upon patient request. Continued acetaminophen [Tylenol] 325 mg tablet 650 mg PO Q4H PRN (Reason: pain) Qty: 30 0RF simvastatin 40 mg tablet 40 mg PO DAILY cholecalciferol (vitamin D3) 10 mcg (400 unit) capsule 10 mcg PO DAILY Discharge Orders: Discharge Order (Routine); Ordered 04/09/24 Ordered By: Misti Trinidad Diet: Advance to usual diet Activity on Discharge: Use cane or walker Stand Alone Forms: Patient Portal Discharge page Print Language: Cameroonian Care Plan Goals: restore fxn to right hip Health Concerns: none Plan of Treatment: Physical Therapy for total hip arthroplasty: posterior precautions, gait training, ROM, strength Limit stair climbing No showering, no tub bath-keep dressing clean, dry and intact No driving x6 weeks Continue Lovenox x 6 weeks Follow up with [facility] in 2 weeks Assessment: stable for d/c
--- NOTE | 2024-04-08 17:14 | P.F2F_ITS ---
Service Date Service Date: 04/08/24 Encounter Date of encounter: 04/09/24 Reasons for Services Signs and symptoms assessed: s/p RTHA Pt. is considered homebound due to recent surgery. Unable to drive, poor balance, poor gait mechanics. Reason for senior living: administration of IV, SQ, or IM injection Reason for physical therapy: home safety and mobility, therapeutic exercises, restore joint function, gait/transfer training, assess need for DME and ADL training Reason for occupational therapy: home safety and mobility, therapeutic exercises, restore joint function, gait/transfer training, assess need for DME and ADL training Homebound: Leaving the home is medically contraindicated at this time without the asist of a device and/or another person due th the listed conditions above and below. Reason homebound: unsteady gait / fall risk, leg weakness, pain with ambulation, pain with transfers, poor balance / fall risk and unable to drive Certification: Based on the above findings, I certify that this patient is confined to the home and needs intermittent senior living care, physical therapy and/or speech therapy, or continues to need occupational therapy. The patient is under my care, and I have initiated the establishment of the plan of care. The patient will be followed by a physician who will periodically review the plan of care. Time Spent With Patient Time: Total time managing care of this patient today ____ minutes.
[2024-04-08] MEDS: Celecoxib 200 MG CAPSULE PO (19:55)
[2024-04-08] MEDS: oxyCODONE HCl Immed Release 5 MG TABLET PO (19:56)
[2024-04-08] MEDS: Docusate Sodium 100 MG CAPSULE PO (19:56)
[2024-04-08] MEDS: 0.9 % Sodium Chloride Flush 3 ML SYRINGE IVFLUSH (19:56)
[2024-04-08] MEDS: Prochlorperazine Edisylate 10 MG/2 ML VIAL 5 MG IVPUSH (20:45)
[2024-04-09 00:58] VITALS: BP 133/63; PULSE 93; RESP 18; TEMP 36.6; O2SAT 96
[2024-04-09] MEDS: Lactated Ringers 1,000 ML 100 ML IVCONT (01:05)
[2024-04-09] MEDS: oxyCODONE HCl Immed Release 5 MG TABLET PO ×3 (01:05→12:16)
[2024-04-09 02:46] VITALS: BP 133/70; PULSE 99; RESP 18; TEMP 36.6; O2SAT 93
[2024-04-09 04:25] VITALS: RESP 16
[2024-04-09 06:14] LABS: MANUAL DIFF FLAG NO
[2024-04-09 06:29] LABS: Basophils Percent Auto 0.2 % (0-2); Hematocrit 32.6 % (37.0-47.0); Hemoglobin 10.9 g/dl (12.0-16.0); Imm Gran Abs Auto 0.08 X10*3/uL (0.00-0.03); Imm Gran Pct Auto 0.5 % (0.0-0.4); Lymphocytes Absolute Auto 1.7 X10*3/uL (1.2-4.9); Lymphocytes Percent Auto 10.8 % (20-40); Mean Corpuscular HGB Conc 33.4 g/dl (31.0-35.0); Mean Corpuscular Hemoglobin 31.5 pg (27.0-33.0); Mean Corpuscular Volume 94.2 fL (80.0-98.0); Mean Platelet Volume 10.2 fL (9.4-12.3); Monocytes Absolute Auto 1.4 X10*3/uL (0.1-1.2); Monocytes Percent Auto 9.1 % (2-11); Neutrophils Absolute Auto 12.5 x10*3/uL (2.0-8.3); Neutrophils Percent Auto 79.4 % (45-73); Platelet Count 287 X10*3/uL (160-400); Red Blood Count 3.46 X10*6/uL (4.20-5.50); Red Cell Distribution Width 12.8 % (11.0-16.0); White Blood Count 15.8 X10*3/uL (4.8-10.8)
[2024-04-09 06:34] LABS: Anion Gap 14 (12-20); Blood Urea Nitrogen 12 mg/dL (9-16); Calcium 8.7 mg/dL (8.4-10.2); Carbon Dioxide 26 mmol/L (22-29); Chloride 105 mmol/L (96-108); Creatinine Clr Calc Pharmacy 74.9; Estimated Glomerular Filt Rate > 60; Glucose Fasting 118 mg/dL (60-99); Potassium 4.4 mmol/L (3.3-5.1); Sodium 141 mmol/L (135-145)
[2024-04-09] MEDS: ondansetron HCL 4 MG/2 ML VIAL IVPUSH (07:21)
[2024-04-09 07:28] VITALS: BP 136/62; PULSE 95; RESP 14; TEMP 36.5; O2SAT 95
[2024-04-09] MEDS: Docusate Sodium 100 MG CAPSULE PO (07:42)
[2024-04-09] MEDS: oxyCODONE HCl ER 10 MG TAB.ER.12H PO (07:42)
[2024-04-09] MEDS: Cholecalciferol (Vitamin D3) 10 MCG TABLET PO (07:42)
[2024-04-09] MEDS: Celecoxib 200 MG CAPSULE PO (07:42)
[2024-04-09] MEDS: Atorvastatin Calcium 20 MG TABLET PO (07:42)
[2024-04-09] MEDS: Enoxaparin Sodium 40 MG/0.4 ML SYRINGE SUBCUT (07:42)
[2024-04-09 08:02] VITALS: BP 136/62; PULSE 95; O2SAT 95
--- NOTE | 2024-04-09 08:34 | HO.POSTANES ---
Post Anesthesia Evaluation Post Anesthesia Evaluation Date of Service: 04/08/24 Vital Signs: Vital Signs Temp Pulse Resp BP Pulse Ox O2 Del Method 04/09/24 08:02 95 136/62 95 04/09/24 07:28 97.7 F 95 14 136/62 95 Room Air 04/09/24 04:25 16 04/09/24 02:46 97.9 F 99 18 133/70 93 Room Air 04/09/24 00:58 97.9 F 93 18 133/63 96 Room Air Anesthesia: General Mental Status: Awake Pain Control: Satisfactory Nausea/Vomiting: None Hydration: Adequate Anesthesia-Related Issues: No Anes. Related Issues
--- NOTE | 2024-04-09 09:43 | MHC.CM.PN ---
Addendum entered by Ashley Montes RN 04/09/24 10:42: Patient medically cleared for dc home w/ [facility] for PT/OT/SN. Family to transport. Original Note: IMM DELIVERED. PATIENT LIVES IN A HOME W/ ADULT SON & DTR. FUNCTIONALLY INDEPENDENT. DENIES USE OF DME OR SERVICES. PCP REUBEN TALAMANTES MD HCP COMPLETED W/ PATIENT. NAMED HCA'S: 1) SON NORMA AND 2) SON GILBERT. DP: HOME W/ [facility] FOR PT. SON TO TRANSPORT. CM WILL CONTINUE TO FOLLOW.
[2024-04-09 11:10] VITALS: BP 136/62; PULSE 95; O2SAT 95
--- NOTE | 2024-04-09 12:42 | PC.NURSE ---
Pt d/c home with son at ~1230. IV removed with catheter tip intact. Pt educated on administration of subQ lovenox, verbalized understanding and was able to return demonstration
--- NOTE | 2024-04-13 13:31 | P.OP_ITS ---
Operative Note Operative Note Date of Service: 04/08/24 Narrative: Date of Service: 04/08/24 Pre-op diagnosis: Right hip OA Post-op diagnosis: same Procedure: Right PAOLA Implants: Stryle Trident 2 48/ 10 deg Accolade 2 #4 127/-4 32 ceramic Surgeon: Oliver Stevenson MD Anesthesia: GETA and local Was an Behavior Management Specialist used for this Procedure?: No Behavior Management Specialist: Misti Trinidad Estimated blood loss (mL): 200 IV fluids (mL): 1,000 Pathology: other Condition: stable Disposition: PACU Patient was brought into the operating room and placed in the right lateral decubitus position. All bony prominences were well padded and the limb was prepped and draped in standard sterile fashion. A time-out was called to identify proper site procedure proper surgeon IV antibiotics and 1 g of tranexamic acid were administered. I began by making a curvilinear incision over the posterolateral aspect of the greater trochanter. Dissection was taken down to the tensor fascia which was incised in line with the incision and a Charnley retractor was placed. Cautery was used to maintain hemostasis. The hip was internally rotated and the external rotators were identified. The vessels were cauterized and a full-thickness capsular/external rotator layer was developed starting just proximal to the piriformis. This layer was tagged and a dull Hohmann retractor was placed underneath the neck in the hip was dislocated. A neck cut was made 1 cm proximal to the lesser trochanter and the head and neck were removed and measured 44-46mm on the back table. The head was deformed and eburnated. I then removed the labrum and cauterized the fovea. I started with a 44 reamer and medialized to the inner table. I sequentially reamed up to a size 48 and impacted a 48mm cup at 45 degrees of inclination and 25 degrees of version. I then placed a 10 deg posterior lipped liner and turned my attention to the femur. I identified the piriformis insertion and used this as a starting point for my elin cutter. The medius tendon was protected with a Hibs retractor. A Charnley awl was inserted in the canal and a curved curette used to remove the lateral bone. I irrigated copiously. I then sequentially broached in the patient's natural version to a size 4 and placed my trial implants. I used a #4/127/-4 ba sed on my pre-operative template. I removed all instrumentation and copiously irrigated. I placed my final femoral implant and again took the hip through range of motion and was satisfied with the stability and length. The final - 4implant was impacted in place and the hip reduced. I then irrigated copiously and placed 1 g of local tranexamic acid. I performed a capsular closure with 2.0 fiberwire, Leatha's fascia with 0 Vicryl, subcuticular with 2-0 Vicryl and the skin with nikunj. Patient was placed into a sterile dressing. Patient was extubated brought to the recovery room in stable condition. There were no known complications.
== END 2024-04-09 12:42 | disposition home health service (06) | DRG 470 ==
LOC: HO.SSSA 07:35 → HO.S3 11:29
PROVIDERS: Nurse Practitioner; Physician Assistant; Admitting Provider Orthopaedic Surgery; PCP Internal Medicine; Visit Provider Orthopaedic Surgery
PROC: 0SR903A Replacement of Right Hip Joint with Ceramic Synthetic Substitute, Uncemented, Open Approach (ICD-10-PCS; CPT 27130; principal; 2024-04-08 08:30)
DX: M16.11 Unilateral primary osteoarthritis, right hip (principal); G47.33 Obstructive sleep apnea (adult) (pediatric); E78.5 Hyperlipidemia, unspecified; Z79.899 Other long term (current) drug therapy
CPT/HCPCS: 36415; 72170; 80048; 82565; 85014; 85018; 85025; 85027; 86850; 86900; 86901; 87640; 87641; 88304; 88311; 93005; 97110; 97116; 97162; 97165; C1776; J0131; J0690; J0737; J1100; J1170; J1596; J1650; J2250; J2405; J2704; J2795; J3010; J7120

== ENCOUNTER → 2024-04-08 07:34 | Outpatient (BNV) | payer MEDICARE, SELFPAY | PROVIDERS: Admitting Provider Orthopaedic Surgery; PCP Internal Medicine; Visit Provider Physician Assistant | DX: M16.11 Unilateral primary osteoarthritis, right hip (principal) | CPT/HCPCS: 99222 ==

== ENCOUNTER → 2024-04-08 07:34 | Outpatient (BNV) | payer MEDICARE, SELFPAY | PROVIDERS: Admitting Provider Orthopaedic Surgery; PCP Internal Medicine; Visit Provider Orthopaedic Surgery | DX: M16.11 Unilateral primary osteoarthritis, right hip (principal) | CPT/HCPCS: 27130; 99024; G0180 ==

== ENCOUNTER 2024-04-23 13:02 | Outpatient (AMB) | payer MEDICARE, SELFPAY ==
--- NOTE | 2024-04-23 13:19 | MHC.OFFVIS ---
Intake Visit Reasons: 2WK PO: R PAOLA w/NE 04/08/24 Intake Note: Margot is a 68 year old female who presents today for a post op appointment s/p R PAOLA 04/08/24 NE. Patient reports she is doing well, having some discomfort. Allergies No Known Allergies Allergy (Verified 04/08/24 06:53) HPI HPI 2WK PO: R PAOLA w/NE 04/08/24: Details: 68-year-old female who presents in the office today 15 days status post right total hip arthroplasty, which was performed on 04/08/[address] Stevenson.? [facility] Medical History Osteoarthritis High cholesterol Surgical History Hx of colonoscopy History of delivery Hx of cholecystectomy History of nasal surgery History of breast surgery Tubal ligation status Family History Maternal Aunt Breast CA Social History Household Members: Family Housing: House Are you a primary healthcare corporate account director to a significant other at home: No Do you presently have visiting nurse or other home services: No 75 years or older and lives alone: No Alcohol intake: never Comment: aware of trip hazard Patient Tobacco Use Status: Never used Tobacco service: No Current occupational status: employed 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 [employer] Sexual orientation: Straight/Heterosexual Gender identity: Female Female Reproductive History Menstrual Age of Menarche: 12 Review of Systems Const All systems reviewed & are unremarkable except as noted in HPI and below Physical Exam Const General: cooperative, healthy appearing and no acute distress Resp Effort & Inspection: normal respiratory effort and able to speak in complete sentences Cardio Rate: regular rate Peripheral pulses: Peripheral pulses 2+ throughout GI Palpation (GI): Soft to palpation Skin Lesions: no lesions Rashes: no rashes Extrem Other: Right hip: Incision site is clean, dry, and intact. Angel are intact. No surrounding erythema or drainage. No signs of infections. Ambulating well. NVI.? Assessment & Plan Assessment & Plan (1) S/P total right hip arthroplasty: Onset Date: ~04/08/24 Comment: Dr. Oliver Stevenson Code(s): Z96.641 - Presence of right artificial hip joint Category: Surgical Plan Ms. Johnson is a 68-year-old female who presents in the office today 15 days status post right total hip arthroplasty, which was performed on 04/08/[address] Stevenson.? ? Angel were removed and steri-stripes were applied. The patient presents to the office today ambulating without any assisting devices. She discontinued the use of the cane yesterday, 04/22/24. She is currently attending outpatient physical therapy, which she will continue. The patient is not currently taking any narcotic medication. She has transitioned to Tylenol. Follow-up will be in four weeks with Dr. Stevenson, or sooner if needed. ? Patient Instructions: Scribed by Yojana Canchola biomedical electronics technician, for Misti Trinidad PA-C on 04/23/2024 at 1:34 pm, EST.? Coding Level of Care Code Global (69572) Diagnoses S/P total right hip arthroplasty Z96.641
== END 2024-04-23 13:38 | disposition home or self-care (01) ==
PROVIDERS: PCP Internal Medicine; Visit Provider Physician Assistant
DX: Z96.641 Presence of right artificial hip joint (principal)
CPT/HCPCS: 99024

== ENCOUNTER → 2024-04-23 13:02 | Outpatient (BNVA) | payer MEDICARE, SELFPAY | PROVIDERS: PCP Internal Medicine; Visit Provider Physician Assistant | DX: Z47.1 Aftercare following joint replacement surgery (principal); Z96.641 Presence of right artificial hip joint | CPT/HCPCS: 99212 ==

== ENCOUNTER 2024-05-07 08:19 | Outpatient (REF) | payer MEDICARE, SELFPAY ==
--- NOTE | ~2024-05-07 | MM_ITS ---
EXAMINATION: MM SCREENING DIGITAL BREAST TOMOSYNTHESIS, BILATERAL CLINICAL INFORMATION: Screening. Asymptomatic. COMPARISON: Mammography: This study is compared with prior exams dating back to 2018. TECHNIQUE: Digital breast tomosynthesis is performed in both the craniocaudal and mediolateral oblique views along with computer-aided detection (CAD). Synthesized 2D images are generated from the tomosynthesis. FINDINGS: There are scattered areas of fibroglandular density (ACR BI-RADS breast composition Category b). There are no significant masses, abnormal calcifications, or other abnormalities. There is a biopsy tissue marker in the medial aspect of the right breast. Scattered, bilateral calcifications are present in each breast. MM/MM tomosynthesis screening BI IMPRESSION: No mammographic evidence of malignancy. ASSESSMENT: BI-RADS BI-RADS 2 - Benign Findings RECOMMENDATION: Routine annual mammography screening. 1 year F/U This examination should not preclude the clinical evaluation of a suspicious palpable abnormality. This patient's information was entered into a reminder system with a target due date for their next mammogram. Electronically signed by: Mariah Meza MD 05/13/2024 04:43 PM EDT
== END 2024-05-07 08:20 | disposition home or self-care (01) ==
LOC: HO.MAMMO 08:19
PROVIDERS: PCP Internal Medicine; Visit Provider Internal Medicine
DX: Z12.31 Encounter for screening mammogram for malignant neoplasm of breast (principal)
CPT/HCPCS: 77063; 77067

== ENCOUNTER → 2024-05-07 08:45 | Outpatient (BNV) | payer MEDICARE, SELFPAY | PROVIDERS: PCP Internal Medicine; Visit Provider Radiology Diagnostic Radiology | DX: Z12.31 Encounter for screening mammogram for malignant neoplasm of breast (principal) | CPT/HCPCS: 77063; 77067 ==

== ENCOUNTER 2024-05-14 10:06 | Outpatient (AMB) | payer MEDICARE, SELFPAY ==
--- NOTE | 2024-05-14 10:28 | A.OFFVIS_ITS ---
Vital Signs 05/14/24 10:29 Height 5 ft 2 in Intake Visit Reasons: 6WK PO: R PAOLA w/NE 04/08/24 Intake Note: Margot is a 68 year old female who presents today for a post operative appointment s/p Right PAOLA 04/08/24. Patient reports that she is doing great with no complaints. Allergies No Known Allergies Allergy (Verified 04/08/24 06:53) HPI HPI 6WK PO: R PAOLA w/NE 04/08/24: Details: Margot is a 68 year old female who presents today for a post operative appointment s/p Right PAOLA 04/08/24. Patient reports that she is doing great with no complaints. PFSH Medical History Osteoarthritis High cholesterol Surgical History Hx of colonoscopy History of delivery Hx of cholecystectomy History of nasal surgery History of breast surgery Tubal ligation status Family History Maternal Aunt Breast CA Social History Household Members: Family Housing: House Are you a primary intensive care ambulance paramedic to a significant other at home: No Do you presently have visiting nurse or other home services: No 75 years or older and lives alone: No Alcohol intake: never Comment: aware of trip hazard Patient Tobacco Use Status: Never used Tobacco service: No Current occupational status: employed 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 Oliver Stevenson Code(s): Z96.641 - Presence of right artificial hip joint Category: Surgical Plan: And is 6 weeks status post right hip arthroplasty doing well. I reviewed some exercises for hip stabilization. Follow up 6 weeks. Coding Level of Care Code Global (20696) Diagnoses S/P total right hip arthroplasty Z96.641
== END 2024-05-14 10:38 | disposition home or self-care (01) ==
PROVIDERS: PCP Internal Medicine; Visit Provider Orthopaedic Surgery
DX: Z96.641 Presence of right artificial hip joint (principal)
CPT/HCPCS: 99024

== ENCOUNTER → 2024-05-14 10:06 | Outpatient (BNVA) | payer MEDICARE, SELFPAY | PROVIDERS: PCP Internal Medicine; Visit Provider Orthopaedic Surgery | DX: Z96.641 Presence of right artificial hip joint (principal) | CPT/HCPCS: 99212 ==

== ENCOUNTER 2024-05-28 11:07 | Outpatient (AMB) | payer MEDICARE, SELFPAY ==
--- NOTE | 2024-05-28 11:07 | AM.OFFWIN_ITS ---
Intake Vital Signs 05/28/24 11:09 Height 5 ft 2 in Weight 188 lb BMI 34.4 BP 128/84 Blood Pressure Location Lt brachial Position Sitting Pulse 94 Pulse Source Pulse Oximeter Temp 98.4 F Temp Source Oral Pulse Oximetry (%) 97 Oxygen Delivery Method Room Air Intake Visit Reasons: EP-Dizziness/rt ear fluid Intake Note: pt c/o dizziness since Saturday evening and fluid in RT ear. Started 1 week ago Patient Tobacco Use Status: Never used Tobacco Allergies No Known Allergies Allergy (Verified 05/28/24 11:08) Do you need a note to return to daycare/school/sports/work: No HPI HPI Comments History of Present Illness Details 68 y/o female patient who presents to [facility] walk in clinic with c/o feeling dizziness since Sat. She also c/o fluid in both ears since 1 week ago. She has tried OTC Meclizine 12.5 mg with no relief. PFSH Medical History Osteoarthritis High cholesterol Surgical History Hx of colonoscopy History of delivery Hx of cholecystectomy History of nasal surgery History of breast surgery Tubal ligation status Family History Maternal Aunt Breast CA Social History Household Members: Family Housing: House Are you a primary patient care to a significant other at home: No Do you presently have visiting nurse or other home services: No 75 years or older and lives alone: No Alcohol intake: never Comment: aware of trip hazard Patient Tobacco Use Status: Never used Tobacco service: No Current occupational status: employed 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 [employer] Sexual orientation: Straight/Heterosexual Gender identity: Female Female Reproductive History Menstrual Age of Menarche: 12 Physical Exam Vital Signs: Last Vital Signs Temp 98.4 F 05/28/24 11:09 Pulse 94 05/28/24 11:09 BP 128/84 05/28/24 11:09 Pulse Ox 97 05/28/24 11:09 Oxygen Delivery Method Room Air 05/28/24 11:09 BMI result Body Mass Index 34.4 Const General: no acute distress Nutritional Appearance: obese Orientation/consciousness: patient oriented x3 HEENT Head: Yes normocephalic Ears: external ears normal and TM abnormal with fluid behind the TM bilateral General nose exam: Abnormal mucous membranes and turbinates present boggy and erythematous Face and sinus: Yes sinuses nontender Mouth: moist mucous membranes Throat: Yes postnasal drainage Resp Effort & Inspection: normal respiratory effort and able to speak in complete sentences Auscultation: clear to auscultation bilaterally, no crackles, no rales, no rhonchi and no wheezes Neuro General: patient oriented x3 Assessment & Plan Assessment & Plan (1) Dizziness: Code(s): R42 - Dizziness and giddiness Plan: Ordered Meclizine 25 mg BID Zrytec BID Rest F/U with PCP if problem not resolved. Medications: New meclizine 25 mg PO BID PRN 30 tabs 0RF dizziness R42 - Dizziness and giddiness cetirizine (Zyrtec) 10 mg PO DAILY PRN 30 tabs 0RF allergy symptoms R42 - Dizziness and giddiness Coding Level of Care Code Est Pt Level 3 (68716) Diagnoses Dizziness R42 Time Spent (min) 15
[2024-05-28 11:09] VITALS: BP 128/84; PULSE 94; TEMP 36.9; O2SAT 97; BMI 34.4
== END 2024-05-28 11:50 | disposition home or self-care (01) ==
PROVIDERS: PCP Internal Medicine; Visit Provider Nurse Practitioner Family
DX: R42 Dizziness and giddiness (principal)
CPT/HCPCS: 99213

== ENCOUNTER 2024-06-25 10:04 | Outpatient (AMB) | payer MEDICARE, SELFPAY ==
--- NOTE | 2024-06-25 10:05 | MHC.OFFVIS ---
Vital Signs 06/25/24 10:06 Height 5 ft 2 in Weight 188 lb BMI 34.4 Intake Visit Reasons: PO - R PAOLA w/NE 04/08/24 Intake Note: Margot is a 68 year old female who presents today for a post operative appointment s/p Right PAOLA 04/08/24. Patient reports that she is doing well with no concerns, she has her last PT visit tomorrow. Allergies No Known Allergies Allergy (Verified 05/28/24 11:08) HPI HPI PO - R PAOLA w/NE 04/08/24: Details: Margot is a 68 year old female who presents today for a post operative appointment s/p Right PAOLA 04/08/24. Patient reports that she is doing well with no concerns, she has her last PT visit tomorrow. PFSH Medical History Osteoarthritis High cholesterol Surgical History Hx of colonoscopy History of delivery Hx of cholecystectomy History of nasal surgery History of breast surgery Tubal ligation status Family History Maternal Aunt Breast CA Social History Household Members: Family Housing: House Are you a primary medicare interviewer to a significant other at home: No Do you presently have visiting nurse or other home services: No 75 years or older and lives alone: No Alcohol intake: never Comment: aware of trip hazard Patient Tobacco Use Status: Never used Tobacco service: No Current occupational status: employed 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 Oliver Stevenson Code(s): Z96.641 - Presence of right artificial hip joint Category: Surgical Plan: Doing well s/p hip arthroplasty dental antibiotic prophylaxis discussed f/u 9 mo or as needed Coding Level of Care Code Global (67941) Diagnoses S/P total right hip arthroplasty Z96.641
[2024-06-25 10:06] VITALS: BMI 34.4
== END 2024-06-25 10:38 | disposition home or self-care (01) ==
PROVIDERS: PCP Internal Medicine; Visit Provider Orthopaedic Surgery
DX: Z96.641 Presence of right artificial hip joint (principal)
CPT/HCPCS: 99024

== ENCOUNTER → 2024-06-25 10:04 | Outpatient (BNVA) | payer MEDICARE, SELFPAY | PROVIDERS: PCP Internal Medicine; Visit Provider Orthopaedic Surgery | DX: Z47.1 Aftercare following joint replacement surgery (principal); Z96.641 Presence of right artificial hip joint | CPT/HCPCS: 99212 ==

== ENCOUNTER 2024-06-26 10:00 | Outpatient (RCR) | payer MEDICARE, SELFPAY ==
--- NOTE | 2024-04-22 15:20 | MHC.PT.EP ---
[facility] [place] Office [place] [facility] [place] Office [address] Freddy Major [address] [phone] F: [phone] F: [phone] F: [phone] F: [phone] Physical Therapy Plan of Care Date of Evaluation: 04/22/24 Date of Surgery: Diagnosis: This is a 68 yo female presenting to skilled PT with a script for R THR. Assessment: This is a 68 yo female presenting to skilled PT with a script for R THR. Patient underwent her R THR on 04/08/[address] Stevenson. She had no post op complications and went home the day after. She home care until last (about 3 visits). She has been doing her HEP faithfully, walking her cul-de-sac with her cane. She gets very mild pain when she moves incorrectly but otherwise does not report much. Pain is over the incision when felt. She still has her nikunj in and returns to ortho tomorrow to get them removed. She uses ice and tylenol for pain relief. Assessment reveals pain that ranges from up to a 3/10 at the worst. Patient demos decreased R hip ROM, strength of R hip, TTP at incision and ITB and impaired posture with forward head and rounded shoulders. Based on functional limitations, impaired QOL and pain tolerance patient is a good candidate for skilled PT 2x/wk for 4wks. Frequency and Duration: The patient will be seen 2x/wk for 4wks Short Term Goals: Pt will demonstrate improved postural awareness and understanding of core engagement with supine and standing tasks without cues throughout session to improve overall back safety in 2 weeks. Pt will demo proper quad and glut set in various positions in 2 weeks Pt will continue to reinforce precautions, sitting, standing and ADL modifications with proper body mechanics in 2 wks. Penitentiary Goals: Pt will demonstrate improved outcome measure by 5 points in 4 weeks for improved functional mobility. Pt will demonstrate at least 5/5 hip strength in 4 weeks. Pt will return to work in full when medically cleared by MD Pt will demo proper gait pattern without AD, no evidence of LOB and normal gait on stairs in 4 wks. Treatment Plan: Modalities to reduce pain, spasms and effusion. Manual therapy to restore motion and function. Therapeutic exercise to improve strength and flexibility. Neuromuscular re-education for posture and balance. Therapeutic activities to return to functional activities of daily living. Electronically signed by: Danika Grullon PT Please sign and return to therapist. Thank you for your referral.
--- NOTE | 2024-07-28 08:53 | MHC.PT.DC ---
[facility] [place] Office [place] Office [place] Office [address] [phone] F: [phone] F: [phone] F: [phone] F: [phone] Physical Therapy Discharge Report Diagnosis: This is a 68 yo female presenting to skilled PT with a script for R THR. Date of Surgery: Date of Evaluation: 04/22/24 Date of Discharge: Treatments to Date: 10 Cancellations to Date: 0 No Shows to Date: 0 Discharge Status: Achieved Goals Improved Function Independent with HEP Patient Elected to Stop Discharge Summary: 06/26: Patient came to 10 visits of PT, she I in her HEP, improved her symptoms, ROM, strength and gait. She has returned function, returned to work and is I in ADLs. She has a good HEP to continue on her own. She has seen ortho and is cleared for DC. DC to HEP. Electronically signed by: Danika Grullon, PT Please sign and return to therapist. Thank you for your referral.
== END 2024-07-28 08:54 | disposition home or self-care (01) ==
LOC: HO.PTCHIC 10:00
PROVIDERS: PCP Internal Medicine; Visit Provider Physician Assistant
DX: Z47.1 Aftercare following joint replacement surgery (principal); Z96.641 Presence of right artificial hip joint
CPT/HCPCS: 97110; 97112; 97162

== ENCOUNTER 2024-07-23 10:01 | Outpatient (AMB) | payer MEDICARE, SELFPAY ==
--- NOTE | 2024-07-23 10:03 | MHC.OFFVIS ---
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 She is doing well with no concerns. Attempting to eat a healthy diet with calcium and vitamin D and stays active with exercise right hip replacement this year has done PT and now exercises regularly. Currently not sexually active. Denies any vaginal dryness or irritation. STI testing offered; she declined. Last pap smear; 2020. Last mammogram; 2023. Colonoscopy is UTD. Denies any family history of ovarian or colon cancer. breast cancer-[facility] Medical History Osteoarthritis of right hip Osteoarthritis High cholesterol Surgical History History of right hip replacement Hx of colonoscopy History of delivery Hx of cholecystectomy History of nasal surgery History of breast surgery Tubal ligation status Family History Maternal Aunt Breast CA Social History Household Members: Family Housing: House Are you a primary manager urgent care to a significant other at home: No Do you presently have visiting nurse or other home services: No 75 years or older and lives alone: No Alcohol intake: never Comment: aware of trip hazard Patient Tobacco Use Status: Never used Tobacco service: No Current occupational status: employed 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 [employer] Sexual orientation: Straight/Heterosexual Gender identity: Female Female Reproductive History Menstrual Age of Menarche: 12 Total pregnancies: 4 Full term: 4 Date of last pap smear: 05/02/21 (negative pap smear, negative hpv) Date of Mammogram: 05/07/24 (bi-rad 2) Review of Systems Const All systems reviewed & are unremarkable except as noted in HPI and below Reports as per HPI Eyes Reports no additional complaints ENT Reports no additional complaints Card Reports no additional complaints Resp Reports no additional complaints GI Reports as per HPI and Reports no additional complaints Reports as per HPI Musc Reports no additional complaints Skin/Breast Reports as per HPI Neuro Reports no additional complaints Psych Reports no additional complaints Endo Reports no additional complaints Cristian/Lymph Reports no additional complaints Aller/Immun Reports no additional complaints Physical Exam Vital Signs: Last Vital Signs BP 128/78 07/23/24 10:09 BMI result Body Mass Index 34.7 Const General: cooperative, healthy appearing, no acute distress, well developed and alert Orientation/consciousness: patient oriented x3 HEENT Head: Yes normal to inspection Eyes General: appearance normal, both eyes and all related structures Neck Neck: Yes normal visual inspection Thyroid: Thyroid normal Chest Chest palpation & inspection: normal inspection of the chest and other (no puckering, dimpling, peau de orange, retraction, discharge, masses) Breast/axilla inspection: normal inspection of the breasts Breast/axilla palpation: normal palpation of the breasts Resp Effort & Inspection: normal respiratory effort GI Inspection: Yes normal to inspection Palpation (GI): Soft to palpation Rectal Exam - Female: deferred General: Yes bladder normal to palpation External Female Exam: normal external appearance and normal appearance of the urethra Speculum Exam - Vagina: normal appearance of the vagina, normal palpation, normal vaginal discharge and vagina atrophic Speculum Exam - Cervix: normal appearance of the cervix and normal palpation Bimanual exam- vagina & uterus: normal bimanual exam, normal palpation, uterine size normal, bladder normal to palpation, normal palpation and non-tender Bimanual Exam- Adnexa, other: no masses Skin General skin exam: no rashes or lesions noted Rashes: no rashes Neuro General: patient oriented x3 Cognition (Neuro): normal cognition Extrem General: Yes normal to inspection Psych Attitude: cooperative Thought process: Normal thought process present Assessment & Plan Assessment & Plan (1) Encounter for annual routine gynecological examination: Code(s): Z01.419 - Encounter for gynecological examination (general) (routine) without abnormal findings Category: Medical Plan Discussed: Current recommendations for pap smears per ASCCP guidelines. Breast awareness, periodic self breast exams and yearly mammogram. Maintain a healthy lifestyle, well balanced diet including Calcium 1,200 mg and Vitamin D 600 IU daily, and routine exercise. Contact the office with any postmenopausal bleeding. Patient verbalizes understanding and agrees to the plan of care. She was given opportunity to ask questions and all questions were answered to the best of my ability. RTO in 1 year for annual grinder set up operator external exam. This note is constructed using voice recognition software. While every effort has been made to ensure accuracy, staff analyst errors may have been included. Coding Level of Care Code Est Pt Prev Care >65y(74717) Diagnoses Encounter for annual routine gynecological examination Z01.419
[2024-07-23 10:09] VITALS: BP 128/78; BMI 34.7
== END 2024-07-23 10:53 | disposition home or self-care (01) ==
LOC: HO.HWS 10:02
PROVIDERS: PCP Internal Medicine; Visit Provider Advanced Practice Midwife
DX: Z01.419 Encounter for gynecological examination (general) (routine) without abnormal findings (principal)
CPT/HCPCS: 99397

== ENCOUNTER → 2024-07-23 10:01 | Outpatient (BNVA) | payer MEDICARE, SELFPAY | PROVIDERS: PCP Internal Medicine; Visit Provider Advanced Practice Midwife | DX: Z01.419 Encounter for gynecological examination (general) (routine) without abnormal findings (principal) | CPT/HCPCS: 99397 ==

== ENCOUNTER 2024-11-17 09:48 | Outpatient (AMB) | payer MEDICARE, SELFPAY ==
--- NOTE | 2024-11-17 09:50 | MHC.OFFVIS ---
Vital Signs 11/17/24 09:51 Height 5 ft 2 in Weight 190 lb BMI 34.7 BP 128/88 Intake Visit Reasons: Breast lump Intake Note: Left breast near nipple, hx LCIS of right breast Allergies No Known Allergies Allergy (Verified 11/17/24 09:54) HPI Comments Details: Patient is here today with concerns a left breast lump behind the nipple, non tender, smaller than a pea, found a month ago on self breast exam. No nipple discharge, unsure if she had a biopsy marker on the same breast, no injury to the area. History of breast cancer 2011 of right breast. Last mammogram 05/05/2024. [facility] Medical History (Updated 11/17/24 @ 10:14 by Leia Linton CNM) Lump of breast, left Lobular carcinoma in situ (LCIS) of right breast Osteoarthritis of right hip Osteoarthritis High cholesterol Surgical History History of right hip replacement Hx of colonoscopy History of delivery Hx of cholecystectomy History of nasal surgery History of breast surgery Tubal ligation status Family History Maternal Aunt Breast CA Social History Household Members: Family Housing: House Are you a primary career services director to a significant other at home: No Do you presently have visiting nurse or other home services: No 75 years or older and lives alone: No Alcohol intake: never Comment: aware of trip hazard Patient Tobacco Use Status: Never used Tobacco service: No Current occupational status: employed 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 Chest palpation & inspection: normal inspection of the chest Breast/axilla inspection: normal inspection of the breasts (Right breast slightly smaller, postsurgical scarring) and normal inspection of the axillae Breast/axilla palpation: normal palpation of the breasts Skin General skin exam: no rashes or lesions noted Assessment & Plan Assessment & Plan (1) Lump of breast, left: Code(s): N63.20 - Unspecified lump in the left breast, unspecified quadrant Category: Medical Qualifiers: Breast mass location: unspecified quadrant Qualified Code(s): N63.20 - Unspecified lump in the left breast, unspecified quadrant Plan Discussed: Workup for breast lump to include ultrasound and diagnostic mammogram. Follow up pending results. The patient expressed understanding and agreement with the plan of care. All of her questions and concerns were addressed to the best of my ability. This note is constructed using voice recognition software. While every effort has been made to ensure accuracy, horseback riding instructor errors may have been included. Orders: Orders US breast LT complete Today N63.20 - Unspecified lump in the left breast, unspecified quadrant MM tomosynthesis diagnostic BI Today Z12.31 - Encounter for screening mammogram for malignant neoplasm of breast Coding Level of Care Code Est Pt Level 3 (52871) Diagnoses Mass of left breast, unspecified quadrant N63.20 Breast mass location: unspecified quadrant
[2024-11-17 09:51] VITALS: BP 128/88; BMI 34.7
== END 2024-11-17 10:27 | disposition home or self-care (01) ==
LOC: HO.HWS 09:48
PROVIDERS: PCP Internal Medicine; Visit Provider Advanced Practice Midwife
DX: N63.20 Unspecified lump in the left breast, unspecified quadrant (principal)
CPT/HCPCS: 99213

== ENCOUNTER → 2024-11-17 09:48 | Outpatient (BNVA) | payer MEDICARE, SELFPAY | PROVIDERS: PCP Internal Medicine; Visit Provider Advanced Practice Midwife | DX: N63.20 Unspecified lump in the left breast, unspecified quadrant (principal) | CPT/HCPCS: 99212 ==

== ENCOUNTER 2024-11-22 09:06 | Emergency (ER) | payer MEDICARE, SELFPAY ==
--- NOTE | ~2024-11-22 | CT_ITS ---
CLINICAL HISTORY: R flank pain, TTP CT abdomen and pelvis without contrast Comparison: CT/REG/SR - CT ABDOMEN PELVIS W CON - 11/27/21 14:32 EDT Findings: No consolidation or effusion. Small hiatal hernia. The gallbladder is surgically absent. The liver, spleen, adrenal glands and pancreas are unremarkable. The kidneys, ureters and bladder are within normal limits Normal appendix. Mild fecal retention. Diverticulosis without evidence of diverticulitis. Diffuse atherosclerotic disease. Degenerative changes seen within the lower lumbar spine. Impression: No definite acute process. Fecal retention. Diverticulosis This document has been electronically signed by: Chaparro Rueda MD on 11/22/2024 11:40:35
[2024-11-22 09:16] VITALS: BP 179/94; PULSE 84; RESP 18; TEMP 36.7; O2SAT 96; BMI 34.6
[2024-11-22 09:43] LABS: MANUAL DIFF FLAG NO
--- NOTE | 2024-11-22 09:46 | ED.ABDPAIN ---
HPI - Abdominal Pain General Chief Complaint: Abdominal Pain Stated Complaint: side pain Time Seen by Provider: 11/22/24 09:32 Source: patient Mode of arrival: ambulatory Limitations: no limitations History of Present Illness ED Provider: Petty Ramirez NP HPI narrative: Patient is a 61-year-old female who presents emergency department for evaluation of right mid lateral abdominal pain radiating to the right flank. Onset was 2 nights ago, the pain did let up some and she was able to sleep. She reports pain was minimal yesterday. Last night she was only able to sleep for 1 hour due to the severity of the pain was constant in nature with a varying intensity, exacerbated when she was lying down flat on that side. She denies any precipitating injury that may have brought this on. Denies any history of similar pain past. Denies fevers, chills, chest pain, nausea, vomiting, hematemesis, diarrhea, constipation, hematochezia, melena, dysuria, urinary frequency, urinary urgency, urinary hesitancy, hematuria. Related Data Home Medications ?Medication ?Instructions ?Recorded ?Confirmed simvastatin 40 mg tablet 40 mg PO DAILY 05/02/21 04/08/24 cholecalciferol (vitamin D3) 10 10 mcg PO DAILY 05/04/22 04/08/24 mcg (400 unit) capsule Previous Rx's ?Medication ?Instructions ?Recorded cetirizine 10 mg tablet (Zyrtec) 10 mg PO DAILY PRN allergy 05/28/24 symptoms #30 tabs meclizine 25 mg tablet 25 mg PO BID PRN dizziness #30 tabs 05/28/24 polyethylene glycol 3350 17 17 g PO BID #119 grams 11/22/24 gram/dose oral powder (Miralax) Allergies Allergy/AdvReac Type Severity Reaction Status Date / Time No Known Allergies Allergy Verified 11/22/24 09:19 Review of Systems Review of Systems Yes all other systems are reviewed and are negative PMFSH Past Medical History Attestation statement: The following information was validated with the patient. Source: old records reviewed Medical History Lump of breast, left Lobular carcinoma in situ (LCIS) of right breast Osteoarthritis of right hip Osteoarthritis High cholesterol Surgical History History of right hip replacement Hx of colonoscopy History of delivery Hx of cholecystectomy History of nasal surgery History of breast surgery Tubal ligation status Family History Family History Maternal Aunt Breast CA Social History Social History Household Members: Family Housing: House Are you a primary childcare provider to a significant other at home: No Do you presently have visiting nurse or other home services: No Alcohol intake: never Comment: aware of trip hazard Patient Tobacco Use Status: Never used Tobacco Smoked in Last 30 Days: No Use of substances other than those prescribed or required for medical reasons: No Advance Directives: No Advance Directives Information Provided: Yes Do you have a plan to hurt others: No Plan service: No Current occupational status: employed 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 No acute distress.?Normal affect.?? Neck: Normal inspection.? Neck supple.?? CVS: Heart sounds normal. Normal heart rate and rhythm.? Pulses normal.?? Respiratory: No respiratory distress.? Lung sounds clear to auscultation bilaterally?? Abdomen: Soft and non-tender. No rebound tenderness at McBurney's point. Negative psoas sign. Negative Rovsing sign. Negative Rosales sign. Mild positive right CVAT. Tenderness upon palpation to right lateral ABD pain mid axillary line. Normoactive bowel sounds. ? Skin: Skin warm and dry.? Normal skin color.? Extremities: No lower extremity edema.? Neuro: Moves all extremities spontaneously. Sensation intact bilaterally. Ambulates with normal steady gait. Course Reevaluation(s) Reevaluation #1: CBC is without leukocytosis anemia or thrombocytopenia. No electrolyte derangement. No JAMAR. LFTs and lipase unremarkable. Urinalysis with 1+ leukocyte esterase, 21-50 urine WBCs presence of squamous epithelial cells in addition to 3+ urine bacteria, concerning for UTI versus urogenital contamination. She denies any urinary symptoms. Medical Decision Making Medical Decision Making [facility] Narrative: Patient is a 69-year-old female past medical history of LCIS of right breast, hypercholesterolemia, osteoarthritis who presents emergency department for evaluation of 3 days with right lateral ABD/right flank pain as per HPI. Since last night constant in nature with varying intensity exacerbated while lying supine or on the right side as per HPI. No anterior abdominal examination is benign, has mild right CVA tenderness. She is without signs of systemic toxicity found to be afebrile without tachycardia no hypotension. No associated chest pain shortness of breath or URI symptoms to suggest pneumonia, no clinical evidence of DVT or personal history of VTE/ malignancy to suggest pulmonary embolism. Wells low risk. No high-risk past medical history to suggest myocardial infarction and is without chest pain, less likely AAA, aortic dissection. No abdominal tenderness upon palpation, she is s/p cholecystectomy, lower suspicion for CBD stone. No rebound tenderness at McBurney's point, rigidity, guarding to suggest acute appendicitis. Differential Diagnosis Differential Diagnoses: The differential diagnosis associated with the presentation includes (See narrative above) Admission/Observation Consideration of admission/observation: Escalation of care including admission/observation considered (See narrative above ) Lab Data MDM Lab Attestation statement: I reviewed the patient's lab results. 11/22/24 09:37 11/22/24 09:37 Labs: Lab Results 11/22/24 Range/Units 09:37 WBC 7.4 (4.8-10.8) X10*3/uL RBC 4.57 D (4.20-5.50) X10*6/uL Hgb 14.3 D (12.0-16.0) g/dl Hct 41.4 D (37.0-47.0) % MCV 90.6 (80.0-98.0) fL MCH 31.3 (27.0-33.0) pg MCHC 34.5 (31.0-35.0) g/dl RDW 13.3 (11.0-16.0) % Plt Count 341 (160-400) X10*3/uL MPV 9.6 (9.4-12.3) fL Immature Gran % (Auto) 0.3 (0.0-0.4) % Neut % (Auto) 58.3 (45-73) % Lymph % (Auto) 33.7 (20-40) % [place] % (Auto) 5.7 (2-11) % Eos % (Auto) 1.3 (0-4) % Baso % (Auto) 0.7 (0-2) % Lymph # (Auto) 2.5 (1.2-4.9) X10*3/uL [place] # (Auto) 0.4 (0.1-1.2) X10*3/uL Eos # (Auto) 0.1 (0.0-0.4) X10*3/uL Baso # (Auto) 0.1 (0.0-0.2) X10*3/uL Abs Immat Gran (auto) 0.02 (0.00-0.03) X10*3/uL Absolute Neuts (auto) 4.3 (2.0-8.3) x10*3/uL Absolute Nucleated RBC 0.000 (0.0-0.012) X10*3/uL Nucleated RBC % (auto) 0.0 (0.0-0.2) /100WBC Sodium 142 (135-145) mmol/L Potassium 4.1 (3.3-5.1) mmol/L Chloride 108 (96-108) mmol/L Carbon Dioxide 26 (22-29) mmol/L Anion Gap 12 (12-20) BUN 10 (9-16) mg/dL Creatinine 0.77 (0.5-1.4) mg/dL Estim Creat Clear Calc 71.0 Estimated GFR > 60 Random Glucose 103 (60-115) mg/dL Calcium 9.3 D (8.4-10.2) mg/dL Magnesium 2.0 (1.6-2.6) mg/dL Total Bilirubin 0.4 (0.0-1.0) mg/dL AST 23 (5-31) U/L ALT 23 (0-31) U/L Alkaline Phosphatase 65 (39-117) U/L Total Protein 7.8 (6.5-8.0) g/dL Albumin 4.4 (3.5-5.0) g/dL Lipase 13 (8-78) U/L Urine Color Yellow Urine Appearance Cloudy Urine pH 6.5 (5.0-9.0) Ur Specific [place] 1.015 (1.005-1.025) Urine Protein Trace (Neg-Trace) mg/dL Urine Glucose (UA) Negative (Negative) mg/dL Urine Ketones Negative (Negative) mg/dL Urine Blood Negative (Negative) Urine Nitrite Negative (Negative) Ur Leukocyte Esterase Small (1+) H (Negative) Urine RBC 0-2 (0-2) /HPF Urine WBC 21-50 H (0-5) /HPF Ur Squamous Epith Cells 11-20 (0-2) /HPF Urine Bacteria 3+ (None Seen) Hyaline Casts 3-5 (0-2) /LPF Independent Interpretation I performed an independent interpretation of an: CT Scan (No nephrolithiasis, stool burden to the ascending colon) Radiology Impression Discussion of test interpretation with radiology: I have reviewed the radiologist's reading. Radiologist Impression: CT abdomen and pelvis without contrast Comparison: CT/REG/SR - CT ABDOMEN PELVIS W CON - 11/27/21 14:32 EDT Findings: No consolidation or effusion. Small hiatal hernia. The gallbladder is surgically absent. The liver, spleen, adrenal glands and pancreas are unremarkable. The kidneys, ureters and bladder are within normal limits Normal appendix. Mild fecal retention. Diverticulosis without evidence of diverticulitis. Diffuse atherosclerotic disease. Degenerative changes seen within the lower lumbar spine. Impression: No definite acute process. Fecal retention. Diverticulosis Chronic Conditions Patient?s care impacted by: Other (See narrative above) Discharge Plan Discharge Clinical Impression: Fecal retention Patient Disposition: Home, Self-Care Instructions: Constipation (ED) Additional Instructions: As discussed, imaging today shows stool burden on the right side of the intestines which may be attributing to the pain that you are experiencing, other considerations is whether this is muscular in nature. Take MiraLax twice daily. Uses develop diarrhea. Increase fiber in diet. May apply ice/heat to the well muscular. Follow-up with your primary care doctor within the week if symptoms are not improving Prescriptions: New polyethylene glycol 3350 [Miralax] 17 gram/dose powder 17 g PO BID Qty: 119 0RF No Action cetirizine [Zyrtec] 10 mg tablet 10 mg PO DAILY PRN (Reason: allergy symptoms) Qty: 30 0RF meclizine 25 mg tablet 25 mg PO BID PRN (Reason: dizziness) Qty: 30 0RF simvastatin 40 mg tablet 40 mg PO DAILY cholecalciferol (vitamin D3) 10 mcg (400 unit) capsule 10 mcg PO DAILY Referrals: Rajesh Javed MD [Primary Care Provider] - Print Language: Armenian
[2024-11-22 09:57] LABS: Alanine Aminotransferase 23 U/L (0-31); Albumin Level 4.4 g/dL (3.5-5.0); Alkaline Phosphatase 65 U/L (39-117); Anion Gap 12 (12-20); Aspartate Amino Transferase 23 U/L (5-31); Bilirubin Total 0.4 mg/dL (0.0-1.0); Blood Urea Nitrogen 10 mg/dL (9-16); Calcium 9.3 mg/dL (8.4-10.2); Carbon Dioxide 26 mmol/L (22-29); Chloride 108 mmol/L (96-108); Estimated Glomerular Filt Rate > 60; Glucose Random 103 mg/dL (60-115); Lipase 13 U/L (8-78); Potassium 4.1 mmol/L (3.3-5.1); Sodium 142 mmol/L (135-145); Total Protein 7.8 g/dL (6.5-8.0)
[2024-11-22 10:11] VITALS: BP 162/94; PULSE 94; RESP 16; O2SAT 97
[2024-11-22 10:12] LABS: Appearance Urine Cloudy; Basophils Absolute Auto 0.1 X10*3/uL (0.0-0.2); Basophils Percent Auto 0.7 % (0-2); Color Urine Yellow; Eosinophils Absolute Auto 0.1 X10*3/uL (0.0-0.4); Eosinophils Percent Auto 1.3 % (0-4); Glucose Urine UA Negative (Negative); Hematocrit 41.4 % (37.0-47.0); Hemoglobin 14.3 g/dl (12.0-16.0); Imm Gran Abs Auto 0.02 X10*3/uL (0.00-0.03); Imm Gran Pct Auto 0.3 % (0.0-0.4); Leukocyte Esterase Urine Small (1+) (Negative); Lymphocytes Absolute Auto 2.5 X10*3/uL (1.2-4.9); Lymphocytes Percent Auto 33.7 % (20-40); Mean Corpuscular HGB Conc 34.5 g/dl (31.0-35.0); Mean Corpuscular Hemoglobin 31.3 pg (27.0-33.0); Mean Corpuscular Volume 90.6 fL (80.0-98.0); Mean Platelet Volume 9.6 fL (9.4-12.3); Monocytes Absolute Auto 0.4 X10*3/uL (0.1-1.2); Monocytes Percent Auto 5.7 % (2-11); Neutrophils Absolute Auto 4.3 x10*3/uL (2.0-8.3); Neutrophils Percent Auto 58.3 % (45-73); Nitrite Urine Negative (Negative); PH 6.5 (5.0-9.0); Platelet Count 341 X10*3/uL (160-400); Red Blood Count 4.57 X10*6/uL (4.20-5.50); Red Cell Distribution Width 13.3 % (11.0-16.0); Specific Gravity - Urine 1.015 (1.005-1.025); UMIC TRIGGER UACC YES; Urine Blood Negative (Negative); Urine Ketones Negative (Negative); Urine Protein Trace mg/dL (Neg-Trace); White Blood Count 7.4 X10*3/uL (4.8-10.8)
--- NOTE | 2024-11-22 10:14 | PC.NURSE ---
Pt comes to ED today from home for c/o abd pain starting 2 nights ago. Pt states pain has been increasing and has caused her to have disruptions in her sleep. She reports pain increases when lying flat and resolves with sitting upright, currently pain level is zero as she is sitting upright. Blood work completed in triage. Awaiting CT scan results.
[2024-11-22 10:17] LABS: Bacteria Urine 3+ (None Seen); RBC Urine 0-2 /HPF (0-2); UACC Culture Trigger YES; WBC Urine 21-50 /HPF (0-5)
[2024-11-22 12:15] VITALS: BP 163/86; PULSE 76; RESP 16; TEMP 36.2; O2SAT 97
== END 2024-11-22 12:16 | disposition home or self-care (01) ==
PROVIDERS: Physician Assistant; Emergency Provider Emergency Medicine; PCP Internal Medicine
DX: K59.00 Constipation, unspecified (principal); R10.2 Pelvic and perineal pain; R10.31 Right lower quadrant pain; Z79.899 Other long term (current) drug therapy
CPT/HCPCS: 36415; 74176; 80053; 81001; 81003; 83690; 83735; 85025; 87086; 99284

== ENCOUNTER → 2024-11-22 09:47 | Outpatient (BNV) | payer MEDICARE, SELFPAY | PROVIDERS: Emergency Provider Emergency Medicine; PCP Internal Medicine; Visit Provider Radiology Vascular & Interventional Radiology | DX: K57.90 Diverticulosis of intestine, part unspecified, without perforation or abscess without bleeding (principal); K56.41 Fecal impaction | CPT/HCPCS: 74176 ==

== ENCOUNTER 2024-11-26 08:53 | Outpatient (AMB) | payer MEDICARE, SELFPAY ==
--- NOTE | 2024-11-26 08:56 | MHC.PC.OV ---
Vital Signs 11/26/24 08:57 Height 5 ft 2 in Weight 185 lb BMI 33.8 BP 146/92 H Respiration 14 Pulse 96 Pulse Source Pulse Oximeter Temp 97.7 F Temp Source Temporal Artery Scan Pulse Oximetry (%) 96 Oxygen Delivery Method Room Air Intake Visit Reasons: Routine Fabrication Specialist Required: No Accompanied by: Self / Same As Patient Allergies No Known Allergies Allergy (Verified 11/26/24 09:01) Tobacco use date assessed: 11/26/24 Fall risk assessment: No Falls in past year Last assessed Fall Risk: 11/26/24 Dental Screening Dental Screen Date: 11/26/24 Did you have a dental visit in the last 12 months?: Yes Did you have a dental problem in the last 6 months where you did not have access to dental care?: No HPI HPI Comments History of Present Illness Details The patient is a 69 year old female with a past medical history of HLD, chronic constipation, LCIS left, OA presenting for ongoing constipation She was evaluated in the ER on 11/22 for abdominal pain. Had labs, CT scan-mild fecal retention. Started on miralax. Has been taking OTC dulcolax unclear if stimulant. Only making small BMs still bloated, uncomfortable ROS No fevers, abnormal weight loss, blood in the stools PHYSICAL EXAM: GENERAL: Alert and oriented x 3. NAD EYES: EOMI. Anicteric. HENT: Moist mucous membranes. No scleral icterus. No cervical lymphadenopathy. LUNGS: Clear to auscultation bilaterally. CARDIOVASCULAR: Regular rate and rhythm. No murmur. No JVD. ABDOMEN: Soft, hypoactive bowel sounds EXTREMITIES: No edema. Non-tender. SKIN: No rashes or lesions. Warm. NEUROLOGIC: No focal neurological deficits. CN II-XII grossly intact PSYCHIATRIC: Cooperative. Appropriate mood and affect [facility] Medical History Lump of breast, left Lobular carcinoma in situ (LCIS) of right breast Osteoarthritis of right hip Osteoarthritis High cholesterol Surgical History History of right hip replacement Hx of colonoscopy History of delivery Hx of cholecystectomy History of nasal surgery History of breast surgery Tubal ligation status Family History Maternal Aunt Breast CA Social History Household Members: Family Housing: House Are you a primary rn primary care to a significant other at home: No Do you presently have visiting nurse or other home services: No 75 years or older and lives alone: No Alcohol intake: never Comment: aware of trip hazard Patient Tobacco Use Status: Never used Tobacco service: No Current occupational status: employed 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 1. Little interest or pleasure in doing things: not at all 2. Feeling down, depressed, or hopeless: not at all 3. Trouble falling or staying asleep, or sleeping too much: not at all 4. Feeling tired or having little energy: not at all 5. Poor appetite or overeating: not at all 6. Feeling bad about yourself - or that you are a failure or have let yourself or your family down: not at all 7. Trouble concentrating on things, such as reading the newspaper or watching television: not at all 8. Moving or speaking so slowly that other people could have noticed. Or the opposite - being so fidgety or restless that you have been moving around a lot more than usual: not at all 9. Thoughts that you would be better off or of hurting yourself in some way: not at all Total score: 0 Depression Screening Interpretation: Negative Depression Screening Done: Yes 27193 - PHQ-9 Billing: Yes Source: Developed by Drs. Landon Max, Prerna Phillip, Arik Mehta and colleagues, with an educational konrad from [employer]. Thrive Questionnaire Date Thrive assessed: 11/26/24 I am a: Patient What is your living situation today?: I have a steady place to live Within the past 12 months, did the food you bought not last and you didn't have the money to get more?: Never true Within the past 12 months, did you worry whether your food would run out before you got money to buy more?: Never true Do you have trouble paying for medicines?: No Do you have trouble getting transportation to medical appointments?: No Do you have trouble paying your heating and electricity bill?: No Do you have trouble taking care of your child, family member or friend?: No Do you have trouble with day-to-day activities such as bathing, preparing meals, shopping, managing finances, etc.?: No Are you currently unemployed and looking for a job?: No Are you interested in more education?: No THRIVE Score: 0 AUDIT C Alcohol Use Questionnaire (AUDIT-C) 1. How often do you have a drink containing alcohol?: Never 3. How often do you have six or more drinks on one occasion?: Never Total Score: 0 KAYLENE-7 AMB Questionnaire KAYLENE-7 Date KAYLENE - 7 assessed: 11/26/24 Feeling nervous, anxious, or on edge: 0 = Not at all Not being able to stop or control worryin = Not at all Worrying too much about different things: 0 = Not at all Trouble relaxin = Not at all Being so restless that it is hard to sit still: 0 = Not at all Becoming easily annoyed or irritable: 0 = Not at all Feeling afraid as if something awful might happen: 0 = Not at all Total KAYLENE-7 score (0-4 normal; 5-9 mild; 10-14 moderate; 15-21 severe): 0 Source: Developed by Drs. Landon Max, Prerna Phlilip, Arik Mehta and colleagues, with an educational konrad from [employer]. Physical exam (Primary Care) Vital Signs: Last Vital Signs Temp 97.7 F 11/26/24 08:57 Pulse 96 11/26/24 08:57 Resp 14 11/26/24 08:57 BP 146/92 H 11/26/24 08:57 Pulse Ox 96 11/26/24 08:57 Oxygen Delivery Method Room Air 11/26/24 08:57 BMI result Body Mass Index 33.8 Tobacco/Smoking Status: Tobacco use Status Tobacco use date assessed 11/26/24 11/26/24 09:03 Patient Tobacco Use Status Never used Tobacco 11/26/24 09:03 PHQ-9: PHQ-9 Score PHQ-9: Total score 0 11/26/24 09:03 Depression Screening Interpretation: Negative Thrive Assessment: Date of Thrive Assessment Date Thrive assessed 11/26/24 11/26/24 09:03 Coding Level of Care Code Est Pt Level 4 (39919) Complex EM visit Add On G2211 Diagnoses Chronic constipation K59.09 Generalized abdominal pain R10.84 Abdominal location: generalized Additional Codes PHQ-9 - 42675 - PHQ-9 Billing: Yes ([id number]) Assessment & Plan Assessment & Plan (1) Chronic constipation: Code(s): K59.09 - Other constipation Category: Medical (2) Abdominal pain: Code(s): R10.9 - Unspecified abdominal pain Category: Medical Qualifiers: Abdominal location: generalized Qualified Code(s): R10.84 - Generalized abdominal pain Plan Start lactulose Start daily linzess Needs referral to GI which is placed. May be due for colonoscopy but if symptoms persist will need anyways ER for acute worsening abdominal pain, blood in stools or high fevers Orders: Orders TSH reflex Free T4 Today K59.09 - Other constipation Referrals Gastroenterology Referral K59.09 - Other constipation, Z12.11 - Encounter for screening for malignant neoplasm of colon Medications: New lactulose until desired laxative effect 20 grams (30 mL) PO TID 72 hours 270 mL 3RF Linzess (linaclotide) 290 mcg PO DAILY 90 caps 3RF NS K59.00 - Constipation, unspecified, K59.09 - Other constipation
[2024-11-26 08:57] VITALS: BP 146/92; PULSE 96; RESP 14; TEMP 36.5; O2SAT 96; BMI 33.8
== END 2024-11-26 09:28 | disposition home or self-care (01) ==
LOC: HO.HMCHD 08:53
PROVIDERS: PCP Internal Medicine; Visit Provider Internal Medicine
DX: K59.09 Other constipation (principal); R10.84 Generalized abdominal pain

== ENCOUNTER 2024-11-26 09:43 | Outpatient (REF) | payer MEDICARE, SELFPAY ==
[2024-11-26 12:23] LABS: TSH reflex Free T4 2.13 uIU/mL (0.32-4.0)
== END 2024-11-26 09:44 | disposition home or self-care (01) ==
LOC: HO.10HDL 09:43
PROVIDERS: Visit Provider Internal Medicine
DX: K59.09 Other constipation (principal)
CPT/HCPCS: 36415; 84443; 96127; 99212

== ENCOUNTER 2024-11-30 10:19 | Outpatient (AMB) | payer MEDICARE, SELFPAY ==
--- NOTE | 2024-11-30 10:22 | AM.OFFWIN_ITS ---
Intake Vital Signs 11/30/24 10:23 Height 5 ft 2 in Weight 185 lb BMI 33.8 BP 144/82 H Blood Pressure Location Lt brachial Position Sitting Pulse 86 Pulse Source Pulse Oximeter Temp 97.8 F Temp Source Oral Pulse Oximetry (%) 98 Intake Visit Reasons: EP-?shingles Intake Note: pt is here for shingles Patient Tobacco Use Status: Never used Tobacco Allergies No Known Allergies Allergy (Verified 11/30/24 10:23) Do you need a note to return to daycare/school/sports/work: No HPI HPI Comments History of Present Illness Details History of Present Illness - The patient is a 69-year-old female pr esenting with suspected shingles and constipation. - Rash symptoms began one week prior, ev olving from an appearance similar to a scratch to a state resembling shingles with associated sharp, burning pain. Patient distinguishes current pain as separate from rash-associated burning sensation indicating herpes zoster. - No visible vesicles as initial rash ar ea is scabbed over and newer area is just erupting. Is unsure if orig rash area had fluid filled vesicles. - Patient also having severe constipatio n confirmed via CT scan at an ER visit last week, which suggested laxative treatments. - Initial management involved enemas wit hospital-provided MiraLAX followed by lactulose syrup prescribed by Dr. Alejo to alleviate constipation. - Subsequent relief of constipation is r eported, though abdominal discomfort persists. - Abdominal pain is described as spasmod ic, potentially resulting from prior constipation treatments. Physical Exam General: Cooperative, healthy appearing, comfortable, no acute distress and well developed Orientation: Patient oriented x3 Limitations: No limitations Head: Normal to inspection Ears: Hearing grossly normal bilaterally Nose: Normal external nose present Face and sinus: Normal facial exam Eyes: Appearance normal, both eyes and all related structures Neck: Normal visual inspection and Yes full ROM Respiratory: Normal respiratory effort and able to speak in complete sentences. Skin: in T10 dermatome, pt has right sided 1cm cluster of a scabbed rash, towards the umbilicus pt has slightly raised 1cm area of pinpoint vesicles on erythematous base. Neuro: Patient oriented x3 Extremities: Normal to inspection [facility] Medical History Lump of breast, left Lobular carcinoma in situ (LCIS) of right breast Osteoarthritis of right hip Osteoarthritis High cholesterol Surgical History History of right hip replacement Hx of colonoscopy History of delivery Hx of cholecystectomy History of nasal surgery History of breast surgery Tubal ligation status Family History Maternal Aunt Breast CA Social History Household Members: Family Housing: House Are you a primary veterinarian laboratory animal care to a significant other at home: No Do you presently have visiting nurse or other home services: No 75 years or older and lives alone: No Alcohol intake: never Comment: aware of trip hazard Patient Tobacco Use Status: Never used Tobacco service: No Current occupational status: employed 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 [employer] Sexual orientation: Straight/Heterosexual Gender identity: Female Cognitive needs: No Hearing needs: No Vision needs: Yes (rx glasses) Female Reproductive History Menstrual Age of Menarche: 12 Review of Systems Const All systems reviewed & are unremarkable except as noted in HPI and below Physical Exam Vital Signs: Last Vital Signs Temp 97.8 F 11/30/24 10:23 Pulse 86 11/30/24 10:23 BP 144/82 H 11/30/24 10:23 Pulse Ox 98 11/30/24 10:23 BMI result Body Mass Index 33.8 Assessment & Plan Assessment & Plan (1) Shingles: Code(s): B02.9 - Zoster without complications Qualifiers: Herpes zoster complications: without complications Qualified Code(s): B02.9 - Zoster without complications Plan: For managing suspected Herpes Zoster, since symptoms are beyond the acute phase, gabapentin, 100 mg, was prescribed thrice daily as needed/as required for nerve pain management. Patient was informed and verbally consented to the use of an ambient scribe for clinic note documentation during this visit. (2) Fecal retention: Code(s): K59.00 - Constipation, unspecified Qualifiers: Constipation type: unspecified constipation type Qualified Code(s): K59 .00 - Constipation, unspecified Plan: Given the previous use of lactulose, which resolved constipation issues, stopping it was advised due to the possibility of contributing to residual abdominal pain from medication effects. Monitoring is recommended, with attention to symptoms potentially related to shingles and abdominal adjustments post-lactulose. Note of ongoing GI specialty referral for comprehensive evaluation of persistent gastrointestinal issues. Patient given red flags on when to seek emergency care. Medications: New gabapentin 100 mg PO TID PRN 20 caps 0RF pain Coding Level of Care Code Est Pt Level 3 (46136) Diagnoses Herpes zoster without complication B02.9 Herpes zoster complications: without complications Constipation, unspecified constipation type K59.00 Constipation type: unspecified constipation type
[2024-11-30 10:23] VITALS: BP 144/82; PULSE 86; TEMP 36.6; O2SAT 98; BMI 33.8
== END 2024-11-30 10:58 | disposition home or self-care (01) ==
PROVIDERS: PCP Internal Medicine; Visit Provider Physician Assistant
DX: B02.9 Zoster without complications (principal); K59.00 Constipation, unspecified

== ENCOUNTER → 2024-11-30 10:19 | Outpatient (BNVA) | payer MEDICARE, SELFPAY | PROVIDERS: PCP Internal Medicine; Visit Provider Physician Assistant | DX: B02.9 Zoster without complications (principal); K59.00 Constipation, unspecified | CPT/HCPCS: 99212 ==

== ENCOUNTER 2024-12-18 08:50 | Outpatient (REF) | payer MEDICARE, SELFPAY ==
--- NOTE | ~2024-12-18 | MM_ITS ---
EXAMINATION: MM DIAGNOSTIC DIGITAL BREAST TOMOSYNTHESIS, LEFT CLINICAL INFORMATION: Palpable left breast lump. COMPARISON: Mammography: Comparison is made with relevant prior exams. TECHNIQUE: Digital breast mammography with tomosynthesis is performed in both the craniocaudal and mediolateral oblique views along with computer-aided detection (CAD). FINDINGS: The breasts are heterogeneously dense, which may obscure small masses (ACR BI-RADS breast composition Category c). BB marker in the retroareolar region anterior depth without underlying abnormality. There are no significant masses, abnormal calcifications, or other abnormalities. Targeted color Doppler ultrasound Demonstrates a hypoechoic oval solid mass at 5:00 retroareolar region measuring 4 x 5 x 5 mm which correlates with the palpable lump. Results are provided to the patient at time of visit by the technologist. MM/MM tomosynthesis diagnostic BI IMPRESSION: Solid mass 5:00 retroareolar region correlating with patient's palpable lump. Recommend ultrasound-guided core needle biopsy at this time for confirmation. The findings and recommendations were discussed with the patient the procedure will be scheduled. ASSESSMENT: BI-RADS BI-RADS 4 - Suspicious finding RECOMMENDATION: Biopsy recommended This patient's information was entered into a reminder system with a target due date for their next mammogram. Electronically signed by: Steph Styles DO 12/18/2024 10:23 AM EDT
--- OUTSIDE RECORDS SUMMARY | 2024-12-18 09:22 | XMS_ITS | Patient Health Record ---
Author Organization [facility] Address [address] [place] [address] Care Team Providers Care Spareribs Trimmer Name Role Phone Mary Alejo M.D. Primary Care Provider [place] Landon Maier Unavailable [phone] Reason For Referral No Information Medications Medication SIG (Take, Route, Fr equency, Duration) Notes Start Date End Date Status Simvastatin 40 MG 1 tablet in the even ing Orally Once a day Active Problems Problem Type SNOMED Code ICD Code Onset Dates Problem Status W/U Status Risk Notes Problem 022771013 Encounter for screening for malignant neoplasm of colon (Z12.11) Active confirmed Problem Screening for malignant neoplasm of rectum (900665526) Encounter for screening for malignant neoplasm of rectum (Z12.12) Active confirmed Problem 47013707 Preprocedural examination (Z01.818) Active confirmed Plan Of Treatment Future Test Test Name Order Date COLONOSCOPY 05/23/2016 Next Appt Details Provider Name:Landon Domínguez , 04/01/2025 09:40:00 AM, [address] [place] [address], [address], [place], [address], Insurance Providers Payer Name Payer Address Payer Phone Subscriber Number Group Number Insured Name Patient Relationship to Insured Coverage Start Date Coverage End Date [facility] [address] [facility] [phone] [id number] CRISS DEUTSCH Self - patient is the insured Medical (General) History Medical History History ICD Code Screening colonoscopy 11/2006--hyperplast ic polyps Hyperlipidemia Denies [place],DM,CVA,Lung disease,renal dise ase Surgical History Surgery Date(Month/Year) Cholecystectomy 04/2016 4 C-sections Breast surgey for nipple discharge--
== END 2024-12-18 08:51 | disposition home or self-care (01) ==
LOC: HO.MAMMO 08:50
PROVIDERS: PCP Internal Medicine; Visit Provider Advanced Practice Midwife
DX: N63.25 Unspecified lump in the left breast, overlapping quadrants (principal)
CPT/HCPCS: 76642; 77062; 77066

== ENCOUNTER → 2024-12-18 09:00 | Outpatient (BNV) | payer MEDICARE, SELFPAY | PROVIDERS: PCP Internal Medicine; Visit Provider Internal Medicine | DX: N63.23 Unspecified lump in the left breast, lower outer quadrant (principal); R92.1 Mammographic calcification found on diagnostic imaging of breast | CPT/HCPCS: 76642; 77066; G0279 ==

== ENCOUNTER 2024-12-22 13:24 | Outpatient (AMB) | payer MEDICARE, SELFPAY ==
--- NOTE | 2024-12-22 13:25 | A.OFFVIS_ITS ---
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 Time spent included review of pertinent office notes in the electronic health record; review of laboratory and imaging results; review of personal family medical history; discussing diagnosis and plan of care with the patient; documenting the encounter in the EMR. Patient presents to discuss: Ultrasound and mammogram findings due to a history of left breast lump. History of breast cancer. She reports recent shingles episode this past month. [facility] Medical History Lump of breast, left Lobular carcinoma in situ (LCIS) of right breast Osteoarthritis of right hip Osteoarthritis High cholesterol Surgical History History of right hip replacement Hx of colonoscopy History of delivery Hx of cholecystectomy History of nasal surgery History of breast surgery Tubal ligation status Family History Maternal Aunt Breast CA Social History Household Members: Family Housing: House Are you a primary director career to a significant other at home: No Do you presently have visiting nurse or other home services: No 75 years or older and lives alone: No Alcohol intake: never Comment: aware of trip hazard Patient Tobacco Use Status: Never used Tobacco service: No Current occupational status: employed 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[employer] Sexual orientation: Straight/Heterosexual Gender identity: Female Cognitive needs: No Hearing needs: No Vision needs: Yes (rx glasses) Female Reproductive History Menstrual Age of Menarche: 12 Review of Systems Const All systems reviewed & are unremarkable except as noted in HPI and below Endo Reports no additional complaints Physical Exam Const General: cooperative, healthy appearing and no acute distress Psych Appearance: well kempt Attitude: cooperative Thought process: Normal thought process present Telehealth Telehealth Telehealth Platform: Playroll Location of provider rendering services: practice address Location of patient: other Patient Identification confirmed using: Name, : Yes Telehealth method: video Patient verbally consented to treatment: Yes Patient verbally consented to billing insurance company: Yes Patient informed of any privacy concerns related to visit: Yes Results Reviewed Results Reviewed: [facility] [address] [place] [address] Ultrasound Report Signed Patient: Margot [place] MR#: [id number] : 1955 Acct:[id number] Age/Sex: 69 / F ADM Date: 12/18/24 Loc: HO.MAMMO Attending Dr: Leia Linton CNM Ordering Physician: Leia Linton CNM Date of Service: 12/18/24 Procedure(s): US breast LT limited mamm only Accession Number(s): [id number] cc: Leia Linton CNM; Mary Alejo MD~ EXAMINATION: MM DIAGNOSTIC DIGITAL BREAST TOMOSYNTHESIS, LEFT CLINICAL INFORMATION: Palpable left breast lump. COMPARISON: Mammography: Comparison is made with relevant prior exams. TECHNIQUE: Digital breast mammography with tomosynthesis is performed in both the craniocaudal and mediolateral oblique views along with computer-aided detection (CAD). FINDINGS: The breasts are heterogeneously dense, which may obscure small masses (ACR BI-RADS breast composition Category c). BB marker in the retroareolar region anterior depth without underlying abnormality. There are no significant masses, abnormal calcifications, or other abnormalities. Targeted color Doppler ultrasound Demonstrates a hypoechoic oval solid mass at 5:00 retroareolar region measuring 4 x 5 x 5 mm which correlates with the palpable lump. Results are provided to the patient at time of visit by the technologist. US/US breast LT limited mamm only IMPRESSION: Solid mass 5:00 retroareolar region correlating with patient's palpable lump. Recommend ultrasound-guided core needle biopsy at this time for confirmation. The findings and recommendations were discussed with the patient the procedure will be scheduled. ASSESSMENT: BI-RADS BI-RADS 4 - Suspicious finding RECOMMENDATION: Biopsy recommended This patient's information was entered into a reminder system with a target due date for their next mammogram. Electronically signed by: Steph Styles DO 12/18/2024 10:23 AM EDT Dictated By: Steph Styles DO Signed By: <Electronically signed by Steph Styles DO in OV> 04/04/25 1023 DD/ 0930 TD/TT: 12/18/24 0955 Passenger Locomotive Engineer: Assessment & Plan Assessment & Plan (1) Lump of breast, left: Code(s): N63.20 - Unspecified lump in the left breast, unspecified quadrant Category: Medical Qualifiers: Breast mass location: unspecified quadrant Qualified Code(s): N63.20 - Unspecified lump in the left breast, unspecified quadrant Plan Discussed: Ultrasound and mammogram results. Has a appointment with Dr. Hall next week for breast ultrasound guidance biopsy. The patient expressed understanding and agreement with the plan of care. Encouraged adequate rest, healthy diet, hydrate well and stress reduction measures. All of her questions and concerns were addressed to the best of my ability. This note is constructed using voice recognition software. While every effort has been made to ensure accuracy, chin strap cutter errors may have been included. Coding Level of Care Code Tele Est Pt Level 2 (41967) Diagnoses Mass of left breast, unspecified quadrant N63.20 Breast mass location: unspecified quadrant
--- OUTSIDE RECORDS SUMMARY | 2024-12-22 16:18 | XMS_ITS | Patient Health Record ---
Author Organization [facility] Address [address] [place] [address] Care Team Providers Care Gardening Supervisor Name Role Phone Mary Alejo M.D. Primary Care Provider [place] Landon Maier Unavailable [phone] Reason For Referral No Information Medications Medication SIG (Take, Route, Fr equency, Duration) Notes Start Date End Date Status Simvastatin 40 MG 1 tablet in the even ing Orally Once a day Active Problems Problem Type SNOMED Code ICD Code Onset Dates Problem Status W/U Status Risk Notes Problem [id number] Encounter for screening for malignant neoplasm of colon (Z12.11) Active confirmed Problem Screening for malignant neoplasm of rectum (217632087) Encounter for screening for malignant neoplasm of rectum (Z12.12) Active confirmed Problem 14490738 Preprocedural examination (Z01.818) Active confirmed Plan Of Treatment Future Test Test Name Order Date COLONOSCOPY 05/23/2016 Next Appt Details Provider Name:Landon Domínguez , 04/01/2025 09:40:00 AM, [address] [place] [address], [address], [place], [address], Insurance Providers Payer Name Payer Address Payer Phone Subscriber Number Group Number Insured Name Patient Relationship to Insured Coverage Start Date Coverage End Date [facility] [address] [facility] [phone] [id number] CRISS DEUTSCH Self - patient is the insured Medical (General) History Medical History History ICD Code Screening colonoscopy 11/2006--hyperplast ic polyps Hyperlipidemia Denies [place],DM,CVA,Lung disease,renal dise ase Surgical History Surgery Date(Month/Year) Cholecystectomy 04/2016 4 C-sections Breast surgey for nipple discharge--
== END 2024-12-22 15:05 | disposition home or self-care (01) ==
LOC: HO.HWS 13:24
PROVIDERS: PCP Internal Medicine; Visit Provider Advanced Practice Midwife
DX: N63.20 Unspecified lump in the left breast, unspecified quadrant (principal)
CPT/HCPCS: 99212

== ENCOUNTER 2024-12-29 08:23 | Outpatient (AMB) | payer MEDICARE, SELFPAY ==
--- OUTSIDE RECORDS SUMMARY | 2024-12-29 08:30 | XMS_ITS | Patient Health Record ---
Author Organization [facility] Address [address] [place] [address] Care Team Providers Care Powerplant Operator Name Role Phone Mary Alejo M.D. Primary Care Provider [place] Landon Maier Unavailable [phone] Reason For Referral No Information Medications Medication SIG (Take, Route, Fr equency, Duration) Notes Start Date End Date Status Simvastatin 40 MG 1 tablet in the even ing Orally Once a day Active Problems Problem Type SNOMED Code ICD Code Onset Dates Problem Status W/U Status Risk Notes Problem 164008584 Encounter for screening for malignant neoplasm of colon (Z12.11) Active confirmed Problem Screening for malignant neoplasm of rectum (336657490) Encounter for screening for malignant neoplasm of rectum (Z12.12) Active confirmed Problem 51310433 Preprocedural examination (Z01.818) Active confirmed Plan Of Treatment Future Test Test Name Order Date COLONOSCOPY 05/23/2016 Next Appt Details Provider Name:Landon Domínguez , 04/01/2025 09:40:00 AM, [address] [place] [address], [address], [place], [address], Insurance Providers Payer Name Payer Address Payer Phone Subscriber Number Group Number Insured Name Patient Relationship to Insured Coverage Start Date Coverage End Date [facility] [address] [facility] [phone] [id number] CRISS DEUTSCH Self - patient is the insured Medical (General) History Medical History History ICD Code Screening colonoscopy 11/2006--hyperplast ic polyps Hyperlipidemia Denies SD,DM,CVA,Lung disease,renal dise ase Surgical History Surgery Date(Month/Year) Cholecystectomy 04/2016 4 C-sections Breast surgey for nipple discharge--
--- NOTE | 2024-12-29 08:45 | MHC.OFFVIS ---
Vital Signs 12/29/24 08:48 Height 5 ft 2 in Weight 189 lb BMI 34.6 BP 155/72 H Blood Pressure Location Rt brachial Position Sitting Pulse 93 Intake Visit Reasons: US guided BX, lft breast 5 o'clock mass Intake Note: Patient is seen in office for ultrasound biopsy CONSULT left breast retroareolar mass. Pt c/o: feels lump on lt br. Denies pain, redness, nipple discharge. Maternal aunt w/ hx of breast CA. Bx sched: 12/31/24 @ 8am Sheet Metal Journeyman Required: No Sheet Metal Journeyman Services: Sheet Metal Journeyman Present Accompanied by: Self / Same As Patient Allergies No Known Allergies Allergy (Verified 12/29/24 08:47) HPI Comments Details: 69-year-old female presenting with a left breast mass. The mass, described as small and mobile, was discovered below the areola at the 5 o'clock position during self-examination. The patient denies any pain upon palpation, discharge, bleeding, or skin changes in the affected area. This new development is of particular concern given her history of Lobular Carcinoma In Situ (LCIS) in the right breast 11 years ago, for which she underwent surgery without adjunct radiation or chemotherapy. Her family history includes an aunt with breast cancer, although further family cancer history is limited due to the passing of her mother at the age of 56. The patient's reproductive history includes four children and onset of menses at age 14, ending in her 50s. The patient has recently had an episode of shingles manifesting as a localized rash and pain, which has since resolved except for occasional post-herpetic neuralgia. [facility] Medical History Lump of breast, left Lobular carcinoma in situ (LCIS) of right breast Osteoarthritis of right hip Osteoarthritis High cholesterol Surgical History History of right hip replacement Hx of colonoscopy History of delivery Hx of cholecystectomy History of nasal surgery History of breast surgery Tubal ligation status Family History Maternal Aunt Breast CA Social History Household Members: Family Housing: House Are you a primary daycare director to a significant other at home: No Do you presently have visiting nurse or other home services: No 75 years or older and lives alone: No Alcohol intake: never Comment: aware of trip hazard Patient Tobacco Use Status: Never used Tobacco service: No Current occupational status: employed 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[employer] Sexual orientation: Straight/Heterosexual Gender identity: Female Cognitive needs: No Hearing needs: No Vision needs: Yes (rx glasses) Female Reproductive History Menstrual Age of Menarche: 12 Review of Systems Const All systems reviewed & are unremarkable except as noted in HPI and below Physical Exam Vital Signs: Last Vital Signs Pulse 93 12/29/24 08:48 BP 155/72 H 12/29/24 08:48 BMI result Body Mass Index 34.6 Const General: cooperative and no acute distress Nutritional Appearance: well nourished Orientation/consciousness: patient oriented x3 Limitations: no limitations HEENT Head: Yes normocephalic and Yes atraumatic Ears: hearing grossly normal bilaterally Chest Other: Left breast: No skin change, no nipple retraction, no nipple discharge, small palpable mass located below the nipple areolar complex at approximately the 5-6 o'clock location, no enlarged lymph nodes. Right breast: No skin change, no nipple retraction, no nipple discharge, no palpable mass, no enlarged lymph nodes, well-healed periareolar incision in the upper outer quadrant. Chest/axillae images: 1. Resp Effort & Inspection: normal respiratory effort, no audible wheezes, no cough and no respiratory distress Cardio Jugular venous distension: no JVD GI Inspection: Yes normal to inspection Skin Other: Warm, dry, no rash Neuro Other: Mobility Assessment: 1. 3 meter assessment time (seconds): 5 2. Gait observations: Normal balance and gait General: patient oriented x3 Extrem General: Yes no clubbing, cyanosis or edema Assessment & Plan Assessment & Plan (1) Lump of breast, left: Code(s): N63.20 - Unspecified lump in the left breast, unspecified quadrant Category: Medical Qualifiers: Breast mass location: unspecified quadrant Qualified Code(s): N63.20 - Unspecified lump in the left breast, unspecified quadrant (2) Abnormal ultrasound of breast: Code(s): R92.8 - Other abnormal and inconclusive findings on diagnostic imaging of breast Category: Medical Plan 69-year-old female patient presenting with a palpable mass noted on self-examination in the left breast. She has a prior history of LCIS of the right breast but underwent no adjuvant treatment. Examination today does reveal a palpable mass right below the nipple-areolar complex which appears smooth and mobile. She was scheduled for an ultrasound-guided core biopsy on 12/31/2024 at the [facility]. I recommended she return approximately 1 week to review the pathology results and discuss treatment options. She expressed understanding and agrees with the plan. Orders: Orders US breast ndl core biopsy LT Today N63.20 - Unspecified lump in the left breast, unspecified quadrant, R92.8 - Other abnormal and inconclusive findings on diagnostic imaging of breast Coding Level of Care Code New Pt Level 4 (27794) Diagnoses Mass of left breast, unspecified quadrant N63.20 Breast mass location: unspecified quadrant Abnormal ultrasound of breast R92.8
[2024-12-29 08:48] VITALS: BP 155/72; PULSE 93; BMI 34.6
== END 2024-12-29 09:03 | disposition home or self-care (01) ==
LOC: HO.HGS 08:24
PROVIDERS: PCP Internal Medicine; Visit Provider Surgery
DX: N63.20 Unspecified lump in the left breast, unspecified quadrant (principal); R92.8 Other abnormal and inconclusive findings on diagnostic imaging of breast
CPT/HCPCS: 99204

== ENCOUNTER → 2024-12-29 08:23 | Outpatient (BNVA) | payer MEDICARE, SELFPAY | PROVIDERS: PCP Internal Medicine; Visit Provider Surgery | DX: N63.23 Unspecified lump in the left breast, lower outer quadrant (principal); R92.8 Other abnormal and inconclusive findings on diagnostic imaging of breast | CPT/HCPCS: 99202 ==

== ENCOUNTER 2024-12-31 07:45 | Outpatient (REF) | payer MEDICARE, SELFPAY ==
--- NOTE | ~2024-12-31 | MM_ITS ---
PROCEDURE: ULTRASOUND-GUIDED LEFT BREAST BIOPSY CLINICAL INFORMATION: Left breast retroareolar solid mass at 5:00. COMPARISON: [facility] on PACS. TECHNIQUE: The details of the procedure, as well as the risks, benefits, and alternatives to the procedure were explained to the patient in detail and all of her questions were answered, after which, written informed consent was obtained. PROCEDURE: Prior to the procedure, sonography revealed a solid retroareolar mass in the left breast. A time-out was performed, the lesion intended for biopsy was targeted and the skin of the left breast was then prepped and draped in the usual sterile fashion. Using sonographic guidance, sterile technique, and 1% lidocaine without epinephrine for local anesthesia, a total of 8 cores were obtained through the targeted area with a 18-gauge biopsy device. At the completion of tissue sampling, a single butterfly metallic clip was deposited at the biopsy site. An appropriate sample was obtained. The postprocedure 2-view direct digital mammogram reveals satisfactory positioning of the biopsy clip. The patient tolerated the procedure well and, after assuring adequate hemostasis, was discharged in good condition after reviewing postbiopsy breast care instructions. Final pathology results are pending. MM/MM tomosynthesis diagnostic LT IMPRESSION: 1. Uncomplicated sonographically-guided core biopsy of the left breast. The 2-view direct digital postprocedure mammogram reveals satisfactory positioning of the biopsy clip. 2. Final pathology results are pending. A separate report with final recommendations will be issued once these results are made available. Electronically signed by: Steph Styles DO 12/31/2024 02:28 PM EDT
--- OUTSIDE RECORDS SUMMARY | 2024-12-31 07:47 | XMS_ITS | Patient Health Record ---
Author Organization [facility] Address [address] [place] [address] Care Team Providers Care Edge Worker Name Role Phone Mary Alejo M.D. Primary Care Provider [place] Landon Maier Unavailable [phone] Reason For Referral No Information Medications Medication SIG (Take, Route, Fr equency, Duration) Notes Start Date End Date Status Simvastatin 40 MG 1 tablet in the even ing Orally Once a day Active Problems Problem Type SNOMED Code ICD Code Onset Dates Problem Status W/U Status Risk Notes Problem [id number] Encounter for screening for malignant neoplasm of colon (Z12.11) Active confirmed Problem Screening for malignant neoplasm of rectum (359260987) Encounter for screening for malignant neoplasm of rectum (Z12.12) Active confirmed Problem 67185607 Preprocedural examination (Z01.818) Active confirmed Plan Of Treatment Future Test Test Name Order Date COLONOSCOPY 05/23/2016 Next Appt Details Provider Name:Landon Domínguez , 04/01/2025 09:40:00 AM, [address] [place] [address], [address], [place], [address], Insurance Providers Payer Name Payer Address Payer Phone Subscriber Number Group Number Insured Name Patient Relationship to Insured Coverage Start Date Coverage End Date [facility] [address] [facility] [phone] [id number] CRISS DEUTSCH Self - patient is the insured Medical (General) History Medical History History ICD Code Screening colonoscopy 11/2006--hyperplast ic polyps Hyperlipidemia Denies MO,DM,CVA,Lung disease,renal dise ase Surgical History Surgery Date(Month/Year) Cholecystectomy 04/2016 4 C-sections Breast surgey for nipple discharge--
[2024-12-31] MEDS: Lidocaine HCl 1 % 20 ML VIAL 8 ML SUBCUT (08:38)
[2024-12-31] MEDS: Sodium Bicarbonate 8.4% 50 MEQ/50 ML VIAL SUBCUT (08:39)
== END 2024-12-31 07:46 | disposition home or self-care (01) ==
LOC: HO.MAMMO 07:45
PROVIDERS: Absent Provider Advanced Practice Midwife; PCP Internal Medicine; Visit Provider Surgery
DX: R92.8 Other abnormal and inconclusive findings on diagnostic imaging of breast (principal); N63.24 Unspecified lump in the left breast, lower inner quadrant
CPT/HCPCS: 19083; 77061; 77065; 88305; 99212; A4648; C1729; J2003

== ENCOUNTER → 2024-12-31 08:00 | Outpatient (BNV) | payer MEDICARE, SELFPAY | PROVIDERS: Absent Provider Advanced Practice Midwife; PCP Internal Medicine; Visit Provider Internal Medicine | DX: N63.23 Unspecified lump in the left breast, lower outer quadrant (principal) | CPT/HCPCS: 19083; 77065 ==

== ENCOUNTER 2024-12-31 08:44 | Outpatient (AMB) | payer MEDICARE, SELFPAY ==
--- NOTE | 2024-12-31 08:46 | MHC.PC.OV ---
Vital Signs 12/31/24 08:47 Height 5 ft 2 in Weight 187 lb BMI 34.2 BP 140/80 H Blood Pressure Location Lt brachial Position Sitting Pulse 88 Pulse Source Pulse Oximeter Temp 97.6 F Temp Source Axillary Pulse Oximetry (%) 97 Oxygen Delivery Method Room Air Intake Visit Reasons: Routine Business Unit Controller Required: No Allergies No Known Allergies Allergy (Verified 12/31/24 08:47) Tobacco use date assessed: 12/31/24 Fall risk assessment: No Falls in past year Last assessed Fall Risk: 12/31/24 Dental Screening Dental Screen Date: 12/31/24 Did you have a dental visit in the last 12 months?: Yes Did you have a dental problem in the last 6 months where you did not have access to dental care?: No HPI HPI Comments History of Present Illness Details The patient is a 69 year old female with a past medical history of HLD, chronic constipation, LCIS left, OA presenting for follow up abdominal pain She was evaluated in the ER on 11/22 for abdominal pain. Had labs, CT scan-mild fecal retention. Started on miralax. Has been taking OTC dulcolax unclear if stimulant. Only making small BMs still bloated, uncomfortable. She ended up going to urgent care in the interim with the development of a small rash and it turns out her symptoms were due to shingles. Had breast biopsy this morning. She has follow up with surgery scheduled Hyperlipidemia-On simvastatin. She has a scheduled appt with GI in the summer ROS CONSTITUTIONAL: Denies weight loss, fever and chills. HEENT: Denies changes in vision and hearing. RESPIRATORY: Denies SOB and cough. CV: Denies palpitations and CP GI: Denies abdominal pain, nausea, vomiting and diarrhea. : Denies dysuria and urinary frequency. MSK: Denies new myalgia and joint pain. SKIN: Denies rash and pruritus. NEUROLOGICAL: Denies headache PSYCHIATRIC: Denies recent changes in mood. PHYSICAL EXAM: GENERAL: Alert and oriented x 3. NAD EYES: EOMI. Anicteric. HENT: Moist mucous membranes. No scleral icterus. No cervical lymphadenopathy. LUNGS: Clear to auscultation bilaterally. CARDIOVASCULAR: Regular rate and rhythm. No murmur. No JVD. ABDOMEN: Soft, hypoactive bowel sounds EXTREMITIES: No edema. Non-tender. SKIN: No rashes or lesions. Warm. NEUROLOGIC: No focal neurological deficits. CN II-XII grossly intact PSYCHIATRIC: Cooperative. Appropriate mood and affect [facility] Medical History Lump of breast, left Lobular carcinoma in situ (LCIS) of right breast Osteoarthritis of right hip Osteoarthritis High cholesterol Surgical History History of right hip replacement Hx of colonoscopy (~08/17/16) History of delivery Hx of cholecystectomy History of nasal surgery History of breast surgery Tubal ligation status Family History Maternal Aunt Breast CA Social History Household Members: Family Housing: House Are you a primary animal daycare provider to a significant other at home: No Do you presently have visiting nurse or other home services: No 75 years or older and lives alone: No Alcohol intake: never Comment: aware of trip hazard Patient Tobacco Use Status: Never used Tobacco e-Cigarette/Vaping Use: Never Used service: No Current occupational status: employed 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 1. Little interest or pleasure in doing things: not at all 2. Feeling down, depressed, or hopeless: not at all 3. Trouble falling or staying asleep, or sleeping too much: not at all 4. Feeling tired or having little energy: not at all 5. Poor appetite or overeating: not at all 6. Feeling bad about yourself - or that you are a failure or have let yourself or your family down: not at all 7. Trouble concentrating on things, such as reading the newspaper or watching television: not at all 8. Moving or speaking so slowly that other people could have noticed. Or the opposite - being so fidgety or restless that you have been moving around a lot more than usual: not at all 9. Thoughts that you would be better off or of hurting yourself in some way: not at all Total score: 0 Source: Developed by Drs. Landon Max, Arik Burnett and colleagues, with an educational konrad from [employer]. Thrive Questionnaire Date Thrive assessed: 12/31/24 I am a: Patient Within the past 12 months, did the food you bought not last and you didn't have the money to get more?: Never true Within the past 12 months, did you worry whether your food would run out before you got money to buy more?: Never true Do you have trouble paying for medicines?: No Do you have trouble getting transportation to medical appointments?: No Do you have trouble paying your heating and electricity bill?: No Do you have trouble taking care of your child, family member or friend?: No Do you have trouble with day-to-day activities such as bathing, preparing meals, shopping, managing finances, etc.?: No Are you currently unemployed and looking for a job?: No Are you interested in more education?: No THRIVE Score: 0 AUDIT C Alcohol Use Questionnaire (AUDIT-C) 1. How often do you have a drink containing alcohol?: Never 3. How often do you have six or more drinks on one occasion?: Never Total Score: 0 KAYLENE-7 AMB Questionnaire KAYLENE-7 Date KAYLENE - 7 assessed: 12/31/24 Feeling nervous, anxious, or on edge: 0 = Not at all Not being able to stop or control worryin = Not at all Worrying too much about different things: 0 = Not at all Trouble relaxin = Not at all Being so restless that it is hard to sit still: 0 = Not at all Becoming easily annoyed or irritable: 0 = Not at all Feeling afraid as if something awful might happen: 0 = Not at all Total KAYLENE-7 score (0-4 normal; 5-9 mild; 10-14 moderate; 15-21 severe): 0 Source: Developed by Drs. Landon Max, Arik Burnett and colleagues, with an educational konrad from [employer]. Physical exam (Primary Care) Vital Signs: Last Vital Signs Temp 97.6 F 12/31/24 08:47 Pulse 88 12/31/24 08:47 BP 140/80 H 12/31/24 08:47 Pulse Ox 97 12/31/24 08:47 Oxygen Delivery Method Room Air 12/31/24 08:47 BMI result Body Mass Index 34.2 Tobacco/Smoking Status: Tobacco use Status Tobacco use date assessed 12/31/24 12/31/24 08:48 Patient Tobacco Use Status Never used Tobacco 12/31/24 08:48 e-Cigarette/Vaping Use Never Used 12/31/24 08:56 PHQ-9: PHQ-9 Score PHQ-9: Total score 0 12/31/24 08:48 Thrive Assessment: Date of Thrive Assessment Date Thrive assessed 12/31/24 12/31/24 08:48 Coding Level of Care Code Est Pt Level 4 (82384) Diagnoses Hyperlipidemia, unspecified hyperlipidemia type E78.5 Hyperlipidemia type: unspecified Mass of left breast, unspecified quadrant N63.20 Breast mass location: unspecified quadrant Assessment & Plan Assessment & Plan (1) Hyperlipidemia: Code(s): E78.5 - Hyperlipidemia, unspecified Category: Medical Qualifiers: Hyperlipidemia type: unspecified Qualified Code(s): E78.5 - Hyperlipidemia, unspecified (2) Lump of breast, left: Code(s): N63.20 - Unspecified lump in the left breast, unspecified quadrant Category: Medical Qualifiers: Breast mass location: unspecified quadrant Qualified Code(s): N63.20 - Unspecified lump in the left breast, unspecified quadrant Plan Hyperlipidemia-due for labs Shingles-improving pain Left breast lesion-Has appropriate follow up scheduled Orders: Orders Comprehensive Met. Panel 6 Months E78.5 - Hyperlipidemia, unspecified, N63.20 - Unspecified lump in the left breast, unspecified quadrant, R10.84 - Generalized abdominal pain, Z13.228 - Encounter for screening for other metabolic disorders, Z96.641 - Presence of right artificial hip joint TSH reflex Free T4 6 Months E78.5 - Hyperlipidemia, unspecified, N63.20 - Unspecified lump in the left breast, unspecified quadrant, R10.84 - Generalized abdominal pain, Z13.228 - Encounter for screening for other metabolic disorders, Z96.641 - Presence of right artificial hip joint Complete Blood Count Auto Diff 6 Months E78.5 - Hyperlipidemia, unspecified, N63.20 - Unspecified lump in the left breast, unspecified quadrant, R10.84 - Generalized abdominal pain, Z13.228 - Encounter for screening for other metabolic disorders, Z96.641 - Presence of right artificial hip joint Lipid Panel 6 Months E78.5 - Hyperlipidemia, unspecified, R10.84 - Generalized abdominal pain, Z13.228 - Encounter for screening for other metabolic disorders
[2024-12-31 08:47] VITALS: BP 140/80; PULSE 88; TEMP 36.4; O2SAT 97; BMI 34.2
== END 2024-12-31 09:18 | disposition home or self-care (01) ==
LOC: HO.HMCHD 08:44
PROVIDERS: PCP Internal Medicine; Visit Provider Internal Medicine
DX: E78.5 Hyperlipidemia, unspecified (principal); N63.23 Unspecified lump in the left breast, lower outer quadrant

== ENCOUNTER 2025-01-08 09:34 | Outpatient (AMB) | payer MEDICARE, SELFPAY ==
--- NOTE | 2025-01-08 09:47 | A.OFFVIS_ITS ---
Vital Signs 01/08/25 09:52 Height 5 ft 2 in Weight 185 lb 3.013 oz BMI 33.9 BP 175/84 H Blood Pressure Location Lt brachial Position Sitting Pulse 97 Intake Visit Reasons: s/p Biopsy results Intake Note: Patient is seen in office for ultrasound biopsy RESULTS left breast retroareolar mass. Pt c/o: denies any concerns, here for results Lead Data Architect Required: No Accompanied by: Self / Same As Patient Allergies No Known Allergies Allergy (Verified 01/08/25 09:52) Medication List - Last Reconciled 01/08/25 by Adalberto Hall MD cetirizine (Zyrtec) 10 mg PO DAILY PRN cholecalciferol (vitamin D3) 10 mcg PO DAILY meclizine 25 mg PO BID PRN simvastatin 40 mg PO DAILY HPI Comments Details: 69-year-old female patient returning 1 week following a left breast ultrasound- guided core biopsy. She has a prior history of a right breast lobular carcinoma in-situ approximately 11 years ago. She underwent lumpectomy but did not undergo any further adjuvant treatment. Her family history is significant for an aunt with breast cancer. Her mom at the age of 56 of unknown causes. Patient is , menarche at the age of 14 and menopause at 51. She breastfed her 4 children. She recently had an episode of shingles now feels much improved. She underwent ultrasound-guided core biopsy 1 week ago and the pathology revealed benign breast tissue with no evidence of atypia or malignancy. She tolerated the procedure well and denies any ongoing breast symptoms. [facility] Medical History Lump of breast, left Lobular carcinoma in situ (LCIS) of right breast Osteoarthritis of right hip Osteoarthritis High cholesterol Surgical History History of right hip replacement Hx of colonoscopy (~08/17/16) History of delivery Hx of cholecystectomy History of nasal surgery History of breast surgery Tubal ligation status Family History Maternal Aunt Breast CA Social History Household Members: Family Housing: House Are you a primary skin care consultant to a significant other at home: No Do you presently have visiting nurse or other home services: No 75 years or older and lives alone: No Alcohol intake: never Comment: aware of trip hazard Patient Tobacco Use Status: Never used Tobacco e-Cigarette/Vaping Use: Never Used service: No Current occupational status: employed 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 [employer] Sexual orientation: Straight/Heterosexual Gender identity: Female Cognitive needs: No Hearing needs: No Vision needs: Yes (rx glasses) Female Reproductive History Menstrual Age of Menarche: 12 Review of Systems Const All systems reviewed & are unremarkable except as noted in HPI and below Physical Exam Vital Signs: Last Vital Signs Pulse 97 01/08/25 09:52 BP 175/84 H 01/08/25 09:52 BMI result Body Mass Index 33.9 Const General: cooperative and no acute distress Nutritional Appearance: well nourished Orientation/consciousness: patient oriented x3 Limitations: no limitations HEENT Head: Yes normocephalic and Yes atraumatic Ears: hearing grossly normal bilaterally Chest Other: Exam deferred Resp Effort & Inspection: normal respiratory effort, no audible wheezes, no cough and no respiratory distress Cardio Jugular venous distension: no JVD GI Inspection: Yes normal to inspection Skin Other: Warm, dry, no rash Neuro Other: Mobility Assessment: 1. 3 meter assessment time (seconds): 5 2. Gait observations: Normal balance and gait General: patient oriented x3 Extrem General: Yes no clubbing, cyanosis or edema Assessment & Plan Assessment & Plan (1) Breast neoplasm, Tis (LCIS): Code(s): D05.00 - Lobular carcinoma in situ of unspecified breast Category: Medical (2) Abnormal ultrasound of breast: Code(s): R92.8 - Other abnormal and inconclusive findings on diagnostic imaging of breast Category: Medical (3) At high risk for breast cancer: Code(s): Z91.89 - Other specified personal risk factors, not elsewhere classified Category: Medical Plan 69-year-old female patient returning 1 week following ultrasound-guided core biopsy left breast lesion. This revealed benign breast tissue with no atypia or malignancy. No papilloma was identified. She does have a prior history of LCIS placing her at high risk for breast cancer. I suggested obtaining MRI of the breast due to her high-risk status. She expressed understanding and agrees with the plan. I recommended also follow-up examination in 6 months. She should call sooner for any new concerns. Orders: Orders MR breast BI wo/w con 3 Months D05.00 - Lobular carcinoma in situ of unspecified breast Coding Level of Care Code Est Pt Level 3 (36061) Diagnoses Breast neoplasm, Tis (LCIS) D05.00 Abnormal ultrasound of breast R92.8 At high risk for breast cancer Z91.89
[2025-01-08 09:52] VITALS: BP 175/84; PULSE 97; BMI 33.9
== END 2025-01-08 10:05 | disposition home or self-care (01) ==
LOC: HO.HGS 09:35
PROVIDERS: PCP Internal Medicine; Visit Provider Surgery
DX: D05.00 Lobular carcinoma in situ of unspecified breast (principal); R92.8 Other abnormal and inconclusive findings on diagnostic imaging of breast; Z91.89 Other specified personal risk factors, not elsewhere classified
CPT/HCPCS: 99213

== ENCOUNTER → 2025-01-08 09:34 | Outpatient (BNVA) | payer MEDICARE, SELFPAY | PROVIDERS: PCP Internal Medicine; Visit Provider Surgery | DX: D05.00 Lobular carcinoma in situ of unspecified breast (principal); R92.8 Other abnormal and inconclusive findings on diagnostic imaging of breast; Z91.89 Other specified personal risk factors, not elsewhere classified | CPT/HCPCS: 99212 ==

== ENCOUNTER 2025-02-01 09:15 | Outpatient (AMB) | payer MEDICARE, SELFPAY ==
--- OUTSIDE RECORDS SUMMARY | 2025-02-01 09:26 | XMS_ITS | Patient Health Record ---
Author Organization [facility] Address [address] [place] [address] Care Team Providers Care Prep Cook Name Role Phone Mary Alejo M.D. Primary Care Provider [place] Landon Maier Unavailable [phone] Reason For Referral No Information Medications Medication SIG (Take, Route, Fr equency, Duration) Notes Start Date End Date Status Simvastatin 40 MG 1 tablet in the even ing Orally Once a day Active Problems Problem Type SNOMED Code ICD Code Onset Dates Problem Status W/U Status Risk Notes Problem 407691706 Encounter for screening for malignant neoplasm of colon (Z12.11) Active confirmed Problem Screening for malignant neoplasm of rectum (237862145) Encounter for screening for malignant neoplasm of rectum (Z12.12) Active confirmed Problem 73463490 Preprocedural examination (Z01.818) Active confirmed Plan Of Treatment Future Test Test Name Order Date COLONOSCOPY 05/23/2016 Next Appt Details Provider Name:Landon Domínguez , 04/01/2025 09:40:00 AM, [address] [place] [address], [address], [place], [address], Insurance Providers Payer Name Payer Address Payer Phone Subscriber Number Group Number Insured Name Patient Relationship to Insured Coverage Start Date Coverage End Date [facility] [address] [facility] [phone] [id number] CRISS DEUTSCH Self - patient is the insured Medical (General) History Medical History History ICD Code Screening colonoscopy 11/2006--hyperplast ic polyps Hyperlipidemia Denies HI,DM,CVA,Lung disease,renal dise ase Surgical History Surgery Date(Month/Year) Cholecystectomy 04/2016 4 C-sections Breast surgey for nipple discharge--
[2025-02-01 09:32] VITALS: BP 130/90; PULSE 87; O2SAT 96
--- NOTE | 2025-02-01 09:32 | AM.OFFWIN_ITS ---
Intake Vital Signs 3 02/01/25 09:32 Weight 187 lb BP 130/90 H Blood Pressure Location Rt brachial Position Sitting Pulse 87 Pulse Source Pulse Oximeter Pulse Oximetry (%) 96 Oxygen Delivery Method Room Air Intake Visit Reasons: EP concerning spot above lt ankle Intake Note: Patient here for spot on left ankle that has not been there long but has not gone away. Patient Tobacco Use Status: Never used Tobacco Allergies No Known Allergies Allergy (Verified 02/01/25 09:40) Do you need a note to return to daycare/school/sports/work: No HPI HPI Comments 2 History of Present Illness0 Details 69 y/o Female patient who presents to [facility] walk in clinic with c/o a small patch of redness on left Ankle. She noticed the area Saturday. Denies injury or trauma to the extremities. Denies pain or tenderness around the area. [facility] Medical History (Updated 02/01/25 @ 10:14 by Carla Monroe NP) Lesion of bone of lower leg Lump of breast, left Lobular carcinoma in situ (LCIS) of right breast Osteoarthritis of right hip Osteoarthritis High cholesterol Surgical History History of right hip replacement Hx of colonoscopy (~08/17/16) History of delivery Hx of cholecystectomy History of nasal surgery History of breast surgery Tubal ligation status Family History Maternal Aunt Breast CA Social History Household Members: Family Housing: House Are you a primary pet care attendant to a significant other at home: No Do you presently have visiting nurse or other home services: No 75 years or older and lives alone: No Alcohol intake: never Comment: aware of trip hazard Patient Tobacco Use Status: Never used Tobacco e-Cigarette/Vaping Use: Never Used service: No Current occupational status: employed 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[employer] Sexual orientation: Straight/Heterosexual Gender identity: Female Cognitive needs: No Hearing needs: No Vision needs: Yes (rx glasses) Female Reproductive History Menstrual Age of Menarche: 12 Review of Systems Const All systems reviewed & are unremarkable except as noted in HPI and below Physical Exam Vital Signs: Last Vital Signs Pulse 87 02/01/25 09:32 BP 130/90 H 02/01/25 09:32 Pulse Ox 96 02/01/25 09:32 Oxygen Delivery Method Room Air 02/01/25 09:32 Const General: comfortable and no acute distress Nutritional Appearance: obese Orientation/consciousness: patient oriented x3 Neuro General: patient oriented x3, gait normal and moves all extremities Extrem General: Yes full ROM and Yes capillary refill normal Ankle/foot/toe images: 2 1. Small Area of redness, skin blanching. No TTP. Psych Speech and movement: Normal speech and movement present Assessment & Plan Assessment & Plan (1) Lesion of bone of lower leg: Code(s): M89.9 - Disorder of bone, unspecified Plan: No clear etiology at this time. Will continue to monitor for changes. Coding Level of Care Code Est Pt Level 4 (06968) Diagnoses Lesion of bone of lower leg M89.9 Time Spent (min) 20
== END 2025-02-01 10:12 | disposition home or self-care (01) ==
PROVIDERS: PCP Internal Medicine; Visit Provider Nurse Practitioner Family
DX: M89.9 Disorder of bone, unspecified (principal)

== ENCOUNTER → 2025-02-01 09:15 | Outpatient (BNVA) | payer MEDICARE, SELFPAY | PROVIDERS: PCP Internal Medicine; Visit Provider Nurse Practitioner Family | DX: M89.9 Disorder of bone, unspecified (principal) | CPT/HCPCS: 99212 ==

== ENCOUNTER → 2025-03-11 10:05 | Outpatient (BNV) | payer MEDICARE, SELFPAY | PROVIDERS: PCP Internal Medicine; Visit Provider Internal Medicine | DX: R92.323 Mammographic fibroglandular density, bilateral breasts (principal) | CPT/HCPCS: 77049 ==

== ENCOUNTER 2025-03-11 10:17 | Outpatient (REF) | payer MEDICARE, SELFPAY ==
--- NOTE | ~2025-03-11 | MR_ITS ---
EXAMINATION: MR BREAST WITHOUT AND WITH CONTRAST, BILATERAL CLINICAL INFORMATION: History of right breast LCIS in 2012. Recent benign left breast needle core biopsy. COMPARISON: Comparison is made with relevant prior imaging. TECHNIQUE: MR imaging of the breasts was performed using T1, T2 and fat saturated techniques. Dynamic multiphase imaging was also performed after administration of intravenous gadolinium contrast agent. Computer generated 3D reconstruction and enhancement kinetic analysis was utilized by the radiologist in the interpretation of this examination. FINDINGS: Breast composition: There is heterogeneous fibroglandular breast tissue with marked background enhancement. LEFT BREAST: No suspicious enhancing masses or areas of non mass enhancement. No axillary or internal mammary adenopathy. RIGHT BREAST: No suspicious enhancing masses or areas of non mass enhancement. No axillary or internal mammary adenopathy. Limited views of the chest and abdomen are unremarkable. MR/MR breast BI wo/w con IMPRESSION: No MR specific evidence of malignancy. ASSESSMENT: LEFT BREAST: BI-RADS 2 benign. RIGHT BREAST: BI-RADS 1-Negative RECOMMENDATIONS: Yearly screening mammography Yearly Breast MRI screening surveillance. Electronically signed by: Steph Styles DO 03/12/2025 05:39 PM EDT
[2025-03-11] MEDS: gadobutroL 10 ML VIAL IVPUSH (11:47)
--- OUTSIDE RECORDS SUMMARY | 2025-03-11 11:52 | XMS_ITS | Patient Health Record ---
Author Organization [facility] Address [address] [place] [address] Care Team Providers Care Logistics Coordinator Name Role Phone Mary Alejo M.D. Primary Care Provider [place] Landon Maier Unavailable [phone] Reason For Referral No Information Medications Medication SIG (Take, Route, Fr equency, Duration) Notes Start Date End Date Status Simvastatin 40 MG 1 tablet in the even ing Orally Once a day Active Problems Problem Type SNOMED Code ICD Code Onset Dates Problem Status W/U Status Risk Notes Problem 415308494 Encounter for screening for malignant neoplasm of colon (Z12.11) Active confirmed Problem Encounter for screening for malignant neoplasm of rectum (Z12.12) Active confirmed Problem 60835852 Preprocedural examination (Z01.818) Active confirmed Plan Of Treatment Future Test Test Name Order Date COLONOSCOPY 05/23/2016 Next Appt Details Provider Name:Landon Barbosa Domínguez , 04/01/2025 09:40:00 AM, [address], [address], [place], [address], Insurance Providers Payer Name Payer Address Payer Phone Subscriber Number Group Number Insured Name Patient Relationship to Insured Coverage Start Date Coverage End Date [facility] [address] [place] [phone] [id number] CRISS DEUTSCH Self - patient is the insured Medical (General) History Medical History History ICD Code Screening colonoscopy 11/2006--hyperplast ic polyps Hyperlipidemia Denies GA,DM,CVA,Lung disease,renal dise ase Surgical History Surgery Date(Month/Year) Cholecystectomy 04/2016 4 C-sections Breast surgey for nipple discharge--
== END 2025-03-11 10:18 | disposition home or self-care (01) ==
LOC: HO.MRI 10:17
PROVIDERS: PCP Internal Medicine
DX: Z86.000 Personal history of in-situ neoplasm of breast (principal)
CPT/HCPCS: 77049; A9585

== ENCOUNTER 2025-07-01 09:04 | Outpatient (AMB) | payer MEDICARE, SELFPAY ==
[2025-07-01 08:53] VITALS: BP 130/84; PULSE 88; TEMP 36.7; O2SAT 97; BMI 34.8
--- NOTE | 2025-07-01 08:53 | MHC.PC.OV ---
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 Required: No Accompanied by: Self / Same As Patient Allergies No Known Allergies Allergy (Verified 07/01/25 08:54) Medication List - Last Reconciled 07/13/25 by BONITA Graham amoxicillin 2,000 mg (4 x 500 mg) PO ONCE 1 day cetirizine (Zyrtec) 10 mg PO DAILY PRN cholecalciferol (vitamin D3) 10 mcg PO DAILY meclizine 25 mg PO BID PRN simvastatin 40 mg PO DAILY tirzepatide (weight loss) (Zepbound) 2.5 mg (0.5 mL) subcut QWEEK Tobacco use date assessed: 07/01/25 Fall risk assessment: No Falls in past year Last assessed Fall Risk: 07/01/25 Dental Screening Dental Screen Date: 07/01/25 Did you have a dental visit in the last 12 months?: Yes Did you have a dental problem in the last 6 months where you did not have access to dental care?: No HPI HPI Comments History of Present Illness Details The patient is a 69-year-old female with HLD, low vitamin D, AR, Obesity and vertigo presenting with a wellness check and discussion of preventative care measures. The patient has a history of hyperlipidemia, for which she is currently taking simvastatin. She also experiences allergic rhinitis and takes Zyrtec as needed. The patient has been diagnosed with vitamin D deficiency and is on vitamin D supplementation. She reports episodes of dizziness, for which she uses meclizine as needed. In November, the patient had an episode of herpes zoster, which was diagnosed in the ER. She was advised to receive the shingles vaccine, Shingrix, which consists of two doses. The patient underwent a bone density scan in 2022, which showed slight thinning in one area, indicating osteopenia. She is due for a follow-up scan in a year. The patient reports occasional constipation, which she manages by increasing her fluid intake. Preventative care measures discussed include a mammogram,done in December 2024, which was normal, and a colonoscopy scheduled for next year. Her last Pap smear was in 2020, and she is due for another one soon. Patient was informed and verbally consented to the use of an ambient scribe for clinic note documentation during this visit. [facility] Medical History (Updated 07/13/25 @ 18:26 by BONITA Graham) High cholesterol Lesion of bone of lower leg Lobular carcinoma in situ (LCIS) of right breast Low vitamin D level Lump of breast, left Obesity (BMI 30.0-34.9) Osteoarthritis Osteoarthritis of right hip Surgical History History of breast surgery History of delivery History of nasal surgery History of right hip replacement Hx of cholecystectomy Hx of colonoscopy (~08/17/16) Tubal ligation status Family History (Updated 07/01/25 @ 09:21 by Fang Gutierrez MA) Maternal Aunt Breast CA Mother No problems noted. Father No problems noted. 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 1. Little interest or pleasure in doing things: not at all 2. Feeling down, depressed, or hopeless: not at all 3. Trouble falling or staying asleep, or sleeping too much: not at all 4. Feeling tired or having little energy: not at all 5. Poor appetite or overeating: not at all 6. Feeling bad about yourself - or that you are a failure or have let yourself or your family down: not at all 7. Trouble concentrating on things, such as reading the newspaper or watching television: not at all 8. Moving or speaking so slowly that other people could have noticed. Or the opposite - being so fidgety or restless that you have been moving around a lot more than usual: not at all 9. Thoughts that you would be better off or of hurting yourself in some way: not at all Total score: 0 Depression Screening Interpretation: Negative Depression Screening Done: Yes Source: Developed by Drs. Landon Max, Prerna Phillip, Arik Mehta and colleagues, with an educational konrad from [employer]. Thrive Questionnaire Date Thrive assessed: 07/01/25 I am a: Patient Within the past 12 months, did the food you bought not last and you didn't have the money to get more?: Never true Within the past 12 months, did you worry whether your food would run out before you got money to buy more?: Never true Do you have trouble paying for medicines?: No Do you have trouble getting transportation to medical appointments?: No Do you have trouble paying your heating and electricity bill?: No Do you have trouble taking care of your child, family member or friend?: No Do you have trouble with day-to-day activities such as bathing, preparing meals, shopping, managing finances, etc.?: No Are you currently unemployed and looking for a job?: No Are you interested in more education?: No THRIVE Score: 0 AUDIT C Alcohol Use Questionnaire (AUDIT-C) 1. How often do you have a drink containing alcohol?: Never 3. How often do you have six or more drinks on one occasion?: Never Total Score: 0 KAYLENE-7 AMB Questionnaire KAYLENE-7 Date KAYLENE - 7 assessed: 07/01/25 Feeling nervous, anxious, or on edge: 0 = Not at all Not being able to stop or control worryin = Not at all Worrying too much about different things: 0 = Not at all Trouble relaxin = Not at all Being so restless that it is hard to sit still: 0 = Not at all Becoming easily annoyed or irritable: 0 = Not at all Feeling afraid as if something awful might happen: 0 = Not at all Total KAYLENE-7 score (0-4 normal; 5-9 mild; 10-14 moderate; 15-21 severe): 0 Source: Developed by Drs. Landon Max, Prerna Phillip, Arik Mehta and colleagues, with an educational konrad from [employer]. Review of Systems Const Details: CONSTITUTIONAL Negative HEAD/NECK Negative EAR/NOSE/MOUTH/THROAT Negative RESPIRATORY Denies cough, wheezing CARDIOVASCULAR Denies chest pain, dyspnea GASTROINTESTINAL Reports occasional constipation; denies diarrhea, heartburn MUSCULOSKELETAL Denies back pain, joint pain post-hip replacement NEUROLOGICAL Reports dizziness; denies headaches PSYCHIATRIC Negative Physical exam (Primary Care) Vital Signs: Last Vital Signs Temp 98.1 F 07/01/25 08:53 Pulse 88 07/01/25 08:53 BP 130/84 07/01/25 08:53 Pulse Ox 97 07/01/25 08:53 Oxygen Delivery Method Room Air 07/01/25 08:53 BMI result Body Mass Index 34.8 GENERAL Well developed, obese, in no apparent distress HEENT Head-Normocephalic Eyes- PERRLA, EOMI, Conjuctiva clear, lids WNL Ears- Canals clear, TMs WNL Mouth/Throat-No lesions, no erythema, no exudate Neck- Supple, No lymphadenopathy, thyroid WNL RESPIRATORY Normal I:E, Clear to auscultation CARDIOVASCULAR Regular, rate and rhythm, No murmurs or rubs GASTROINTESTINAL Soft, nontender, normal bowel sounds, no masses MUSCULOSKELETAL Back- nontender Joints- no swelling or deformity NEUROLOGICAL Gait normal PSYCHIATRIC Oriented to person, place and time Mood and affect WNL Appearance WNL Speech WNL Thought processes WNL Tobacco/Smoking Status: Tobacco use Status Tobacco use date assessed 07/01/25 07/01/25 08:55 Patient Tobacco Use Status Never used Tobacco 07/01/25 08:53 e-Cigarette/Vaping Use Never Used 07/01/25 08:53 PHQ-9: PHQ-9 Score PHQ-9: Total score 0 07/01/25 09:51 Depression Screening Interpretation: Negative Thrive Assessment: Date of Thrive Assessment Date Thrive assessed 07/01/25 07/01/25 08:55 Coding Level of Care Code Established Pt Est Pt Level 4 (63325) Patient Type Established Diagnoses Hyperlipidemia, unspecified hyperlipidemia type E78.5 Hyperlipidemia type: unspecified Low vitamin D level R79.89 Herpes zoster without complication B02.9 Herpes zoster complications: without complications Obesity (BMI 30.0-34.9) E66.9 Time Spent (min) 30 Comment Time was spent on chart review, medication reconciliation, H&P, patient education, orders Assessment & Plan Assessment & Plan (1) Hyperlipidemia: Code(s): E78.5 - Hyperlipidemia, unspecified Category: Medical Qualifiers: Hyperlipidemia type: unspecified Qualified Code(s): E78.5 - Hyperlipidemia, unspecified Plan: The patient is currently on simvastatin for hyperlipidemia management. A follow-up cholesterol test is recommended to assess current levels. Patient will continue current medications. Will monitor. Patient will follow up in 2 months. (2) Low vitamin D level: Code(s): R79.89 - Other specified abnormal findings of blood chemistry Category: Medical Plan: Will get labs. Patient will continue current medications. Will monitor. Patient will follow up in 2 months. (3) Shingles: Code(s): B02.9 - Zoster without complications Category: Medical Qualifiers: Herpes zoster complications: without complications Qualified Code(s): B02.9 - Zoster without complications Plan: The patient experienced herpes zoster in November 2022, confirmed by a CAT scan. Shingrix vaccination is recommended to prevent recurrence. (4) Obesity (BMI 30.0-34.9): Comment: BMI today 34.8 Code(s): E66.9 - Obesity, unspecified Category: Medical Plan: Discussed the health risks of obesity with the patient. Reviewed benefits of even moderate weight loss with the patient. Patient will gradually try and increase exercise to 30-40 min 5-7 times per week. We discussed the patient adding more fruits and vegetables to their diet. Will monitor weight and follow up in 2 months. Will request Zepbound to assist with weight loss. Plan During the visit, I discussed the importance of managing hyperlipidemia with simvastatin and the need for a follow-up cholesterol test. We reviewed the patient's history of herpes zoster and recommended the Shingrix vaccine to prevent recurrence. I advised on the importance of regular bone density scans due to osteopenia and scheduled a follow-up in a year. Preventative care measures were emphasized, including scheduling a colonoscopy, updating vaccinations, and planning for a Pap smear. Orders: Orders Lipid Panel 07/01/25 E78.5 - Hyperlipidemia, unspecified Vitamin D 25-OH Total 07/01/25 R79.89 - Other specified abnormal findings of blood chemistry Medications: New simvastatin 40 mg PO DAILY 90 tabs 3RF for cholesterol tirzepatide (weight loss) (Zepbound) for 4 weeks 2.5 mg (0.5 mL) subcut QWEEK 2 mL 1RF for weight loss Patient Instructions: - Continue taking simvastatin as prescribed for cholesterol management. - Schedule a cholesterol test to monitor levels. - Arrange for Shingrix vaccination to prevent shingles recurrence. - Plan for a follow-up bone density scan in a year. - Schedule a colonoscopy for November 2023. - Update flu vaccination as recommended. - Plan for a Pap smear soon, as the last one was in 2020.
--- OUTSIDE RECORDS SUMMARY | 2025-07-01 10:08 | XMS_ITS | Patient Health Record ---
Author Organization [facility] Address [address] [place] [address] Care Team Providers Care Make Up Editor Name Role Phone Mary Alejo M.D. Primary Care Provider Unavail Landon Maier Unavailable [phone] Allergies No Known Allergies Reason For Referral No Information Medications Medication SIG (Take, Route, Fr equency, Duration) Notes Start Date End Date Status Vitamin D3 1000 UNIT 3 capsule Active Simvastatin 40 MG 1 tablet in the even ing Orally Once a day Active Problems Problem Type SNOMED Code ICD Code Onset Dates Problem Status W/U Status Risk Notes Problem Screening for malignant neoplasm of colon (501947691) Encounter for screening for malignant neoplasm of colon (Z12.11) Active confirmed Problem Screening for malignant neoplasm of rectum (148474104) Encounter for screening for malignant neoplasm of rectum (Z12.12) Active confirmed Problem Preprocedural examination (800416231471923) Preprocedural examination (Z01.818) Active confirmed Vital Signs Heart Rate 80 /min 04/01/2025 Temperature 98.798.7 degrees Fahrenheit 04/01/2025 Blood pressure diastolic 001 mm Hg 04/01/2025 Height 62 in 04/01/2025 Blood pressure systolic 01 mm Hg 04/01/2025 Weight 190 lbs 04/01/2025 BMI 34.75 kg/m2 04/01/2025 Encounters Encounter Location Date Provider Diagnosis [facility] [address] [place] [id number] 04/01/2025 Landon Domínguez Encounter for screen ing [...] 05/23/2016 Next Appt Details Provider Name:Landon Barbosa Sang , 07/19/2025 07:30:00 AM, 5 [facility] , [place], [place], [id number], Insurance Providers Payer Name Payer Address Payer Phone Subscriber Number Group Number Insured Name Patient Relationship to Insured Coverage Start Date Coverage End Date [facility] [address] [place] [phone] [id number] CRISS DEUTSCH Self - patient is the insured 4 Medical (General) History Medical History History ICD Code Screening colonoscopy 11/2006- hyperplast ic polyps Hyperlipidemia Denies OR,DM,CVA,Lung disease,renal dise ase Negative colonoscopy in 2016 but limited prep, 3 Hemoccults were negative that year as well Surgical History Surgery Date(Month/Year) RIGHT HIP REPLACEMENT 03/2024 Dr. Stevenson REMOVAL OF NASAL POLYPS Breast surgey for nipple discharge- 4 C-sections Cholecystectomy 04/2016 Hospitalization History Reason Date(Month/Year) SURGERY FOR HIP REPLACEMENT
== END 2025-07-01 09:48 | disposition home or self-care (01) ==
LOC: HO.HMCHD 09:04
PROVIDERS: PCP Internal Medicine; Visit Provider Physician Assistant Medical
DX: E78.5 Hyperlipidemia, unspecified (principal); R79.89 Other specified abnormal findings of blood chemistry; B02.9 Zoster without complications; E66.9 Obesity, unspecified

== ENCOUNTER → 2025-07-01 09:04 | Outpatient (BNVA) | payer MEDICARE, SELFPAY | PROVIDERS: PCP Internal Medicine; Visit Provider Physician Assistant Medical | DX: E78.5 Hyperlipidemia, unspecified (principal); R79.89 Other specified abnormal findings of blood chemistry; B02.9 Zoster without complications; E66.9 Obesity, unspecified; Z13.31 Encounter for screening for depression; Z13.39 Encounter for screening examination for other mental health and behavioral disorders | CPT/HCPCS: 96127; 99212 ==

== ENCOUNTER 2025-07-01 09:50 | Outpatient (REF) | payer MEDICARE, SELFPAY ==
[2025-07-01 11:21] LABS: Cholesterol 223 mg/dL (<200); HDL Cholesterol 61 mg/dL (>40); Triglycerides 118 mg/dL (<150)
== END 2025-07-01 09:51 | disposition home or self-care (01) ==
LOC: HO.10HDL 09:50
PROVIDERS: Visit Provider Physician Assistant Medical
DX: E55.9 Vitamin D deficiency, unspecified (principal); E78.5 Hyperlipidemia, unspecified
CPT/HCPCS: 36415; 80061; 82306

== ENCOUNTER 2025-07-15 10:27 | Outpatient (AMB) | payer MEDICARE, SELFPAY ==
--- NOTE | 2025-07-15 11:00 | A.OFFVIS_ITS ---
Vital Signs 07/15/25 11:05 Height 5 ft 2 in Weight 192 lb BMI 35.1 BP 145/69 H Blood Pressure Location Rt brachial Position Sitting Pulse 104 H Intake Visit Reasons: 6 month follow up, breast exam Intake Note: Patient here for 6mo breast exam. Patient c/o: no concerns. Reports no changes in medical hx since last visit. Denies breast lumps, tenderness, nipple discharge. 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 She underwent lumpectomy but did not undergo any further adjuvant treatment. Her family history is significant for an aunt with breast cancer. Her mom at the age of 56 of unknown causes. Patient is , menarche at the age of 14 and menopause at 51. She breastfed her 4 children. She underwent ultrasound-guided core biopsy for a palpable left breast mass on 12/31/24 and the pathology revealed benign breast tissue with no evidence of atypia or malignancy. Bilateral breast MRI was recommended and performed on 03/11/2025 which revealed no MR specific evidence of malignancy (left breast BI-RADS 2, right breast BI-RADS 1). Last bilateral screening mammogram 05/07/24 revealed no mammographic evidence of malignancy, BI-RADS 2. Yearly Breast MRI and mammogram screening surveillance recommended. She has no breast concerns today. She reports no changes in her personal or family history. [facility] Medical History (Updated 07/13/25 @ 18:26 by BONITA Graham) Obesity (BMI 30.0-34.9) Low vitamin D level Lesion of bone of lower leg Lump of breast, left Lobular carcinoma in situ (LCIS) of right breast Osteoarthritis of right hip Osteoarthritis High cholesterol Surgical History History of right hip replacement Hx of colonoscopy (~08/17/16) History of delivery Hx of cholecystectomy History of nasal surgery History of breast surgery Tubal ligation status Family History (Updated 07/01/25 @ 09:21 by Fang Gutierrez MA) Maternal Aunt Breast CA Mother No problems noted. Father No problems noted. 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 [email or web address] Sexual orientation: Straight/Heterosexual Gender identity: Female Cognitive needs: No Hearing needs: No Vision needs: Yes (rx glasses) Female Reproductive History Menstrual Age of Menarche: 12 Review of Systems Const All systems reviewed & are unremarkable except as noted in HPI and below Physical Exam Vital Signs: Last Vital Signs Pulse 104 H 07/15/25 11:05 BP 145/69 H 07/15/25 11:05 BMI result Body Mass Index 35.1 Const General: comfortable, no acute distress and alert Orientation/consciousness: patient oriented x3 Chest Other: Left breast: No skin change, no nipple retraction, no nipple discharge, previously palpable mass below the nipple areolar complex at approximately the 5-6 o'clock location is not appreciated, no enlarged lymph nodes Right breast: No skin change, no nipple retraction, no nipple discharge, no palpable mass, no enlarged lymph nodes, well-healed periareolar incision in the upper outer quadrant Resp Effort & Inspection: normal respiratory effort and able to speak in complete sentences Skin Other: warm and dry Neuro General: patient oriented x3 and moves all extremities Assessment & Plan Assessment & Plan (1) At high risk for breast cancer: Code(s): Z91.89 - Other specified personal risk factors, not elsewhere classified Category: Medical Plan 69-year-old female patient with prior history of LCIS placing her at high risk for breast cancer. Her most recent breast MRI February 2025 revealed no MR specific evidence of malignancy (left breast BI-RADS 2, right breast BI-RADS 1 and last bilateral screening mammogram April 2024 revealed revealed no suspicious findings (BI-RADS 2). She had also previously undergone ultrasound-guided core biopsy for a palpable left breast mass on 12/31/24 and the pathology revealed benign breast tissue with no evidence of atypia or malignancy. Examination today shows no suspicious findings in either breast, previous palpable left breast mass is no longer appreciated. Recommended continuing high-risk screening with yearly mammogram alternating every 6 months with breast MRI and she is to follow-up in 6 months for repeat breast examination. Her screening mammogram has been ordered for 3 months. She is to call sooner for any new concerns. Orders: Orders MM tomosynthesis screening BI 3 Months Z12.31 - Encounter for screening mammogram for malignant neoplasm of breast Coding Level of Care Code Est Pt Level 3 (41922) Diagnoses At high risk for breast cancer Z91.89
[2025-07-15 11:05] VITALS: BP 145/69; PULSE 104; BMI 35.1
--- OUTSIDE RECORDS SUMMARY | 2025-07-15 12:45 | XMS_ITS | Patient Health Record ---
Author Organization [facility] Address [address] [place] [address] Care Team Providers Care Manager Sql Name Role Phone Mary Alejo M.D. Primary Care Provider Unavail Landon Maier Unavailable [phone] Allergies No Known Allergies Reason For Referral [...] Problem Screening for malignant neoplasm of colon (371687651) Encounter for screening for malignant neoplasm of colon (Z12.11) Active confirmed Problem Screening for malignant neoplasm of rectum (110255762) Encounter for screening for malignant neoplasm of rectum (Z12.12) Active confirmed Problem Preprocedural examination (761353359118160) Preprocedural examination (Z01.818) Active confirmed Vital Signs Heart Rate 80 /min 04/01/2025 Temperature 98.798.7 degrees Fahrenheit 04/01/2025 Blood pressure diastolic 001 mm Hg 04/01/2025 Height 62 in 04/01/2025 Blood pressure systolic 01 mm Hg 04/01/2025 Weight 190 lbs 04/01/2025 BMI 34.75 kg/m2 04/01/2025 Encounters Encounter Location Date [facility] [address] [place] [phone] 04/01/2025 Landon Domínguez Encounter for screen ing [...] Barbosa Sang , 07/19/2025 07:30:00 AM, 5 [facility] , [place], [place], [id number], Insurance Providers Payer Name Payer Address Payer Phone Subscriber Number Group Number Insured Name Patient Relationship to Insured Coverage Start Date Coverage End Date [facility] [address] [place] [phone] [id number] CRISS DEUTSCH Self - patient is the insured 4 Medical (General) History Medical History History ICD Code Screening colonoscopy 11/2006- hyperplast ic polyps Hyperlipidemia Denies CO,DM,CVA,Lung disease,renal dise ase Negative colonoscopy in 2016 but limited prep, 3 Hemoccults were negative that year as well Surgical History Surgery Date(Month/Year) RIGHT HIP REPLACEMENT 03/2024 Dr. Stevenson REMOVAL OF NASAL POLYPS Breast surgey for nipple discharge- 4 C-sections Cholecystectomy 04/2016 Hospitalization History Reason Date(Month/Year) SURGERY FOR HIP REPLACEMENT
== END 2025-07-15 11:25 | disposition home or self-care (01) ==
LOC: HO.HGS 10:28
PROVIDERS: PCP Internal Medicine; Visit Provider Physician Assistant Surgical
DX: Z91.89 Other specified personal risk factors, not elsewhere classified (principal)
CPT/HCPCS: 99213

== ENCOUNTER → 2025-07-15 10:27 | Outpatient (BNVA) | payer MEDICARE, SELFPAY | PROVIDERS: PCP Internal Medicine; Visit Provider Physician Assistant Surgical | DX: Z91.89 Other specified personal risk factors, not elsewhere classified (principal) | CPT/HCPCS: 99212 ==

== ENCOUNTER 2025-07-19 06:13 | Day surgery (SDC) | payer MEDICARE, SELFPAY ==
--- OUTSIDE RECORDS SUMMARY | 2025-06-22 12:50 | XMS_ITS | Patient Health Record ---
Author Organization [facility] Address [address] [place] [address] Care Team Providers Care Classified Copy Control Clerk Name Role Phone Mary Alejo M.D. Primary Care Provider Unavail Landon Maier Unavailable [phone] Allergies No Known Allergies Reason For Referral No Information Medications Medication SIG (Take, Route, Fr equency, Duration) Notes Start Date End Date Status Vitamin D3 1000 UNIT 3 capsule Active Simvastatin 40 MG 1 tablet in the even ing Orally Once a day Active Problems Problem Type SNOMED Code ICD Code Onset Dates Problem Status W/U Status Risk Notes Problem [id number] Encounter for screening for malignant neoplasm of colon (Z12.11) Active confirmed Problem Screening for malignant neoplasm of rectum (026403584) Encounter for screening for malignant neoplasm of rectum (Z12.12) Active confirmed Problem 36873269 Preprocedural examination (Z01.818) Active confirmed Vital Signs Heart Rate 80 /min 04/01/2025 Temperature 98.798.7 degrees Fahrenheit 04/01/2025 Blood pressure diastolic 001 mm Hg 04/01/2025 Height 62 in 04/01/2025 Blood pressure systolic 01 mm Hg 04/01/2025 Weight 190 lbs 04/01/2025 BMI 34.75 kg/m2 04/01/2025 Encounters Encounter Location Date Provider Diagnosis [facility] [address] [place] [id number] 04/01/2025 Landon Domínguez Encounter for screen ing for malignant neoplasm of colon Z12.11 and Preprocedural examination Z01.818 Assessments Encounter Date Diagnosis (ICD Code) Assessment Notes Treatment Notes Treatment Clinical Notes Section Notes 04/01/2025 Encounter for screening for malignant neoplasm of colon (ICD-10 - Z12.11) Overall, Criss appears quite well. She is not having any new or worrisome GI complaints. I did recommend a follow-up colonoscopy for further screening purposes given her last exam approaching 9 years ago and the fact that the prep was not 100% . We did review the rationale for the colonoscopy in regard to colorectal cancer prevention. Full consent has been obtained for this, including risks of bleeding and perforation. The procedure will be done with monitored anesthesia care. She will do a 2-day prep for the procedure to hopefully allow for a better cleanout than last time. Criss was comfortable with this plan. Thank you again for allowing me to participate in Criss's care. I shall continue to keep you advised of her progress. 04/01/2025 Preprocedural examination (ICD-10 - Z01.818) Overall, Criss appears quite well. She is not having any new or worrisome GI complaints. I did recommend a follow-up colonoscopy for further screening purposes given her last exam approaching 9 years ago and the fact that the prep was not 100% . We did review the rationale for the colonoscopy in regard to colorectal cancer prevention. Full consent has been obtained for this, including risks of bleeding and perforation. The procedure will be done with monitored anesthesia care. She will do a 2-day prep for the procedure to hopefully allow for a better cleanout than last time. Criss was comfortable with this plan. Thank you again for allowing me to participate in Criss's care. I shall continue to keep you advised of her progress. Plan Of Treatment Pending Test Test Name Order Date Colonoscopy 04/01/2025 Future Test Test Name Order Date COLONOSCOPY 05/23/2016 Next Appt Details Provider Name:Landon Domínguez , 07/19/2025 07:30:00 AM, [address] , [place], [place], [phone], Insurance Providers Payer Name Payer Address Payer Phone Subscriber Number Group Number Insured Name Patient Relationship to Insured Coverage Start Date Coverage End Date [facility] [address] [place] [phone] [id number] CRISS DEUTSCH Self - patient is the insured 4 Medical (General) History Medical History History ICD Code Screening colonoscopy 11/2006- hyperplast ic polyps Hyperlipidemia Denies AL,DM,CVA,Lung disease,renal dise ase Negative colonoscopy in 2016 but limited prep, 3 Hemoccults were negative that year as well Surgical History Surgery Date(Month/Year) RIGHT HIP REPLACEMENT 03/2024 Dr. Stevenson REMOVAL OF NASAL POLYPS Breast surgey for nipple discharge- 4 C-sections Cholecystectomy 04/2016 Hospitalization History Reason Date(Month/Year) SURGERY FOR HIP REPLACEMENT
[2025-07-15 14:35] VITALS: BMI 34.7
[2025-07-19 06:35] VITALS: BMI 34.7
[2025-07-19 06:48] VITALS: BP 109/83; PULSE 108; RESP 16; TEMP 36.6; O2SAT 96
[2025-07-19 06:49] VITALS: PULSE 91
[2025-07-19] MEDS: Lactated Ringers 1,000 ML 100 ML IVCONT (07:02)
--- NOTE | 2025-07-19 07:27 | HO.ANESPROP2 ---
Documented by User: Pamela Lopez NP 07/15/25 10:15 HPI - Anesthesia Eval Consult details Narrative: 70yo F for Colonoscopy Anesthesia Pre-Procedure Meds Is the patient on any of the following meds?: GLP1/DPP4 PMFSH Active Problems Active Problems: All Active Problems Obesity (BMI 30.0-34.9) (Acute) Low vitamin D level (Acute) Lesion of bone of lower leg (Acute) At high risk for breast cancer (Acute) Breast neoplasm, Tis (LCIS) (Acute) Screening for metabolic disorder (Acute) Hyperlipidemia (Acute) Abnormal ultrasound of breast (Acute) Shingles (Acute) Abdominal pain (Acute) Colon cancer screening (Acute) Chronic constipation (Acute) Lump of breast, left (Acute) S/P total right hip arthroplasty (Acute ~04/08/24) 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 Father No problems noted. Family history of problems with anesthesia: No Surgical History Surgical History History of right hip replacement Hx of colonoscopy (~08/17/16) History of delivery Hx of cholecystectomy History of nasal surgery History of breast surgery Tubal ligation status History of Problems with Anesthesia: No Social History Social History Household Members: Family Housing: House Are you a primary workforce investment act career manager to a significant other at home: No Do you presently have visiting nurse or other home services: No Alcohol intake: never Comment: aware of trip hazard Patient Tobacco Use Status: Never used Tobacco e-Cigarette/Vaping Use: Never Used Use of substances other than those prescribed or required for medical reasons: No Are you DNR?: No Advance Directives: No Advance Directives Information Provided: Yes Patient : No : No service: No Current occupational status: employed 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[employer] Sexual orientation: Straight/Heterosexual Gender identity: Female Cognitive needs: No Hearing needs: No Vision needs: Yes (rx glasses) Meds Allergies Allergy/AdvReac Type Severity Reaction Status Date / Time No Known Allergies Allergy Verified 07/15/25 11:01 Home Medications ?Medication ?Instructions ?Recorded ?Confirmed ?Last Taken ?Type cholecalciferol (vitamin D3) 25 75 mcg PO DAILY 07/15/25 07/15/25 Unknown History mcg (1,000 unit) tablet (Vitamin D3) Assessment and Plan Assessment Anesthesia Assessment: Chart Reviewed Final Anesthetic Review Family History of Problems with Anesthesia: No History of Problems with Anesthesia: No Documented by User: Anni Barber DO 07/19/25 07:28 HPI - Anesthesia Eval Anesthesia Pre-Procedure Meds Is the patient on any of the following meds?: GLP1/DPP4 PMFSH Past Medical History Medical History (Updated 07/13/25 @ 18:26 by BONITA Graham) Obesity (BMI 30.0-34.9) Low vitamin D level Lesion of bone of lower leg Lump of breast, left Lobular carcinoma in situ (LCIS) of right breast Osteoarthritis of right hip Osteoarthritis High cholesterol Family History Family History (Updated 07/01/25 @ 09:21 by Fang Gutierrez MA) Maternal Aunt Breast CA Mother No problems noted. Father No problems noted. Family history of problems with anesthesia: No Surgical History Surgical History History of right hip replacement Hx of colonoscopy (~08/17/16) History of delivery Hx of cholecystectomy History of nasal surgery History of breast surgery Tubal ligation status History of Problems with Anesthesia: No Social History Social History Household Members: Family Housing: House Are you a primary workforce investment act career manager to a significant other at home: No Do you presently have visiting nurse or other home services: No Alcohol intake: never Comment: aware of trip hazard Patient Tobacco Use Status: Never used Tobacco e-Cigarette/Vaping Use: Never Used Use of substances other than those prescribed or required for medical reasons: No Are you DNR?: No Advance Directives: No Advance Directives Information Provided: Yes Patient : No : No service: No Current occupational status: employed 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[employer] Sexual orientation: Straight/Heterosexual Gender identity: Female Cognitive needs: No Hearing needs: No Vision needs: Yes (rx glasses) Meds Allergies Allergy/AdvReac Type Severity Reaction Status Date / Time No Known Allergies Allergy Verified 07/15/25 11:01 Home Medications ?Medication ?Instructions ?Recorded ?Confirmed ?Last Taken ?Type cholecalciferol (vitamin D3) 25 75 mcg PO DAILY 07/15/25 07/15/25 Unknown History mcg (1,000 unit) tablet (Vitamin D3) Exam Exam Date and Time: 07/19/25 0720 Height,Weight and Vital Signs: Height 5 ft 2 in Weight 86.1 kg Vital Signs Temperature 97.8 F 07/19/25 06:48 Pulse Rate 108 H 07/19/25 06:48 Respiratory Rate 16 07/19/25 06:48 Blood Pressure 109/83 07/19/25 06:48 Pulse Oximetry 96 07/19/25 06:48 Oxygen Delivery Method Room Air 07/19/25 06:48 Temperature 97.8 F 07/19/25 06:48 Pulse Rate 91 07/19/25 06:49 Respiratory Rate 16 07/19/25 06:48 Blood Pressure 109/83 07/19/25 06:48 Pulse Oximetry 96 07/19/25 06:48 Oxygen Delivery Method Room Air 07/19/25 06:48 Airway Mallampati Class: II TM Dist: >3cm Neck ROM: Full Loose/Missing/Broken Teeth: No (patient denies any loose or broken teeth) Heart: S1S2 Lungs: CTAB Assessment and Plan Assessment Anesthesia Assessment: Anesthesia Plan Discussed and Chart Reviewed Final Anesthetic Review Family History of Problems with Anesthesia: No History of Problems with Anesthesia: No NPO: Yes ASA Class: II Final Preanesthetic Review: No Changes in Pt Med Stat, Meds/Allgs Chart Reviewed, Consent Obtained/Reviewed and Anes Risks/Benef Reviewed Patient Risk: Low Procedure Risk: Low Anesthetic Plan Anesthetic Plan: MAC: and Agree w/ Assess. and Plan Disposition: Standard PACU
[2025-07-19 08:24] VITALS: BP 104/46; PULSE 89; RESP 16; TEMP 36.4; O2SAT 93
--- NOTE | 2025-07-19 08:29 | P.BOP_ITS ---
Brief Operative Note Date of Service: 07/19/25 Pre-op diagnosis: Screening Post-op diagnosis: other (Diverticulosis) Procedure: Colonoscopy to the cecum and TI Surgeon: Landon Domínguez MD Anesthesia: MAC Was an Public Administration Professor used for this Procedure?: No Estimated blood loss (mL): 0 Pathology: none sent Condition: stable Disposition: PACU
[2025-07-19 08:30] VITALS: BP 118/74; PULSE 92; RESP 18; O2SAT 96
[2025-07-19 08:43] VITALS: BP 125/100; PULSE 84; RESP 18; TEMP 37.1; O2SAT 98
--- NOTE | 2025-07-19 08:46 | OP_ITS ---
DATE OF SERVICE: 07/19/2025 SURGEON: Landon Domínguez MD INDICATIONS: Patient presents for evaluation of colorectal cancer screening. Full consent obtained from her for this including risks of bleeding and perforation. PREOPERATIVE DIAGNOSIS: Colorectal cancer screening. POSTOPERATIVE DIAGNOSIS: Colorectal cancer screening, diverticulosis, and internal hemorrhoids. PROCEDURE PERFORMED: Colonoscopy to cecum and terminal ileum. ESTIMATED BLOOD LOSS: COMPLICATIONS: ANESTHESIA: Monitored anesthesia care. ASSISTANTS: SPECIMENS: DESCRIPTION OF PROCEDURE: Patient was placed in the left lateral decubitus position. The digital rectal exam revealed no abnormalities. The Olympus video pediatric colonoscope was entered into the rectum and advanced easily to the cecum. Once in the cecum, I did identify a normal-appearing cecal pouch and normal-appearing ileocecal valve. The appendiceal orifice appeared normal. The terminal ileum was cannulated and appeared normal. The scope was withdrawn back in the colon. The entire cecum and ileocecal valve appeared normal. The scope was slowly withdrawn, assessing all mucosal surfaces carefully. Preparation was excellent after her 2 day prep. I did not visualize any sign of polyps, colitis, nor angiodysplasia. There were occasional diverticula in the ascending colon and a mild amount of diverticulosis in the sigmoid colon. In the rectum, scope was retroflexed, visualizing internal hemorrhoids, but no other pathology. The rectal mucosa appeared normal. Scope was straightened out and withdrawn from the patient. She tolerated the procedure well and was returned to recovery area in stable condition. IMPRESSION: 1. Diverticulosis. 2. Internal hemorrhoids. PLAN: Given her age of 70, this being her 3rd negative colonoscopy and no family history of colon cancer, I do not think she would need any further screening colonoscopies. She will otherwise see me on a p.r.n. basis. MD RHYS Rodriguez/CINDY / [id number]
== END 2025-07-19 09:08 | disposition home or self-care (01) ==
PROVIDERS: PCP Internal Medicine; Visit Provider Internal Medicine
PROC: 0DJD8ZZ Inspection of Lower Intestinal Tract, Via Natural or Artificial Opening Endoscopic (ICD-10-PCS; CPT 45378; principal; 2025-07-19 07:30)
DX: Z12.11 Encounter for screening for malignant neoplasm of colon (principal); K57.30 Diverticulosis of large intestine without perforation or abscess without bleeding; K64.8 Other hemorrhoids; K59.00 Constipation, unspecified; E78.5 Hyperlipidemia, unspecified; Z80.1 Family history of malignant neoplasm of trachea, bronchus and lung; Z79.899 Other long term (current) drug therapy; Z96.641 Presence of right artificial hip joint; Z90.49 Acquired absence of other specified parts of digestive tract; Z98.890 Other specified postprocedural states
CPT/HCPCS: G0121; J2003; J2704